=== PATIENT | male | born 1950 | race Caucasian/White ===

== ENCOUNTER → 2016-12-12 | Day surgery (SDC) | payer OTHER ==
[2016-11-02 10:23] VITALS: BMI 31.0
[2016-11-17 15:32] VITALS: Ht 177.8 cm; Wt 100.0 kg
[~2016-12-12] VITALS: Ht 177.8 cm; Wt 100.0 kg
[~2016-12-12] MED LIST: 500ML BSS 0.3ML EPI 1:1000PF IRRIG ONE; ACETAMINOPHEN 325 MG TAB PO PRN; AMIL5TAB15 PO; AMLO-114 PO; AMVISC PLUS 0.8ML SYRINGE INT OCU ONE; ATROPINE SULFATE 0.1 MG/ML 5ML SYR IV PRN; BRIMONIDINE TART 0.2% OP SOLN PER DROP CHARGE ONE; BSS FLUSH ONE; CAMPLOT10 TOP; ENDOCOAT 0.85ML SYRINGE INT OCU ONE; EZET10TA63 PO; EpHEDrine SULFATE INJ 50 MG/ML AMP IV PRN; EpINEphrine INJ 1MG/ML AMP 1 MG/ML AMP ONE; HYDR-4717 PO; LACTATED RINGER'S 1000ML 500 ML IV SCH; LIDOCAINE 4% OP SOLN DROP CHARGE ONE; LIDOCAINE 4% OP SOLN DROP CHARGE OPR SCH; LIDOCAINE HCL 1% MPF 2 ML VIAL ONE; LORA10TA5 PO; LOSA1TAB38 PO; METO50TA16 PO; MIDAZOLAM HCL 1 MG/ML 2ML VIAL ONE; MIX: 3ML BSS AND 1ML EPI(PF) TOP ONE; MOXIFLOXACIN OPH SOLN PER DROP CHARGE ONE; MULT-845 PO; POTA10CA28 PO; POVIDONE-IODINE OP SOLN 30 ML BTL ONE; PROB1TAB16 PO; PROPARACAINE 0.5% OP SOLN PER DROP CHARGE OPR SCH; TOBRAMYCIN/DEXAMETHASONE OPH OINT PER APPLN CHARGE ONE; VNTHFA/IN INH; ZNT/150 PO
[2016-12-12] MEDS: PHENYLEPHRINE HCL 2.5% OP SOLN PER DROP CHARGE OPR SCH ×2 (09:28→09:33)
[2016-12-12] MEDS: TROPICAMIDE 1% OP SOLN PER DROP CHARGE OPR SCH ×2 (09:29→09:34)
[2016-12-12] MEDS: CYCLOPENTOLATE HCL 1% OP SOLN PER DROP CHARGE OPR SCH ×2 (09:30→09:35)
[2016-12-12] MEDS: KETOROLAC 0.5% OP SOLN PER DROP CHARGE OPR SCH ×2 (09:31→09:36)
[2016-12-12] MEDS: MOXIFLOXACIN OPH SOLN PER DROP CHARGE OPR SCH ×2 (09:32→09:42)
--- NOTE | 2016-12-12 10:08 | History & Physical Bridge - [place] ---
H&P Re-Evaluation Bridge Note: I have examined the patient, reviewed the History & Physical and in the interval since the performance of the History & Physical I have noted the following changes of clinical significance: No changes noted
--- NOTE | 2016-12-12 11:08 | Discharge Instructions-SurgCtr ---
Discharge Instructions Date of Service Dec 12, 2016. Visit Reason for Visit: Cataract Right Eye Discharge Discharge Diagnosis / Problem: cataract right eye Discharge Goals Goal(s): Improve function Activity Recommendations Activity Limitations: per Instructions/Follow-up section Lifting Limitations: no more than 5 pounds Anesthesia . Post Anesthesia Instructions: If you have had General Anesthesia or IV Sedation: * Do not drive today. * Resume driving when surgeon permits. * Do not make important decisions or sign legal documents today. * Call surgeon for: 1. Temperature elevations greater than 101 degrees F. 2. Uncontrollable pain. 3. Excessive bleeding. 4. Persistent nausea and vomiting. 5. Medication intolerance (nausea, vomiting or rash). * For nausea and vomiting use only clear liquids such as: tea, soda, bouillon until nausea subsides, then gradually increase diet as tolerated. * If you have any concerns or questions, call your surgeon's office. If physician is unavailable and it is an emergency, call 911 or go to the nearest emergency room. . Instructions / Follow-Up Instructions / Follow-Up ACTIVITY RECOMMENDATIONS: * Light activities * You may walk outside, read, watch television. * Mild irritation and blurred vision are common for the first few days, redness around the white part of the eye is common. MEDICATIONS: Resume previous medications unless instructed otherwise by your surgeon. Eye drops (today and tomorrow): Cipro - one drop in operative eye every 2 hours while awake Prednisolone 1% - one drop in operative eye every 2 hours while awake Bromfenac - one drop in operative eye once daily SPECIAL CARE INSTRUCTIONS: * If any problems or concerns, please call Dr. Franklin's office at . * Keep plastic shield taped over eye to sleep at night. * Keep plastic shield taped over eye except to administer eye drops. * Keep plastic shield on until office visit the following day. FOLLOW UP VISIT: Follow-up with Dr. Franklin in the [place] office as scheduled. If not already scheduled, please call the office at . Diet Recommendations Home Diet: resume previous diet Procedures Procedures Performed: Right Cataract Phacoemulsification With Intraocular Lens Implant Pending Studies Studies pending at discharge: no Medical Emergencies . Who to Call and When: Medical Emergencies: If at any time you feel your situation is an emergency, please call 911 immediately. . Non-Emergent Contact Non-Emergency issues call your: Multimedia Author . . "Provider Documentation" section prepared by Nuno Franklin.
--- NOTE | 2016-12-12 11:09 | [facility] Post Operative Brief Note ---
Immediate Operative Summary Operative Date Dec 12, 2016. Pre-Operative Diagnosis Cataract Right Eye Post-Operative Diagnosis Same Procedure(s) Performed Right Cataract Phacoemulsification With Intraocular Lens Implant Surgeon Dr. Franklin Supervisor Phosphoric Acid Surgeon(s) None Estimated Blood Loss 0 Findings cataract right eye Specimens None Complication(s) None Disposition Recovery Room / PACU
[2016-12-12 11:15] VITALS: TEMP 36.8
[2016-12-12 11:32] VITALS: BP 113/64; PULSE 50; O2SAT 95
--- NOTE | 2016-12-12 11:33 | Anesthesia Progress Nt - [facility] ---
Anesthesia Post Op Note Date & Time Dec 12, 2016 at 11:33 Vital Signs Pain Intensity: 0 Vital Signs Past 12 Hours Date Time Temp Pulse Resp B/P Pulse Ox O2 Delivery O2 Flow Rate FiO2 12/12/16 11:15 36.8 52 16 113/66 95 Room Air 12/12/16 09:21 36.9 55 20 141/78 95 Room Air Notes Mental Status: alert / awake / arousable, participated in evaluation Pt Amnestic to Procedure: Yes Nausea / Vomiting: adequately controlled Pain: adequately controlled Airway Patency, RR, SpO2: stable & adequate BP & HR: stable & adequate Hydration State: stable & adequate Anesthetic Complications: no major complications apparent
--- NOTE | 2016-12-12 14:10 | OPERATIVE REPORT ---
DATE OF OPERATION: 12/12/2016 PREOPERATIVE DIAGNOSIS: Cataract, right eye. POSTOPERATIVE DIAGNOSIS: Cataract, right eye. PROCEDURE: Phacoemulsification cataract extraction with intraocular lens placement, right eye. SURGEON: Dr. Franklin. COMPLICATIONS: None. ESTIMATED BLOOD LOSS: None. ANESTHESIA: Topical with sedation. OPERATION AND FINDINGS: DESCRIPTION OF PROCEDURE: After informed consent was obtained in the holding area the patient was wheeled back to the Operating Room where cardiac monitoring leads and oxygen by nasal cannula was administered by Anesthesia. Gentle IV sedation was given, and the patient's right eye was prepped and draped in usual sterile fashion. A wire lid speculum was placed into the right eye and the operating microscope was swung into position. Using 0.12 forceps and a Supersharp blade a paracentesis port was made 3 o'clock hours away from the 9 o'clock position of patient's right eye. 1% non-preserved Lidocaine was then injected into the anterior chamber for anesthesia. A 2.2 mm keratotome blade was then used to make a shelved clear corneal incision at the 9 o'clock position of his right eye. Amvisc was injected into the anterior chamber and a cystotome and Utrata forceps were used to perform a curvilinear capsulorrhexis. BSS on a hydrodissection cannula was used to hydrodissect the lens nucleus away from the capsular bag. The phacoemulsification handpiece was then used in a stop and chop fashion to remove the lens nucleus. The irrigation and aspiration handpiece was then used to remove the residual cortical material. Amvisc was injected into the capsular bag and anterior chamber and a Bausch \T\ Lomb MX60 23.0 Diopter intraocular lens was injected into the capsular bag. Irrigation and aspiration handpiece was used to remove the residual viscoelastic material. The wounds were hydrated and noted to be watertight. The wire lid speculum was removed from the eye. Vigamox, Brimonidine, and TobraDex ointment were placed on the eye and it was shielded. It should be noted that EndoCoat was used throughout the case to protect the cornea endothelium. A mixture of 1 mL of nonpreserved epinephrine and 3 mL of BSS was also injected into the eye at the beginning of the case to aid with pupillary dilation in this Flomax patient. DISPOSITION: The patient tolerated the procedure well and was wheeled to the post anesthesia care unit in stable condition. I attest to the content of the Intraoperative Record and any orders documented therein. Any exceptions are noted below. I attest to the content of the Intraoperative Record and any orders documented therein. Any exceptio ns are noted below.
== END | disposition home or self-care (01) ==
LOC: X.SURG 08:59
PROVIDERS: ATTEND Ophthalmology
DX: H25.11 Age-related nuclear cataract, right eye (principal); I51.9 Heart disease, unspecified; I10 Essential (primary) hypertension; Z82.49 Family history of ischemic heart disease and other diseases of the circulatory system; Z85.46 Personal history of malignant neoplasm of prostate

== ENCOUNTER 2019-03-11 15:01 | Inpatient (IN) ==
[2019-03-11] MEDS ORDERED: SODIUM CHLORIDE 0.9% 500 ML IV SCH (15:15)
--- NOTE | 2019-03-11 15:31 | XRay Report ---
XR chest 1V portable CLINICAL HISTORY: Chest Pain dyspnea COMPARISON STUDY: 01/09/2019 FINDINGS: Increased cardiac size as well as pulmonary vasculature. Diaphragms are smooth. Costophreni c angles are sharp. Prominence of the right hilar region most likely secondary to rotational technica l effects IMPRESSION: . Congestive heart failure. The above report was generated using voice recognition software. It may contain grammatical, syntax or spelling errors. Electronically signed by: Everette Jaquez M.D. 03/11/2019 3:30 PM
[2019-03-11 17:11] LABS: Basophils # (auto) 0.01 K/uL (0-0.2); Basophils % (auto) 0.1 %; Eosinophils # (auto) 0.01 K/uL (0-0.5); Eosinophils % (auto) 0.1 %; Hematocrit (blood only) 31.2 % (42-52); Hemoglobin 10.6 g/dL (14.0-18.0); Immature Granulocytes # (auto) 0.04 K/uL (0.00-0.02); Immature Granulocytes % (auto) 0.3 %; Lymphocytes # (auto) 0.97 K/uL (1.2-3.4); Lymphocytes % (auto) 8.3 %; Mean Corpuscular Volume 92.6 fL (80-100); Mean Platelet Volume 11.9 fL (7.4-10.4); Monocytes # (auto) 0.78 K/uL (0.11-0.59); Monocytes % (auto) 6.7 %; Neutrophils # (auto) 9.84 K/uL (1.4-6.5); Neutrophils % (auto) 84.5 %; Platelet Count 128 K/uL (130-400); RDW Standard Deviation 47.3 fL (36.4-46.3); Red Blood Count 3.37 M/uL (4.7-6.1); White Blood Count 11.65 K/uL (4.8-10.8)
[2019-03-11 17:20] LABS: INR 2.9 (0.9-1.1); Prothrombin Time 27.7 Seconds (9.0-12.0)
[2019-03-11 17:34] LABS: Albumin Level 3.6 gm/dl (3.4-5.0); BUN Creatinine Ratio 10.9 (10-20); Bilirubin Direct 0.4 mg/dl (0-0.2); Calcium 8.8 mg/dl (8.5-10.1); Creatinine Clr Calc Pharmacy 49.1 ml/min; Est GFR (African American) 45.7; Est GFR (Non-African American) 39.4; Magnesium 2.1 mg/dl (1.8-2.4); Potassium 3.4 mmol/L (3.5-5.1)
[2019-03-11 17:39] LABS: Bilirubin,Total 1.3 mg/dl (0.2-1); Globulin 3.6 gm/dl (2.5-4.0); Total Protein 7.2 gm/dl (6.4-8.2); Troponin I 0.022 ng/ml (0-0.045)
--- NOTE | 2019-03-11 18:26 | CT Scan Report ---
CT OF THE CHEST WITHOUT IV CONTRAST CLINICAL HISTORY: Short of breath. Prostate cancer. COMPARISON STUDY: Chest CT January 09, 2019. Chest radiograph March 11, 2019. CT DOSE: 1339.98 mGy.cm TECHNIQUE: Axial images of the chest were obtained without IV contrast. Images were reviewed in the axial, sagittal, and coronal planes. IV contrast was not administered for this examination. Automat ed exposure control was utilized for the study. A dose lowering technique was utilized adhering to t he principles of ALARA. FINDINGS: Mildly enlarged mediastinal lymph nodes are noted, including a precarinal lymph node that measures 1.5 cm in short axis diameter. The heart is mildly enlarged. Extensive coronary artery calci fication. Occluder device within left atrial appendage is noted. Note is made of small right and trac e left pleural effusions. Associated bilateral lower lobe airspace opacity. Bilateral perihilar opaci ties are greater within the right lung. Interlobular septal thickening is noted. Lungs are suboptimal ly assessed given respiratory motion. A few small sclerotic lesions within the bilateral ribs are sim ilar to CT of January 09, 2019. These remain indeterminate. The abdomen and pelvis will be reported separa tely. IMPRESSION: 1. Interlobular septal thickening consistent with pulmonary edema. Small right and trace left pleural effusions. 2. Extensive bilateral airspace opacities which favor alveolar edema although pneumonia could appear similar. 3. No change in several indeterminate sclerotic lesions within the bilateral ribs which be assessed o n subsequent exams to ensure stability. 4. Mild mediastinal lymphadenopathy which may be reactive but can be assessed on subsequent exams. Electronically signed by: Manjeet Saucedo M.D. 03/11/2019 6:24 PM
--- NOTE | 2019-03-11 18:41 | CT Scan Report ---
CT OF THE ABDOMEN AND PELVIS WITHOUT CONTRAST CLINICAL HISTORY: metastatic prostate CA, vomiting/hemotpysis COMPARISON STUDY: CT of the abdomen and pelvis January 09, 2019. MRI of the abdomen January 23, 2019. TECHNIQUE: Axial images of the abdomen and pelvis were obtained without IV contrast. Images were revi ewed in the axial, sagittal, and coronal planes. Automated exposure control was utilized for the michelle dy. A dose lowering technique was utilized adhering to the principles of ALARA. FINDINGS: These note that the chest CT will be reported separately. No pneumatosis, free air or terence l venous gas is present. Evaluation of the abdomen and pelvis is suboptimal on this unenhanced examin ation. 3.3 cm right hepatic lobe lesion is suboptimally assessed on this exam but likely increased in size since MRI of January 23, 2019 10. An additional 2.2 cm right hepatic lobe lesion has likely increas ed in size. A 3.5 x 2.4 cm terence hepatis lymph node has slightly increased in size since prior MRI. L eft periaortic lymphadenopathy is noted. Index left periaortic lymph node shown image 201 measures 2. 5 x 1.8 cm. Severe right and moderate to severe left hydroureteronephrosis is similar to CT of January 09, 2019. Several distal right ureteral calculi measure up to 4 mm. Note is made of a 4 mm mid left uret eral calculus. Bilateral renal calculi measure up to 9 mm. Water attenuation bilateral renal lesions favor cysts. No evidence for a bowel obstruction. A small amount of ascites is noted. A penile implan t is noted. A 1.2 cm hyperdense nodule within the right hemipelvis on axial image 427 has slightly de creased in size since CT of January 09, 2019. The prostate gland is surgically absent. Colonic diverticulo sis is noted without evidence for acute diverticulitis. IMPRESSION: 1. Increase in terence hepatis and periaortic lymphadenopathy which favors progression of metastatic di sease. 2. Slight increase in size of several indeterminate but suspicious right hepatic lobe lesions. 3. Small amount of ascites. No bowel obstruction. Colonic diverticulosis without evidence for acute d iverticulitis. 4. No change in severe right and moderate to severe left hydroureteronephrosis with distal right uret eral calculi that measure up to 4 mm and a 4 mm mid left ureteral calculus. 2. Cholelithiasis. No evidence for acute cholecystitis. Electronically signed by: Manjeet Saucedo M.D. 03/11/2019 6:38 PM
[2019-03-11] MEDS ORDERED: VANCOMYCIN HCL 2,000 MG in SODIUM CHLORIDE 0.9% 500 ML IV ONE (19:19)
[2019-03-11] MEDS ORDERED: VANCOMYCIN CONSULT ACTIVE PRN (19:19)
[2019-03-11] MEDS ORDERED: CEFEPIME 2,000 MG/20 ML VIAL IV STA (19:19)
[2019-03-11] MEDS ORDERED: DOXYCYCLINE HYCLATE 100 MG in DEXTROSE 5% 100 ML IV STA (19:19)
--- NOTE | 2019-03-11 21:24 | History & Physical Report ---
Date of Service March 11, 2019 Assessment & Plan (1) Hemoptysis: 68-year-old male was admitted on 11 March 2018 for hemoptysis, shortness of breath, and pleural effusions. Hemoptysis, shortness of breath, CAP, pleural effusions: Noted bright red streaks sputum, small volume (sounds definitely less than 30 mL). Suspect CAP as underlying cause, though full source of effusions is unclear. 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 - In ED, afebrile on arrival but later 101.8, not tachycardic, tachypneic in the 30s, moderately hypertensive, with lowest SpO2 of 88% on 2 L NC. WBC 11. BNP 3990. Admit CT chest showed likely pulmonary edema, question of pneumonia, along with small bilateral pleural effusions. - In ED, ordered (? given) vancomycin, doxycycline, cefepime, and NS IVF. On BiPAP. - We will treat for CAP with ceftriaxone and azithromycin. Continue BiPAP with goal to wean to nasal cannula. Check echocardiogram. Anemia: Admit Hb 10.6, MCV 92. Slight hemoptysis as noted above. Monitoring. Metastatic prostate cancer, s/p radical prostatectomy: Followed at [facility], not locally. Is on rucaparib. Elevated creatinine: Admit Cr 1.76. No particular noted history of renal issues. - Hydrate with IVF, recheck in a.m. History of atrial flutter with RVR: S/p Watchman procedure in December 2018. Admit EKG was NSR 80 with QTc 470. On Coumadin apparently for small clot on his device. Admit INR 2.9. - We will temporarily hold Coumadin given the mild hemoptysis. Recheck INR in AM. Likely resume in next 1-[address] a/p findings: - Burton hepatis, periaortic lymphadenopathy, suspicious right hepatic lobe lesions, small amount of ascites. - Colonic diverticulosis. - Unchanged severe right and left hydronephrosis along with ureteral calculi. - Cholelithiasis without evidence of cholecystitis. Constipation: As noted by patient x 5 days prior to admit. BM on 01Jul. - Monitor. Miralax prn. Ongoing medical issues: - Hypertension, hyperlipidemia: Continue amiloride, amlodipine, ezetimibe, hydralazine, losartan, metoprolol, potassium. - GERD: On ranitidine. - MARTHA on CPAP. - Adjustment disorder, anxiety: Continue bupropion. - Prior GI bleed: Around 2012. Patient says colonoscopy in February 2019 noted polyps and endoscopy was unremarkable. - Nephrolithiasis. - Osteoarthritis: Bilateral knees. Code status: Full code. Diet: Regular. DVT prophy: Coumadin, SCDs. PT/OT: Deferred. Disbo: Admit to [facility] with telemetry. (2) Shortness of breath: (3) Community acquired pneumonia: (4) Pleural effusion: (5) Anemia: (6) 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: (7) Elevated serum creatinine: (8) Atrial fibrillation: (9) Ascites: (10) Diverticulosis: (11) Hydronephrosis: (12) Cholelithiasis: (13) Constipation: (14) HTN (hypertension): (15) Hyperlipidemia: (16) GERD (gastroesophageal reflux disease): (17) MARTHA on CPAP: (18) Adjustment disorder: (19) Anxiety: (20) History of GI bleed: (21) Nephrolithiasis: (22) Osteoarthritis: History of Present Illness Primary Care Provider: Bruce Ness MD 68-year-old male says that just prior to arrival in the admission he noted a couple of coughs that were productive of a bright red bloody-appearing streaks of sputum. Says his cough started earlier today. Has felt warm throughout today. He did note a single episode of non-bloody emesis earlier this morning with some slight stomach upset, though this was about 30 minutes after taking his chemotherapy for his metastatic prostate cancer. He notes some shortness of breath today but states is actually been more like for the past few months. Apparently this is not been previously evaluated. He denies associated chest pain. Says that some swelling in his legs comes and goes. Also states that he has been constipated for about 5 days. He contacted his oncologist about this, was recommended to start MiraLAX, and had a subsequent normal sized bowel movement today. No other acute patient concerns. - He says all of his oncology care is via [facility]. No local [place] providers. - His primary care provider is Dr. Ness. His cardiologists are Dr. Martinez and Amarjit. - Past medical history includes metastatic prostate cancer, atrial flutter with RVR, diverticulosis, nephrolithiasis, hypertension, hyperlipidemia, GERD, MARTHA, adjustment disorder, anxiety, GI bleed, osteoarthritis. - Past surgical history includes radical prostatectomy, tonsillectomy, implantation of artificial urinary sphincter, cataract surgery - Social history includes never smoking. Rare alcohol use. Lives at home with . Allergies Allergy/AdvReac Type Severity Reaction Status Date / Time atorvastatin Allergy Unknown "FUZZY Verified 03/11/19 16:35 THOUGHT PROCESS AND DEPRESSION LIKE SYMPTOMS" lisinopril Allergy Unknown SWELLING Verified 03/11/19 16:35 IN ANKLES Eivasvl-Waf-Maq Reductase Allergy Unknown Verified 03/11/19 16:35 Inhibitor Home Medications Home Medications Medication Instructions Recorded Confirmed Type Centrum Silver 1 tab PO DAILY 07/04/18 03/11/19 History amiloride 5 mg PO QAM 07/04/18 03/11/19 History amlodipine 10 mg PO QAM 07/04/18 03/11/19 History hydralazine 75 mg PO TID 07/04/18 03/11/19 History losartan 100 mg PO QAM 07/04/18 03/11/19 History metoprolol tartrate 50 mg PO AMPM 07/04/18 03/11/19 History potassium chloride 20 meq PO QAM 07/04/18 03/11/19 History ranitidine HCl 150 mg PO QPM 07/04/18 03/11/19 History amoxicillin 4 cap PO UD PRN 01/09/19 03/11/19 History cholecalciferol (vitamin D3) 400 unit PO DAILY 01/09/19 03/11/19 History [Vitamin D3] cyclobenzaprine 5 - 10 mg PO HS PRN 01/09/19 03/11/19 History loratadine 10 mg PO DAILY PRN 01/09/19 03/11/19 History melatonin 2.5 mg PO HS 01/09/19 03/11/19 History metoprolol tartrate 25 mg PO . DAILY @ MIDDAY 01/09/19 03/11/19 History terazosin 4 mg PO HS 01/09/19 03/11/19 History bupropion HCl XL 150 mg 24 hr 150 mg PO QAM #30 tab 03/05/19 03/11/19 Rx tablet, extended release rucaparib 300 mg tablet 600 mg PO BID #180 tab 03/05/19 03/11/19 Rx warfarin 5 mg tablet 5 mg PO .DAILY UD 03/05/19 03/11/19 History ezetimibe 10 mg PO QPM 03/11/19 03/11/19 History Past Med/Surg History Medical History Acid reflux (Acute) Adjustment disorder (Acute) Arthritis (Acute) Atrial fibrillation (Acute) Hyperlipidemia (Acute) Community acquired pneumonia (Acute) HTN (hypertension) (Chronic) GERD (gastroesophageal reflux disease) (Chronic) Dyslipidemia (Chronic) MARTHA on CPAP (Chronic) History of prostate cancer (Chronic) Atrial flutter with rapid ventricular response (Acute) Anemia Anxiety Atrial flutter Cancer PROSTATE CANCER Diverticulosis GERD (gastroesophageal reflux disease) Hyperlipidemia Hypertension Kidney stones Osteoarthritis Sleep apnea CPAP Surgical History S/P prostatectomy (Chronic) S/P tonsillectomy (Chronic) Status post implantation of artificial urinary sphincter (Chronic) H/O lithotripsy (Chronic) Colon polyp REMOVED (LEELA) VIA EGD H/O eye surgery RT EYE-LASER PROCEDURE History of colonoscopy History of esophagogastroduodenoscopy (EGD) History of implantation of artificial sphincter History of lithotripsy History of prostatectomy WITH RADIATION History of tonsillectomy History of tooth extraction Family History Brother Family history of diabetes mellitus Family hx of colon cancer Alcohol abuse Cancer Hypertension Lung disease Cardiac disorder Father Alcohol abuse Hypertension Cardiac disorder Cancer Unknown Myocardial infarction Prostate cancer Colorectal cancer Social History Preferred Language: Maldivian Communication Ability: Effective Beliefs That Will Affect Care: None Current Living Situation: Spouse Feels Safe at Home: Yes Smoking Status: Never smoker Second Hand Exposure: No Hx Alcohol Use: No Hx Substance Use: No Review of Systems Review of Systems: Constitutional: Positive feeling warm and chills. Eyes: Denies any visual loss or diplopia ENT: Denies any ear/nose/throat pain or difficulty speaking or swallowing Respiratory: Positive cough, mild hemoptysis, and dyspnea. Cardiovascular: Denies any chest pain. Ongoing on and off feeling of extremity edema. Gastrointestinal: Transient nausea and vomiting. Denies diarrhea. Positive recent constipation. Denies ongoing abdominal pain. Musculoskeletal: Denies any acute extremity pains, myalgias, or focal weakness Skin: Denies any known acute rashes or lesions Neuro: Denies any headache, acute focal weakness or numbness, or difficulties with speech or swallow. Hematologic: Ongoing prostate cancer chemotherapy. Physical Exam Physical Exam: GENERAL: Awake, alert, well-appearing, in no acute distress. HENT: Normocephalic, atraumatic. Very dry oropharynx but no blood seen in posterior pharynx or anterior nasal mucosa. EYES: Normal conjunctiva. Sclera non-icteric. NECK: Inspection normal. Non-tender. Supple and full ROM. CARDIAC: +S1S2 RRR, no murmurs. RESPIRATORY: Decreased breath sounds throughout. Some rales at the bilateral bases. Normal respiratory effort. Conversational in full sentences on nasal cannula oxygen, though some mild work of breathing. This improves on BiPAP. GI: +BS, soft, but appears mildly distended. No tenderness to palpation. No rebound or guarding. EXTREMITIES: Moving all extremities naturally and easily. Trace edema in bilateral extremities. No calf tenderness. NEURO: No gross neuro deficits. Results & Data Vital Signs (Past 12 Hours) Vital Signs Temp Pulse Resp BP Pulse Ox 03/11/19 21:04 83 30 H 99 03/11/19 19:00 83 28 H 153/74 H 96 03/11/19 18:50 87 23 98 03/11/19 18:40 85 30 H 95 03/11/19 18:31 87 31 H 95 03/11/19 18:30 84 30 H 150/71 H 96 03/11/19 18:20 86 29 H 95 03/11/19 18:19 156/73 H 03/11/19 17:40 85 22 95 03/11/19 17:31 86 26 H 92 03/11/19 17:30 87 24 92 03/11/19 17:20 86 28 H 89 L 03/11/19 17:10 86 34 H 89 L 03/11/19 17:00 87 27 H 90 03/11/19 16:50 86 20 90 03/11/19 16:40 86 23 90 03/11/19 16:30 88 32 H 89 L 03/11/19 16:20 88 33 H 90 03/11/19 16:10 89 30 H 85 L 03/11/19 16:00 93 H 36 H 88 L 03/11/19 15:50 90 32 H 88 L 03/11/19 15:40 93 H 40 H 90 03/11/19 15:35 84 24 90 03/11/19 15:30 84 34 H 136/67 91 03/11/19 15:24 89 L 03/11/19 15:05 36.8 C 77 20 133/67 90 Laboratory Results 03/11/19 03/11/19 03/11/19 Range/Units 20:21 16:54 16:54 WBC (4.8-10.8) K/uL RBC (4.7-6.1) M/uL Hgb (14.0-18.0) g/dL Hct (42-52) % MCV (80-100) fL MCH (25-34) pg MCHC (32-36) g/dL RDW Std Deviation (36.4-46.3) fL RDW Coeff of Lauren (11.5-14.5) % Plt Count (130-400) K/uL MPV (7.4-10.4) fL Immature Gran % (Auto) % Neut % (Auto) % Lymph % (Auto) % [place] % (Auto) % Eos % (Auto) % Baso % (Auto) % Immature Gran # (Auto) (0.00-0.02) K/uL Neut # (Auto) (1.4-6.5) K/uL Lymph # (Auto) (1.2-3.4) K/uL [place] # (Auto) (0.11-0.59) K/uL Eos # (Auto) (0-0.5) K/uL Baso # (Auto) (0-0.2) K/uL PT (9.0-12.0) Seconds INR (0.9-1.1) Sodium (136-145) mmol/L Potassium (3.5-5.1) mmol/L Chloride (98-107) mmol/L Carbon Dioxide (21-32) mmol/L Anion Gap (3-11) BUN (7-18) mg/dl Creatinine (0.6-1.4) mg/dl Est Cr Clr Drug Dosing ml/min Est GFR ( Amer) Est GFR (Non-Af Amer) BUN/Creatinine Ratio (10-20) Glucose (70-99) mg/dl Lactate 2.0 (0.4-2.0) mmol/L Calcium (8.5-10.1) mg/dl Magnesium (1.8-2.4) mg/dl Total Bilirubin (0.2-1) mg/dl Direct Bilirubin (0-0.2) mg/dl AST (15-37) U/L ALT (12-78) U/L Alkaline Phosphatase (45-117) U/L Troponin I (0-0.045) ng/ml NT-Pro-B Natriuret Pep 3990 H (0-900) pg/ml Total Protein (6.4-8.2) gm/dl Albumin (3.4-5.0) gm/dl Globulin (2.5-4.0) gm/dl Albumin/Globulin Ratio (0.9-2) Lipase (73-393) U/L Blood Type A Positive Antibody Screen NEGATIVE 03/11/19 03/11/19 03/11/19 Range/Units 16:54 16:54 16:54 WBC 11.65 H (4.8-10.8) K/uL RBC 3.37 L (4.7-6.1) M/uL Hgb 10.6 L (14.0-18.0) g/dL Hct 31.2 L (42-52) % MCV 92.6 (80-100) fL MCH 31.5 (25-34) pg MCHC 34.0 (32-36) g/dL RDW Std Deviation 47.3 H (36.4-46.3) fL RDW Coeff of Lauren 14.0 (11.5-14.5) % Plt Count 128 L (130-400) K/uL MPV 11.9 H (7.4-10.4) fL Immature Gran % (Auto) 0.3 % Neut % (Auto) 84.5 % Lymph % (Auto) 8.3 % [place] % (Auto) 6.7 % Eos % (Auto) 0.1 % Baso % (Auto) 0.1 % Immature Gran # (Auto) 0.04 H (0.00-0.02) K/uL Neut # (Auto) 9.84 H (1.4-6.5) K/uL Lymph # (Auto) 0.97 L (1.2-3.4) K/uL [place] # (Auto) 0.78 H (0.11-0.59) K/uL Eos # (Auto) 0.01 (0-0.5) K/uL Baso # (Auto) 0.01 (0-0.2) K/uL PT 27.7 H (9.0-12.0) Seconds INR 2.9 H (0.9-1.1) Sodium 142 (136-145) mmol/L Potassium 3.4 L (3.5-5.1) mmol/L Chloride 108 H (98-107) mmol/L Carbon Dioxide 23 (21-32) mmol/L Anion Gap 11.0 (3-11) BUN 19 H (7-18) mg/dl Creatinine 1.76 H (0.6-1.4) mg/dl Est Cr Clr Drug Dosing 49.1 ml/min Est GFR ( Amer) 45.7 Est GFR (Non-Af Amer) 39.4 BUN/Creatinine Ratio 10.9 (10-20) Glucose 97 (70-99) mg/dl Lactate (0.4-2.0) mmol/L Calcium 8.8 (8.5-10.1) mg/dl Magnesium 2.1 (1.8-2.4) mg/dl Total Bilirubin 1.3 H (0.2-1) mg/dl Direct Bilirubin 0.4 H (0-0.2) mg/dl AST 20 (15-37) U/L ALT 24 (12-78) U/L Alkaline Phosphatase 71 (45-117) U/L Troponin I 0.022 (0-0.045) ng/ml NT-Pro-B Natriuret Pep (0-900) pg/ml Total Protein 7.2 (6.4-8.2) gm/dl Albumin 3.6 (3.4-5.0) gm/dl Globulin 3.6 (2.5-4.0) gm/dl Albumin/Globulin Ratio 1.0 (0.9-2) Lipase 70 L (73-393) U/L Blood Type Antibody Screen Medications Administered Discontinued Medications Sodium Chloride (Nss) 500 mls @ 999 mls/hr IV .Q31M HIMA Stop: 07/01/19 15:45 Last Admin: 03/11/19 17:02 Dose: Not Given Documented by: [id number] Code Status & VTE Plan Code Status Full code VTE Prophylaxis Plan VTE Prophylaxis will be ordered: Yes Supervising Physician Co-Signing Physician Notes Patient seen and examined, chart reviewed, case discussed with Dr. Prado and I agree with his assessment and plan as documented above. Briefly, patient is a 68yo C male with history of metastatic prostate CA s/p radical prostatectomy/XRT/chemo/androgen deprivation presently enrolled in clinical trial. Patient presents with one day of cough/SOB and blood tinged sputum. Nausea and vomiting earlier today. Febrile in ER On exam he is febrile, mildly hypertensive, saturating 88-92% on NC 2L during exam, improved to 96% with returning to BiPAP 12/6 50% after exam HEENT - dry oral mucosa Heart - +S1/S2, regular with ectopy, no m/r/g Lungs - diminished in bases, soft crackles in right mid lung Abd - +BS, soft, NT/ND Ext - trace edema Labs and images reviewed, significant for WBC=11.65, Sjo=153, Hg=10.6, Hct=31.2, INR=2.9. UDB=[id number] Assessment/Plan: 68yo C male with metastatic prostate CA presenting with possible PNA, fever/leukocytosis -Admit to medical floor -Ceftriaxone/Azithromycin -BiPAP -Remainder of plan as above PG Care Time/CCT Total # of Minutes Spent Total Time Spent with Patient: Total time spent is greater than 50% in coordination of care (as documented) at patient's floor/unit and/or counseling patient: Resident Activity Tracking Resident Involvement: Resident Care Provided Care Provided: Adult Hospital Medicine
--- NOTE | 2019-03-11 21:38 | Emergency Department Note ---
Entered by Garo Stoner acting as a scribe for Nicolás Smith MD History of Present Illness General Chief complaint: Cough Stated complaint: COUGHING UP BLOOD Time Seen by Provider: 03/11/19 15:14 Source: patient History of Present Illness Onset (ago): hour(s) 1 Location: chest (lungs) Pain Consistency: + now resolved Quality: + other (hemoptysis) Associated symptoms: no other (nosebleeds) The patient is a 68 year old male who presents to the Emergency Room with compl aints of an episode of hemoptysis occurring about one hour prior to arrival. The patient reports that after coughing for a period of time, he coughed sputum with some blood into a tissue. He states that he vomited this morning without blood, but he attributes this to a side effect of a chemotherapy medication he is taking for prostate cancer. He states that he has recently been constipated, but he had a bowel movement prior to arrival that was not black or bloody. He notes that he felt congested yesterday. He denies nosebleeds or history of these symptoms. He states that his oncologist is at [facility], and he does not see a local oncologist. He reports that he takes Coumadin for atrial fibrillation, and his last INR was 2.7. Home Medications Home Medications Medication Instructions Recorded Confirmed Type Centrum Silver 1 tab PO DAILY 07/04/18 03/11/19 History amiloride 5 mg PO QAM 07/04/18 03/11/19 History amlodipine 10 mg PO QAM 07/04/18 03/11/19 History hydralazine 75 mg PO TID 07/04/18 03/11/19 History losartan 100 mg PO QAM 07/04/18 03/11/19 History metoprolol tartrate 50 mg PO AMPM 07/04/18 03/11/19 History potassium chloride 20 meq PO QAM 07/04/18 03/11/19 History ranitidine HCl 150 mg PO QPM 07/04/18 03/11/19 History amoxicillin 4 cap PO UD PRN 01/09/19 03/11/19 History cholecalciferol (vitamin D3) 400 unit PO DAILY 01/09/19 03/11/19 History [Vitamin D3] cyclobenzaprine 5 - 10 mg PO HS PRN 01/09/19 03/11/19 History loratadine 10 mg PO DAILY PRN 01/09/19 03/11/19 History melatonin 2.5 mg PO HS 01/09/19 03/11/19 History metoprolol tartrate 25 mg PO . DAILY @ MIDDAY 01/09/19 03/11/19 History terazosin 4 mg PO HS 01/09/19 03/11/19 History bupropion HCl XL 150 mg 24 hr 150 mg PO QAM #30 tab 03/05/19 03/11/19 Rx tablet, extended release rucaparib 300 mg tablet 600 mg PO BID #180 tab 03/05/19 03/11/19 Rx warfarin 5 mg tablet 5 mg PO .DAILY UD 03/05/19 03/11/19 History ezetimibe 10 mg PO QPM 03/11/19 03/11/19 History Allergies Allergy/AdvReac Type Severity Reaction Status Date / Time atorvastatin Allergy Unknown "FUZZY Verified 03/11/19 16:35 THOUGHT PROCESS AND DEPRESSION LIKE SYMPTOMS" lisinopril Allergy Unknown SWELLING Verified 03/11/19 16:35 IN ANKLES Hfuelxp-Zcr-Bpm Reductase Allergy Unknown Verified 03/11/19 16:35 Inhibitor Past Med/Surg History Medical History Acid reflux (Acute) Adjustment disorder (Acute) Arthritis (Acute) Atrial fibrillation (Acute) Hyperlipidemia (Acute) Community acquired pneumonia (Acute) HTN (hypertension) (Chronic) GERD (gastroesophageal reflux disease) (Chronic) Dyslipidemia (Chronic) MARTHA on CPAP (Chronic) History of prostate cancer (Chronic) Atrial flutter with rapid ventricular response (Acute) Anemia Anxiety Atrial flutter Cancer PROSTATE CANCER Diverticulosis GERD (gastroesophageal reflux disease) Hyperlipidemia Hypertension Kidney stones Osteoarthritis Sleep apnea CPAP Surgical History S/P prostatectomy (Chronic) S/P tonsillectomy (Chronic) Status post implantation of artificial urinary sphincter (Chronic) H/O lithotripsy (Chronic) Colon polyp REMOVED (BENING) VIA EGD H/O eye surgery RT EYE-LASER PROCEDURE History of colonoscopy History of esophagogastroduodenoscopy (EGD) History of implantation of artificial sphincter History of lithotripsy History of prostatectomy WITH RADIATION History of tonsillectomy History of tooth extraction Family History Brother Family history of diabetes mellitus Family hx of colon cancer Alcohol abuse Cancer Hypertension Lung disease Cardiac disorder Father Alcohol abuse Hypertension Cardiac disorder Cancer Unknown Myocardial infarction Prostate cancer Colorectal cancer Social History Preferred Language: Serbian Communication Ability: Effective Water Technician Required: No Beliefs That Will Affect Care: None Current Living Situation: Spouse Other Information That Helps Us Care for You: No Feels Safe at Home: Yes Safety Concerns: Feels Safe At This Time Smoking Status: Never smoker Do You Dip or Chew Tobacco: No Second Hand Exposure: No Hx Alcohol Use: No Hx Substance Use: No Review of Systems See HPI for pertinent positives & negatives. and A total of 10 systems reviewed and were otherwise negative Physical Exam Vital Signs Vital Signs - 24 hr 03/11/19 15:05 03/11/19 15:24 03/11/19 15:30 Temperature 36.8 C Temperature Source Oral Sepsis Recent Fever Within 48 Hours No Sepsis New/Unexplained Change in Mental Status No Sepsis Action Taken by Nursing No Action Required Pulse Rate 77 84 Pulse Rate from SpO2 Sensor 84 Pulse Rhythm Regular Pulse Strength Normal Respiratory Rate 20 34 H Respiratory Effort / Characteristics Non-Labored Spontaneous Respiratory Depth Normal Respiratory Pattern Regular Blood Pressure 133/67 136/67 Blood Pressure Mean 89 90 Blood Pressure Position Sitting Pulse Oximetry 90 89 L 91 Oxygen Delivery Method Room Air Nasal Cannula Oxygen Flow Rate 2 Fraction of Inspired Oxygen 03/11/19 15:35 03/11/19 15:40 03/11/19 15:50 Temperature Temperature Source Sepsis Recent Fever Within 48 Hours Sepsis New/Unexplained Change in Mental Status Sepsis Action Taken by Nursing Pulse Rate 84 93 H 90 Pulse Rate from SpO2 Sensor 84 89 90 Pulse Rhythm Pulse Strength Respiratory Rate 24 40 H 32 H Respiratory Effort / Characteristics Respiratory Depth Respiratory Pattern Blood Pressure Blood Pressure Mean Blood Pressure Position Pulse Oximetry 90 90 88 L Oxygen Delivery Method Oxygen Flow Rate Fraction of Inspired Oxygen 03/11/19 16:00 03/11/19 16:10 03/11/19 16:20 Temperature Temperature Source Sepsis Recent Fever Within 48 Hours Sepsis New/Unexplained Change in Mental Status Sepsis Action Taken by Nursing Pulse Rate 93 H 89 88 Pulse Rate from SpO2 Sensor 91 H 89 88 Pulse Rhythm Pulse Strength Respiratory Rate 36 H 30 H 33 H Respiratory Effort / Characteristics Respiratory Depth Respiratory Pattern Blood Pressure Blood Pressure Mean Blood Pressure Position Pulse Oximetry 88 L 85 L 90 Oxygen Delivery Method Oxygen Flow Rate Fraction of Inspired Oxygen 03/11/19 16:30 03/11/19 16:40 03/11/19 16:50 Temperature Temperature Source Sepsis Recent Fever Within 48 Hours Sepsis New/Unexplained Change in Mental Status Sepsis Action Taken by Nursing Pulse Rate 88 86 86 Pulse Rate from SpO2 Sensor 86 86 86 Pulse Rhythm Pulse Strength Respiratory Rate 32 H 23 20 Respiratory Effort / Characteristics Respiratory Depth Respiratory Pattern Blood Pressure Blood Pressure Mean Blood Pressure Position Pulse Oximetry 89 L 90 90 Oxygen Delivery Method Oxygen Flow Rate Fraction of Inspired Oxygen 03/11/19 17:00 03/11/19 17:10 03/11/19 17:20 Temperature Temperature Source Sepsis Recent Fever Within 48 Hours Sepsis New/Unexplained Change in Mental Status Sepsis Action Taken by Nursing Pulse Rate 87 86 86 Pulse Rate from SpO2 Sensor 87 86 88 Pulse Rhythm Pulse Strength Respiratory Rate 27 H 34 H 28 H Respiratory Effort / Characteristics Respiratory Depth Respiratory Pattern Blood Pressure Blood Pressure Mean Blood Pressure Position Pulse Oximetry 90 89 L 89 L Oxygen Delivery Method Oxygen Flow Rate Fraction of Inspired Oxygen 03/11/19 17:30 03/11/19 17:31 03/11/19 17:40 Temperature Temperature Source Sepsis Recent Fever Within 48 Hours Sepsis New/Unexplained Change in Mental Status Sepsis Action Taken by Nursing Pulse Rate 87 86 85 Pulse Rate from SpO2 Sensor 86 85 Pulse Rhythm Pulse Strength Respiratory Rate 24 26 H 22 Respiratory Effort / Characteristics Spontaneous Respiratory Depth Respiratory Pattern Blood Pressure Blood Pressure Mean Blood Pressure Position Pulse Oximetry 92 92 95 Oxygen Delivery Method Oxygen Flow Rate Fraction of Inspired Oxygen 50 03/11/19 18:19 03/11/19 18:20 03/11/19 18:30 Temperature Temperature Source Sepsis Recent Fever Within 48 Hours Sepsis New/Unexplained Change in Mental Status Sepsis Action Taken by Nursing Pulse Rate 86 84 Pulse Rate from SpO2 Sensor 87 85 Pulse Rhythm Pulse Strength Respiratory Rate 29 H 30 H Respiratory Effort / Characteristics Respiratory Depth Respiratory Pattern Blood Pressure 156/73 H 150/71 H Blood Pressure Mean 100 97 Blood Pressure Position Pulse Oximetry 95 96 Oxygen Delivery Method Oxygen Flow Rate Fraction of Inspired Oxygen 03/11/19 18:31 03/11/19 18:40 03/11/19 18:50 Temperature Temperature Source Sepsis Recent Fever Within 48 Hours Sepsis New/Unexplained Change in Mental Status Sepsis Action Taken by Nursing Pulse Rate 87 85 87 Pulse Rate from SpO2 Sensor 85 88 90 Pulse Rhythm Pulse Strength Respiratory Rate 31 H 30 H 23 Respiratory Effort / Characteristics Respiratory Depth Respiratory Pattern Blood Pressure Blood Pressure Mean Blood Pressure Position Pulse Oximetry 95 95 98 Oxygen Delivery Method Oxygen Flow Rate Fraction of Inspired Oxygen 03/11/19 19:00 03/11/19 21:04 Temperature Temperature Source Sepsis Recent Fever Within 48 Hours Sepsis New/Unexplained Change in Mental Status Sepsis Action Taken by Nursing Pulse Rate 83 83 Pulse Rate from SpO2 Sensor 83 Pulse Rhythm Pulse Strength Respiratory Rate 28 H 30 H Respiratory Effort / Characteristics Non-Labored Spontaneous Respiratory Depth Normal Respiratory Pattern Regular Blood Pressure 153/74 H Blood Pressure Mean 100 Blood Pressure Position Pulse Oximetry 96 99 Oxygen Delivery Method Oxygen Flow Rate Fraction of Inspired Oxygen 50 GENERAL: Awake, alert, fatigued-appearing, in no distress HENT: Normocephalic, atraumatic. Mucous membranes dry. EYES: Normal conjunctiva. Sclera non-icteric. NECK: Supple. No nuchal rigidity. FROM. No JVD. RESPIRATORY: Diminished breath sounds at the bases, otherwise clear to auscultation bilaterally. CARDIAC: Regular rate, normal rhythm. Extremities warm and well perfused. Pulses equal. ABDOMEN: Soft, non-distended. No tenderness to palpation. No rebound or guarding. No masses. RECTAL: Deferred. MUSCULOSKELETAL: Chest examination reveals no tenderness. The back is symmetrical on inspection without obvious abnormality. There is no CVA te nderness to palpation. No joint edema. LOWER EXTREMITIES: Calves are equal size bilaterally and non-tender. No edema. No discoloration. NEURO: Normal sensorium. No sensory or motor deficits noted. SKIN: No rash or jaundice noted. Course 1518: The patient was evaluated in room B3B. A complete history and physical examination were performed. 1925: I updated the patient on results. 1955: I consulted Dr. Sanchez [facility] Hospitalist. The patient will be reevaluated for hospitalization. Administered Medications Sodium Chloride (Nss 1000ml) 1,000 mls @ 80 mls/hr IV .[id number] [facility] Stop: 04/10/19 22:27 Last Admin: 03/12/19 00:07 Dose: 80 mls/hr Documented by: [id number] Ceftriaxone Sodium 2,000 mg/ (Dextrose) 50 mls @ 100 mls/hr IV Q24H [facility]; Protocol Stop: 03/18/19 22:59 Last Infusion: 03/12/19 00:40 Dose: 0 mls/hr Documented by: [id number] Admin: 03/12/19 00:07 Dose: 100 mls/hr Documented by: [id number] Metoprolol Tartrate (Lopressor) 50 mg PO BID [facility] Stop: 04/10/19 22:27 Last Admin: 03/12/19 00:06 Dose: 50 mg Documented by: [id number] Miscellaneous (Order Awaiting Action) 1 ea N/A QS [facility] Stop: 04/11/19 00:00 Last Admin: 03/12/19 00:51 Dose: Not Given Documented by: [id number] Miscellaneous (Order Awaiting Action) 1 ea N/A QS [facility] Stop: 04/11/19 00:00 Last Admin: 03/12/19 00:50 Dose: Not Given Documented by: [id number] Discontinued Medications Sodium Chloride (Nss) 500 mls @ 999 mls/hr IV .Q31M [facility] Stop: 03/11/19 15:45 Last Admin: 03/11/19 17:02 Dose: Not Given Documented by: [id number] Cefepime HCl (Maxipime) 2,000 mg in 20 mls @ 5 mls/min IV NOW STA; Protocol Stop: 03/11/19 19:22 Last Admin: 03/11/19 21:14 Dose: 5 mls/min Documented by: [id number] Vancomycin HCl 2,000 mg/ (Sodium Chloride) 540 mls @ 200 mls/hr IV NOW ONE; Protocol Stop: 03/11/19 22:00 Last Infusion: 03/12/19 00:05 Dose: 0 mls/hr Documented by: [id number] Admin: 03/11/19 21:15 Dose: 200 mls/hr Documented by: [id number] Doxycycline Hyclate 100 mg/ (Dextrose) 110 mls @ 50 mls/hr IV NOW STA Stop: 03/11/19 21:30 Last Infusion: 03/11/19 23:30 Dose: 0 mls/hr Documented by: [id number] Admin: 03/11/19 21:15 Dose: 50 mls/hr Documented by: [id number] Medical Decision Making Differential Diagnosis Differential diagnosis includes: infections, reactive airway disease, pneumonia, pneumothorax, COPD, CHF, cardiac ischemia, pulmonary embolism, musculoskeletal, gastrointestinal, as well as others were entertained. Medical Records Attestation: I reviewed the patient's medical records. Home Medications Current Medication List: was personally reviewed by me Laboratory Data Attestation: I reviewed the patient's lab results. Result diagrams: 03/11/19 16:54 03/11/19 16:54 Lab Results 03/11/19 03/11/19 03/11/19 Range/Units 16:54 16:54 16:54 WBC 11.65 H (4.8-10.8) K/uL RBC 3.37 L (4.7-6.1) M/uL Hgb 10.6 L (14.0-18.0) g/dL Hct 31.2 L (42-52) % MCV 92.6 (80-100) fL MCH 31.5 (25-34) pg MCHC 34.0 (32-36) g/dL RDW Std Deviation 47.3 H (36.4-46.3) fL RDW Coeff of Lauren 14.0 (11.5-14.5) % Plt Count 128 L (130-400) K/uL MPV 11.9 H (7.4-10.4) fL Immature Gran % (Auto) 0.3 % Neut % (Auto) 84.5 % Lymph % (Auto) 8.3 % Guthrie % (Auto) 6.7 % Eos % (Auto) 0.1 % Baso % (Auto) 0.1 % Immature Gran # (Auto) 0.04 H (0.00-0.02) K/uL Neut # (Auto) 9.84 H (1.4-6.5) K/uL Lymph # (Auto) 0.97 L (1.2-3.4) K/uL Guthrie # (Auto) 0.78 H (0.11-0.59) K/uL Eos # (Auto) 0.01 (0-0.5) K/uL Baso # (Auto) 0.01 (0-0.2) K/uL PT 27.7 H (9.0-12.0) Seconds INR 2.9 H (0.9-1.1) Sodium 142 (136-145) mmol/L Potassium 3.4 L (3.5-5.1) mmol/L Chloride 108 H (98-107) mmol/L Carbon Dioxide 23 (21-32) mmol/L Anion Gap 11.0 (3-11) BUN 19 H (7-18) mg/dl Creatinine 1.76 H (0.6-1.4) mg/dl Est Cr Clr Drug Dosing 49.1 ml/min Est GFR ( Amer) 45.7 Est GFR (Non-Af Amer) 39.4 BUN/Creatinine Ratio 10.9 (10-20) Glucose 97 (70-99) mg/dl Lactate (0.4-2.0) mmol/L Calcium 8.8 (8.5-10.1) mg/dl Magnesium 2.1 (1.8-2.4) mg/dl Total Bilirubin 1.3 H (0.2-1) mg/dl Direct Bilirubin 0.4 H (0-0.2) mg/dl AST 20 (15-37) U/L ALT 24 (12-78) U/L Alkaline Phosphatase 71 (45-117) U/L Troponin I 0.022 (0-0.045) ng/ml NT-Pro-B Natriuret Pep (0-900) pg/ml Total Protein 7.2 (6.4-8.2) gm/dl Albumin 3.6 (3.4-5.0) gm/dl Globulin 3.6 (2.5-4.0) gm/dl Albumin/Globulin Ratio 1.0 (0.9-2) Lipase 70 L (73-393) U/L Blood Type Antibody Screen 03/11/19 03/11/19 03/11/19 Range/Units 16:54 16:54 20:21 WBC (4.8-10.8) K/uL RBC (4.7-6.1) M/uL Hgb (14.0-18.0) g/dL Hct (42-52) % MCV (80-100) fL MCH (25-34) pg MCHC (32-36) g/dL RDW Std Deviation (36.4-46.3) fL RDW Coeff of Lauren (11.5-14.5) % Plt Count (130-400) K/uL MPV (7.4-10.4) fL Immature Gran % (Auto) % Neut % (Auto) % Lymph % (Auto) % Guthrie % (Auto) % Eos % (Auto) % Baso % (Auto) % Immature Gran # (Auto) (0.00-0.02) K/uL Neut # (Auto) (1.4-6.5) K/uL Lymph # (Auto) (1.2-3.4) K/uL Guthrie # (Auto) (0.11-0.59) K/uL Eos # (Auto) (0-0.5) K/uL Baso # (Auto) (0-0.2) K/uL PT (9.0-12.0) Seconds INR (0.9-1.1) Sodium (136-145) mmol/L Potassium (3.5-5.1) mmol/L Chloride (98-107) mmol/L Carbon Dioxide (21-32) mmol/L Anion Gap (3-11) BUN (7-18) mg/dl Creatinine (0.6-1.4) mg/dl Est Cr Clr Drug Dosing ml/min Est GFR ( Amer) Est GFR (Non-Af Amer) BUN/Creatinine Ratio (10-20) Glucose (70-99) mg/dl Lactate 2.0 (0.4-2.0) mmol/L Calcium (8.5-10.1) mg/dl Magnesium (1.8-2.4) mg/dl Total Bilirubin (0.2-1) mg/dl Direct Bilirubin (0-0.2) mg/dl AST (15-37) U/L ALT (12-78) U/L Alkaline Phosphatase (45-117) U/L Troponin I (0-0.045) ng/ml NT-Pro-B Natriuret Pep 3990 H (0-900) pg/ml Total Protein (6.4-8.2) gm/dl Albumin (3.4-5.0) gm/dl Globulin (2.5-4.0) gm/dl Albumin/Globulin Ratio (0.9-2) Lipase (73-393) U/L Blood Type A Positive Antibody Screen NEGATIVE Imaging Data Radiologist's Impression: Radiology results as stated below per my review and the radiologist's interpretation: CT OF THE ABDOMEN AND PELVIS WITHOUT CONTRAST CLINICAL HISTORY: metastatic prostate CA, vomiting/hemotpysis COMPARISON STUDY: CT of the abdomen and pelvis January 09, 2019. MRI of the abdomen January 23, 2019. TECHNIQUE: Axial images of the abdomen and pelvis were obtained without IV contrast. Images were reviewed in the axial, sagittal, and coronal planes. Automated exposure control was utilized for the study. A dose lowering technique was utilized adhering to the principles of ALARA. FINDINGS: These note that the chest CT will be reported separately. No pneumatosis, free air or portal venous gas is present. Evaluation of the abdomen and pelvis is suboptimal on this unenhanced examination. 3.3 cm right hepatic lobe lesion is suboptimally assessed on this exam but likely increased in size since MRI of January 23, 2019 10. An additional 2.2 cm right hepatic lobe lesion has likely increased in size. A 3.5 x 2.4 cm terence hepatis lymph node has slightly increased in size since prior MRI. Left periaortic lymphadenopathy is noted. Index left periaortic lymph node shown image 201 measures 2.5 x 1.8 cm. Severe right and moderate to severe left hydroureteronephrosis is similar to CT of January 09, 2019. Several distal right ureteral calculi measure up to 4 mm. Note is made of a 4 mm mid left ureteral calculus. Bilateral renal calculi measure up to 9 mm. Water attenuation bilateral renal lesions favor cysts. No evidence for a bowel obstruction. A small amount of ascites is noted. A penile implant is noted. A 1.2 cm hyperdense nodule within the right hemipelvis on axial image 427 has slightly decreased in size since CT of January 09, 2019. The prostate gland is surgically absent. Colonic diverticulosis is noted without evidence for acute diverticulitis. IMPRESSION: 1. Increase in terence hepatis and periaortic lymphadenopathy which favors progression of metastatic disease. 2. Slight increase in size of several indeterminate but suspicious right hepatic lobe lesions. 3. Small amount of ascites. No bowel obstruction. Colonic diverticulosis without evidence for acute diverticulitis. 4. No change in severe right and moderate to severe left hydroureteronephrosis with distal right ureteral calculi that measure up to 4 mm and a 4 mm mid left ureteral calculus. 2. Cholelithiasis. No evidence for acute cholecystitis. Electronically signed by: Manjeet Saucedo M.D. 03/11/2019 6:[address] OF THE CHEST WITHOUT IV CONTRAST CLINICAL HISTORY: Short of breath. Prostate cancer. COMPARISON STUDY: Chest CT January 09, 2019. Chest radiograph March 11, 2019. CT DOSE: 1339.98 mGy.cm TECHNIQUE: Axial images of the chest were obtained without IV contrast. Images were reviewed in the axial, sagittal, and coronal planes. IV contrast was not administered for this examination. Automated exposure control was utilized for the study. A dose lowering technique was utilized adhering to the principles of ALARA. FINDINGS: Mildly enlarged mediastinal lymph nodes are noted, including a precarinal lymph node that measures 1.5 cm in short axis diameter. The heart is mildly enlarged. Extensive coronary artery calcification. Occluder device within left atrial appendage is noted. Note is made of small right and trace left pleural effusions. Associated bilateral lower lobe airspace opacity. Bilateral perihilar opacities are greater within the right lung. Interlobular septal thickening is noted. Lungs are suboptimally assessed given respiratory motion. A few small sclerotic lesions within the bilateral ribs are similar to CT of January 09, 2019. These remain indeterminate. The abdomen and pelvis will be reported separately. IMPRESSION: 1. Interlobular septal thickening consistent with pulmonary edema. Small right and trace left pleural effusions. 2. Extensive bilateral airspace opacities which favor alveolar edema although pneumonia could appear similar. 3. No change in several indeterminate sclerotic lesions within the bilateral ribs which be assessed on subsequent exams to ensure stability. 4. Mild mediastinal lymphadenopathy which may be reactive but can be assessed on subsequent exams. Electronically signed by: Manjeet Saucedo M.D. 03/11/2019 6:24 PM XR chest 1V portable CLINICAL HISTORY: Chest Pain dyspnea COMPARISON STUDY: 01/09/2019 FINDINGS: Increased cardiac size as well as pulmonary vasculature. Diaphragms are smooth. Costophrenic angles are sharp. Prominence of the right hilar region most likely secondary to rotational technical effects IMPRESSION: . Congestive heart failure. The above report was generated using voice recognition software. It may contain grammatical, syntax or spelling errors. Electronically signed by: Everette Jaquez M.D. 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 On arrival the patient is chronically ill appearing but NAD, AFVSS. On exam patient exhibits diminished breath sounds at the bases. EKG without evidence of acute ischemia. CXR with venous congestion. WBC 11.6. H/H10.6/31.2 slightly decreased from January. Platelets 128 also decreased from January. INR 2.9. Chemistry without acidosis. Cr. 1.76 within prior range of values. Troponin 0.022, wnl. BNP 3990 without prior values for comparison. CT of chest and abdomen/pelvis demonstrates bilateral opacities c/w PNA. Additional evidence of metastatic disease. Given likely immunocompromised from his Rucarparib will treat with broad spectrum abx at this time with Vancomycin, Cefepime, and Doxycycline. Patient with increased wob and so was placed on Bipap with good effect and improvement in sx. Case d/w Dr. Sanchez, [facility] [place] hospitalist, who will evaluate the patient for admission. Impression & Plan Respiratory failure, Pneumonia Critical Care Time Critical Care Time: Yes Total Critical Care Time: 35 I have personally spent greater than 35 minutes of critical care time in the direct management of this patient. This includes bedside care, interpretation of diagnostic studies, and testing, discussion with consultants, patient, and family members, and other required patient management activities. This 35 minutes is in excess of all separately billable procedures. Discharge Plan Visit Data *Final* Discharge Date/Time: 03/11/19 21:51 Chief Complaint: Cough Stated Complaint: COUGHING UP BLOOD ED Provider: Nicolás Smith Discharge Problem: Respiratory failure, Pneumonia Patient Disposition: Admitted As Inpatient Discharge Instructions Interventions: ED Discharge Assessment Last Done: 03/11/19 21:51 Discharge Problem: Respiratory failure Qualifiers: Chronicity: acute Respiratory failure complication: hypoxia Qualified Code(s): J96.01 - Acute respiratory failure with hypoxia Pneumonia Qualifiers: Pneumonia type: due to unspecified organism Laterality: bilateral Lung location: unspecified part of lung Qualified Code(s): J18.9 - Pneumonia, unspecified organism The scribe's documentation has been prepared under my direction and personally reviewed by me in its entirety. I confirm that the note above accurately reflects all work, treatment, procedures, and medical decision making performed by me.
[2019-03-11] MEDS ORDERED: LORATADINE 10 MG TAB PO PRN (22:28)
[2019-03-11] MEDS ORDERED: POLYETHYLENE (MIRALAX) 17 GM PACK PO PRN (22:28)
[2019-03-11] MEDS ORDERED: CYCLOBENZAPRINE HCL 5 MG TAB PO PRN (22:28)
[2019-03-11] MEDS ORDERED: ACETAMINOPHEN 325 MG TAB PO PRN (22:28)
[2019-03-11] MEDS ORDERED: ONDANSETRON INJ 2 MG/ML 2 ML VIAL IV PRN (22:28)
[2019-03-11] MEDS ORDERED: SODIUM CHLORIDE 0.9% 1000ML 1,000 ML IV SCH (22:28)
[2019-03-12] MEDS: METOPROLOL TARTRATE 50 MG TAB PO SCH ×3 (00:06→21:08)
[2019-03-12] MEDS: cefTRIAXone SODIUM 2,000 MG in DEXTROSE 5% 50 ML IV SCH (00:07)
[2019-03-12] MEDS ORDERED: METOPROLOL TARTRATE 1 MG/ML VIAL IV STA (05:47)
[2019-03-12 05:53] LABS: INR 3.2 (0.9-1.1); Prothrombin Time 29.8 Seconds (9.0-12.0)
[2019-03-12 06:06] LABS: BUN Creatinine Ratio 11.5 (10-20); Calcium 8.6 mg/dl (8.5-10.1); Creatinine Clr Calc Pharmacy 58.6 ml/min; Est GFR (African American) 56.3; Est GFR (Non-African American) 48.6; Magnesium 1.7 mg/dl (1.8-2.4); Potassium 3.1 mmol/L (3.5-5.1)
[2019-03-12 06:17] LABS: Basophils # (auto) 0.01 K/uL (0-0.2); Basophils % (auto) 0.1 %; Hemoglobin 10.7 g/dL (14.0-18.0); Immature Granulocytes # (auto) 0.04 K/uL (0.00-0.02); Immature Granulocytes % (auto) 0.4 %; Lymphocytes # (auto) 0.44 K/uL (1.2-3.4); Lymphocytes % (auto) 3.9 %; Mean Corpuscular Hgb Conc 34.5 g/dL (32-36); Mean Corpuscular Volume 92.3 fL (80-100); Monocytes # (auto) 1.05 K/uL (0.11-0.59); Monocytes % (auto) 9.2 %; Neutrophils # (auto) 9.83 K/uL (1.4-6.5); Neutrophils % (auto) 86.4 %; Platelet Count 123 K/uL (130-400); Platelet Estimate Decreased (Normal); RBC Morphology Unremarkable; RDW Coefficient of Variation 13.8 % (11.5-14.5); RDW Standard Deviation 46.8 fL (36.4-46.3); Red Blood Count 3.36 M/uL (4.7-6.1); White Blood Count 11.37 K/uL (4.8-10.8)
[2019-03-12] MEDS ORDERED: METOPROLOL TARTRATE 1 MG/ML VIAL IV PRN (07:27)
[2019-03-12] MEDS ORDERED: POTASSIUM CHLORIDE 20 MEQ TABCR PO STA (07:35)
[2019-03-12] MEDS: AMLODIPINE BESYLATE 5 MG TAB PO SCH (08:02)
[2019-03-12] MEDS: AZITHROMYCIN 250 MG TAB PO SCH (08:02)
[2019-03-12] MEDS: BuPROPion XL 150 MG TABCR PO SCH (08:03)
[2019-03-12] MEDS: CEROVITE ADV FORMULA TAB PO SCH (08:03)
[2019-03-12] MEDS: LOSARTAN POTASSIUM 50 MG TAB PO SCH (08:04)
[2019-03-12] MEDS: CHOLECALCIFEROL (VITAMIN D) 400 UNITS TABLET PO SCH (08:10)
[2019-03-12] MEDS ORDERED: POTASSIUM CHLORIDE 20 MEQ TABCR PO ONE (08:15)
[2019-03-12] MEDS: MAGNESIUM OXIDE 400 MG TAB PO SCH ×2 (08:53→14:30)
[2019-03-12] MEDS ORDERED: POTASSIUM CHLORIDE 10 MEQ TABCR PO SCH (09:00)
[2019-03-12] MEDS ORDERED: FUROSEMIDE 40 MG in SYRINGE 0 ML IV ONE (10:05)
--- NOTE | 2019-03-12 12:50 | Family Medicine Progress Note ---
Date of Service March 12, 2019 Assessment & Plan (1) Hemoptysis: 68-year-old male was admitted on 11 March 2018 for hemoptysis, shortness of breath, and pleural effusions. Hemoptysis Was not having hemoptysis today Likely secondary to pneumonia vs CHF exacerbated by warfarin with INR of 3.1 ct showing pulmonary edema, trace to small pleural effusions and no new lesions Also possible spontaneous hemorrhage from warfarin or new metastases in lung Less likely as no masses seen on chest CT. Holding warfarin Acute respiratory failure Likely sec to pneumonia/chf Was placed on bipap on admission. Now on NC O2. Pneumonia CT showing evidence of possilbe pneumonia Patient had fever, slightly elevated white count and hemoptysis Treating with Ceftriaxone and azithromycin Afebrile today CHF Patient with pulmonary edema and BNP of 3990 No known history of CHF Echo ordered Diuresing with 40 mg lasix IV Metastatic Prostate cancer s/p radical prostatectomy Progressing Patient aware and getting all oncology care at [place] Recently underwent biopsy of liver masses Patient on clinical trial with rucaparib Atrial flutter/Fibrillation Known condition, paroxysmal Watchman placed - December 2018, but thrombus found on device and started on warfarin last month Went into A fib with RVR this morning, giving three rounds of 5 mg IV metoprolol If that fails we will start diltiazem drip for rate control Holding warfarin for now. Likely resume once hemoptysis stable. RAQUEL Hydration and follow renal function. Anemia Patient with hemoglobin of 10.6 hemoptysis and history of GI bleed, Will continue to monitor Hypertension Patient with hypertension resistant to treatment Continue amiloride, amlodipine, hydralazine, losartan, metoprolol Constipation: As noted by patient x 5 days prior to admit. BM on l. Monitor. Miralax prn Code status: Full code. F/E/N: Regular Diet DVT prophy: Coumadin, SCDs. Disp: MedSurg with telemetry. (2) Shortness of breath: (3) Community acquired pneumonia: (4) Pleural effusion: (5) Anemia: (6) 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: (7) Elevated serum creatinine: (8) Atrial fibrillation: (9) Ascites: (10) Diverticulosis: (11) Hydronephrosis: (12) Cholelithiasis: (13) Constipation: (14) HTN (hypertension): (15) Hyperlipidemia: (16) GERD (gastroesophageal reflux disease): (17) MARTHA on CPAP: (18) Adjustment disorder: (19) Anxiety: (20) History of GI bleed: (21) Nephrolithiasis: (22) Osteoarthritis: Supervising Physician Co-Signing Physician Notes Resident Physician Supervision Note: I independently interviewed and examined the patient and verified the shetty history and physical, reviewed labs and image studies, discussed the case with the resident Dr. Box and agree with the findings and care plan. Subjective Mr. Suresh is resting comfortably this morning, he is breathing easier and now on nasal cannula at 2 L. He reports that he has been feeling weak and tired for about two months and has been having chills about the same time. Started to have a fever yesterday and noticed a bad cough for two days with hematemesis starting yesterday. On episode of vomiting without hematemesis. Patient aware of current status of his prostate cancer with metastasis to his liver and abdominal lymph nodes. He is fatigued, feels short of breath, does not endorse any chest pain at this time No abdominal pain, but does endorse nausea, 1 episode of vomiting without hematemesis, no focal weakness but generally fatigued and feels weak. Review of Systems Review of Systems: All systems reviewed & are unremarkable except as noted in HPI & below Physical Exam Constitutional: well developed and well nourished; no acute distress Eyes: PERRL, conjunctivae normal, anicteric sclerae Respiratory: + respiratory distress (mild respiratory distress with accessory muscle use ) and + cough Lung exam made difficult by patient's coughing invariably on deep inspiration. Crackles appreciated and decreased air entry bilaterally on suboptimal exam Cardiovascular: Rate/Rhythm: + tachycardic and + irregularly irregular; + abnormal rate Heart Sounds: normal S1 and normal S2; no click, no gallop, no murmur and no cardiac rub Extremities: + edema Gastrointestinal (Abdomen): Inspection/Auscultation: abdomen normal to inspection; abdomen not distended Percussion/Palpation: abdomen soft; abdomen nontender Skin: no rashes, warm and dry Neurologic: PERRL, EOMI, accommodation nl, no face palsy, no dysarthria Results & Data Vital Signs (Past 12 Hours) Vital Signs Temp Pulse Pulse Resp BP BP Pulse Ox 03/12/19 11:48 36.5 C 119 H 16 107/68 96 03/12/19 11:25 101 H 18 97 03/12/19 08:07 37.7 C H 84 20 165/80 H 97 03/12/19 06:03 135 H 164/70 H 03/12/19 05:20 80 154/72 H 03/12/19 04:00 37.1 C 83 20 179/96 H 96 PG Care Time/CCT Total # of Minutes Spent Total Time Spent with Patient: Total time spent is greater than 50% in coordination of care (as documented) at patient's floor/unit and/or counseling patient: Resident Activity Tracking Resident Involvement: Resident Care Provided Care Provided: Adult Hospital Medicine
[2019-03-12] MEDS: METOPROLOL TARTRATE 25 MG TAB PO SCH (15:56)
[2019-03-12] MEDS ORDERED: MELATONIN 2.5 MG PO SCH (21:00)
[2019-03-12] MEDS: EZETIMIBE 10 MG TABLET PO SCH (21:09)
[2019-03-12] MEDS: TERAZOSIN HCL 1 MG CAP PO SCH (21:09)
[2019-03-13] MEDS: cefTRIAXone SODIUM 2,000 MG in DEXTROSE 5% 50 ML IV SCH ×2 (00:28→23:50)
[2019-03-13] MEDS: METOPROLOL TARTRATE 1 MG/ML VIAL IV PRN ×2 (07:49→09:43)
[2019-03-13] MEDS: CEROVITE ADV FORMULA TAB PO SCH (08:15)
[2019-03-13] MEDS: AMLODIPINE BESYLATE 5 MG TAB PO SCH (08:15)
[2019-03-13] MEDS: LOSARTAN POTASSIUM 50 MG TAB PO SCH (08:15)
[2019-03-13] MEDS: METOPROLOL TARTRATE 50 MG TAB PO SCH ×2 (08:16→21:38)
[2019-03-13] MEDS: BuPROPion XL 150 MG TABCR PO SCH (08:16)
[2019-03-13] MEDS: CHOLECALCIFEROL (VITAMIN D) 400 UNITS TABLET PO SCH (08:16)
[2019-03-13] MEDS: AZITHROMYCIN 250 MG TAB PO SCH (08:17)
[2019-03-13 08:25] LABS: Basophils # (auto) 0.04 K/uL (0-0.2); Basophils % (auto) 0.6 %; Eosinophils % (auto) 2.8 %; Hematocrit (blood only) 33.7 % (42-52); Hemoglobin 11.6 g/dL (14.0-18.0); Immature Granulocytes # (auto) 0.01 K/uL (0.00-0.02); Immature Granulocytes % (auto) 0.1 %; Lymphocytes # (auto) 0.93 K/uL (1.2-3.4); Lymphocytes % (auto) 12.8 %; Mean Corpuscular Hgb Conc 34.4 g/dL (32-36); Mean Corpuscular Volume 91.3 fL (80-100); Mean Platelet Volume 11.9 fL (7.4-10.4); Monocytes # (auto) 0.58 K/uL (0.11-0.59); Neutrophils # (auto) 5.49 K/uL (1.4-6.5); Neutrophils % (auto) 75.7 %; Platelet Count 169 K/uL (130-400); RDW Standard Deviation 46.5 fL (36.4-46.3); Red Blood Count 3.69 M/uL (4.7-6.1); White Blood Count 7.25 K/uL (4.8-10.8)
[2019-03-13] MEDS ORDERED: FUROSEMIDE 40 MG in SYRINGE 0 ML IV ONE (08:30)
[2019-03-13 08:44] LABS: Albumin Level 3.3 gm/dl (3.4-5.0); BUN Creatinine Ratio 17.6 (10-20); Calcium 9.3 mg/dl (8.5-10.1); Creatinine Clr Calc Pharmacy 63.3 ml/min; Est GFR (African American) 64.7; Est GFR (Non-African American) 55.8; Potassium 3.3 mmol/L (3.5-5.1)
[2019-03-13 08:47] LABS: Albumin Globulin Ratio 0.8 (0.9-2); Bilirubin,Total 0.9 mg/dl (0.2-1); Globulin 3.9 gm/dl (2.5-4.0); Total Protein 7.2 gm/dl (6.4-8.2)
[2019-03-13] MEDS: POTASSIUM CHLORIDE PWD 20 MEQ PACK PO SCH ×2 (08:51→21:37)
[2019-03-13 09:11] LABS: INR 2.1 (0.9-1.1); Prothrombin Time 20.8 Seconds (9.0-12.0)
[2019-03-13] MEDS ORDERED: METOPROLOL TARTRATE 1 MG/ML VIAL IV STA (09:29)
[2019-03-13] MEDS: RUCAPARIB CAMSYLATE 300 MG PO SCH ×2 (09:45→20:03)
[2019-03-13] MEDS ORDERED: dilTIAZem HCl 5 MG/ML 5 ML VIAL IV STA (11:26)
[2019-03-13] MEDS: dilTIAZem HCl 125 MG in DEXTROSE 5% 100 ML IV SCH ×2 (12:46→23:50)
[2019-03-13] MEDS ORDERED: POTASSIUM CHLORIDE 20 MEQ TABCR PO STA ×2 (14:15→17:43)
--- NOTE | 2019-03-13 14:45 | Family Medicine Progress Note ---
Date of Service March 13, 2019 Assessment & Plan (1) Respiratory failure: 68-year-old male was admitted on 11 March 2018 for hemoptysis, shortness of breath, and pleural effusions. Hemoptysis One episode of hemoptysis today on awakening Likely secondary to pneumonia vs CHF exacerbated by warfarin with INR of 3.1 ct showing pulmonary edema, trace to small pleural effusions and no new lesions Also possible spontaneous hemorrhage from warfarin or new metastases in lung Less likely as no masses seen on chest CT. Will restart warfarin today Acute respiratory failure with hypoxia Likely sec to pneumonia/chf Was placed on bipap on admission. Now on NC 4L O2. Pneumonia CT showing evidence of possible pneumonia Patient had fever, slightly elevated white count and hemoptysis Treating with Ceftriaxone and azithromycin Afebrile today Acute diastolic CHF Patient with pulmonary edema and BNP of 3990 No known history of CHF Echo ordered Gave patient 40 mg Lasix yesterday only about 100 ml down since admission Will give additional 40 mg lasix Metastatic Prostate cancer s/p radical prostatectomy Progressing Patient aware and getting all oncology care at [place] Recently underwent biopsy of liver masses Patient on clinical trial with rucaparib started 3 weeks ago Atrial flutter/Fibrillation Known condition, paroxysmal Watchman placed - December 2018, but thrombus found on device and started on warfarin last month Went into A fib with RVR this morning, giving three rounds of 5 mg IV metoprolol Patient did not respond to IV metoprolol pushes, started cardizem drip for rate control Will monitor blood pressure closely, can hold some of home meds as he is currently on 4 antihypertensives Moving patient to PCU Consulted [facility] RAQUEL IMproving Anemia Patient with hemoglobin of 11.6 hemoptysis and history of GI bleed, Will continue to monitor Hypertension Patient with hypertension resistant to treatment Continuing with metoprolol holding others based on symptomatic hypotension that developed this afternoon Will continue to monitor Code status: Full code. F/E/N: Regular Diet DVT prophy: Coumadin, SCDs. Disp: MedSurg with telemetry. (2) History of GI bleed: (3) Anxiety: (4) Diverticulosis: (5) Hemoptysis: (6) Pneumonia: (7) Acid reflux: (8) Atrial fibrillation: (9) Hyperlipidemia: Supervising Physician Co-Signing Physician Notes Resident Physician Supervision Note: I independently interviewed and examined the patient and verified the shetty history and physical, reviewed labs and image studies, discussed the case with the resident Dr. Box and agree with the findings and care plan. Time spent in discharge 35 min Subjective Matthew Suresh is resting in bed on BiPAP. Patient tells me he does not feel acutely short of breath anymore and that he feels fatigued like he has chronically. He clarified that he has been feeling fatigued for over a year and that he has been experiencing chills for several months, but his fever began in the last few days. He tells me he has had renal artery ultrasound in the past to evaluate his HTN. Patient reports some increased mucus drainage from his eyes which has been drying and crusting. Patient endorses one event of hemoptysis when he first woke up, small amount of dark red sputum. Review of Systems Review of Systems: All systems reviewed & are unremarkable except as noted in HPI & below Physical Exam Constitutional: well developed, well nourished, cooperative and comfortable; no acute distress Eyes: PERRL, conjunctivae normal, anicteric sclerae Respiratory: Breath sounds coarse, decreased globally worst at lung bases. fine crackles audible throughout. Symmetric chest expansion. Cardiovascular: Rate/Rhythm: + tachycardic and + irregularly irregular; + abnormal rate and + abnormal rhythm Heart Sounds: normal S1 and normal S2; no click, no gallop, no murmur and no cardiac rub Extremities: + pedal edema Gastrointestinal (Abdomen): normal bowel sounds, soft, nontender, no hepatosplenomegaly Results & Data Vital Signs (Past 12 Hours) Vital Signs Temp Pulse Pulse Resp BP BP BP 03/13/19 13:28 94 H 118/69 03/13/19 13:21 109 H 03/13/19 13:13 110 H 104/64 03/13/19 13:00 145 H 103/67 03/13/19 12:51 144 H 95/63 L 03/13/19 12:50 36.9 C 145 H 20 93/67 L 03/13/19 12:42 36.3 C L 142 H 18 101/68 03/13/19 10:51 16 03/13/19 09:43 142 H 109/74 03/13/19 07:49 146 H 116/78 03/13/19 07:01 36.9 C 101 H 19 127/81 03/13/19 03:49 37.0 C 107 H 20 125/81 Pulse Ox 03/13/19 13:28 03/13/19 13:21 03/13/19 13:13 03/13/19 13:00 03/13/19 12:51 03/13/19 12:50 99 03/13/19 12:42 97 03/13/19 10:51 97 03/13/19 09:43 03/13/19 07:49 03/13/19 07:01 97 03/13/19 03:49 98 PG Care Time/CCT Total # of Minutes Spent Total Time Spent with Patient: Total time spent is greater than 50% in coordination of care (as documented) at patient's floor/unit and/or counseling patient: (1) Respiratory failure Chronicity: acute Respiratory failure complication: hypoxia Qualified Code(s): J96.01 - Acute respiratory failure with hypoxia (2) Pneumonia Laterality: bilateral Lung location: unspecified part of lung Pneumonia type: due to unspecified organism Qualified Code(s): J18.9 - Pneumonia, unspecified organism
[2019-03-13] MEDS ORDERED: WARFARIN SOD 5 MG TAB PO SCH (16:15)
[2019-03-13] MEDS: METOPROLOL TARTRATE 25 MG TAB PO SCH (16:26)
[2019-03-13] MEDS ORDERED: WARFARIN SOD 2.5 MG TAB PO ONE (17:30)
[2019-03-13] MEDS: EZETIMIBE 10 MG TABLET PO SCH (21:37)
[2019-03-13] MEDS: MAGNESIUM OXIDE 400 MG TAB PO SCH (21:38)
[2019-03-13] MEDS: TERAZOSIN HCL 1 MG CAP PO SCH (21:39)
[2019-03-14] MEDS: CEROVITE ADV FORMULA TAB PO SCH (08:03)
[2019-03-14] MEDS: METOPROLOL TARTRATE 50 MG TAB PO SCH (08:03)
[2019-03-14] MEDS: AZITHROMYCIN 250 MG TAB PO SCH (08:03)
[2019-03-14] MEDS: BuPROPion XL 150 MG TABCR PO SCH (08:03)
[2019-03-14] MEDS: MAGNESIUM OXIDE 400 MG TAB PO SCH (08:03)
[2019-03-14] MEDS: POTASSIUM CHLORIDE PWD 20 MEQ PACK PO SCH (08:04)
[2019-03-14] MEDS: CHOLECALCIFEROL (VITAMIN D) 400 UNITS TABLET PO SCH (08:04)
[2019-03-14] MEDS: RUCAPARIB CAMSYLATE 300 MG PO SCH (08:05)
[2019-03-14 08:15] LABS: Prothrombin Time 19.3 Seconds (9.0-12.0)
[2019-03-14 08:51] LABS: BUN Creatinine Ratio 16.2 (10-20); Calcium 9.1 mg/dl (8.5-10.1); Creatinine Clr Calc Pharmacy 59.7 ml/min; Est GFR (African American) 59.7; Est GFR (Non-African American) 51.5
[2019-03-14] MEDS ORDERED: POTASSIUM CHLORIDE PWD 20 MEQ PACK PO SCH (09:00)
[2019-03-14] MEDS ORDERED: cefUROXime axetil 500 MG TAB PO SCH (09:45)
--- NOTE | 2019-03-14 14:47 | Cardiology Progress Note ---
Date of Service March 14, 2019 Subjective Pt discharged before he was seen by me. Telemetry reviewed, pt spontaneously converted from aflutter to sinus rhythm. Results & Data Vital Signs (Past 12 Hours) Vital Signs Temp Pulse Resp BP BP Pulse Ox 03/14/19 10:12 36.6 C 62 18 130/70 125/75 95 03/14/19 07:39 36.6 C 62 18 130/70 95 03/14/19 03:32 36.5 C 81 18 125/75 97
--- NOTE | 2019-03-14 15:06 | Discharge Summary ---
Date of Service March 14, 2019 Admission HPI Per Admitting Provider 68-year-old male says that just prior to arrival in the admission he noted a couple of coughs that were productive of a bright red bloody-appearing streaks of sputum. Says his cough started earlier today. Has felt warm throughout today. He did note a single episode of non-bloody emesis earlier this morning with some slight stomach upset, though this was about 30 minutes after taking his chemotherapy for his metastatic prostate cancer. He notes some shortness of breath today but states is actually been more like for the past few months. Apparently this is not been previously evaluated. He denies associated chest pain. Says that some swelling in his legs comes and goes. Also states that he has been constipated for about 5 days. He contacted his oncologist about this, was recommended to start MiraLAX, and had a subsequent normal sized bowel movement today. No other acute patient concerns. - He says all of his oncology care is via [facility]. No local [place] providers. - His primary care provider is Dr. Ness. His cardiologists are Dr. Martinez and Amarjit. - Past medical history includes metastatic prostate cancer, atrial flutter with RVR, diverticulosis, nephrolithiasis, hypertension, hyperlipidemia, GERD, MARTHA, adjustment disorder, anxiety, GI bleed, osteoarthritis. - Past surgical history includes radical prostatectomy, tonsillectomy, implantation of artificial urinary sphincter, cataract surgery - Social history includes never smoking. Rare alcohol use. Lives at home with . Admission Exam Per Admitting Provider GENERAL: Awake, alert, well-appearing, in no acute distress. HENT: Normocephalic, atraumatic. Very dry oropharynx but no blood seen in posterior pharynx or anterior nasal mucosa. EYES: Normal conjunctiva. Sclera non-icteric. NECK: Inspection normal. Non-tender. Supple and full ROM. CARDIAC: +S1S2 RRR, no murmurs. RESPIRATORY: Decreased breath sounds throughout. Some rales at the bilateral bases. Normal respiratory effort. Conversational in full sentences on nasal cannula oxygen, though some mild work of breathing. This improves on BiPAP. GI: +BS, soft, but appears mildly distended. No tenderness to palpation. No rebound or guarding. EXTREMITIES: Moving all extremities naturally and easily. Trace edema in bilateral extremities. No calf tenderness. NEURO: No gross neuro deficits. Principal Diagnosis Pneumonia, Community Acquired Atrial Flutter Discharge Exam Constitutional: well developed, well nourished, cooperative and comfortable; no acute distress Eyes: PERRL, conjunctivae normal, anicteric sclerae Respiratory: Breath sounds coarse, decreased globally worst at lung bases. fine crackles audible throughout. Symmetric chest expansion. Cardiovascular: Rate/Rhythm: regular rate; Heart Sounds: normal S1 and normal S2; no click, no gallop, no murmur and no cardiac rub Extremities: + pedal edema (Improved) Gastrointestinal (Abdomen): normal bowel sounds, soft, nontender, no hepatosplenomegaly Discharge Data Allergies Allergy/AdvReac Type Severity Reaction Status Date / Time atorvastatin Allergy Unknown "FUZZY Verified 03/11/19 16:35 THOUGHT PROCESS AND DEPRESSION LIKE SYMPTOMS" lisinopril Allergy Unknown SWELLING Verified 03/11/19 16:35 IN ANKLES Nnsywwu-Pec-Kjx Reductase Allergy Unknown Verified 03/11/19 16:35 Inhibitor Consultations 03/11/19 19:56 ED Decision to Admit Stat 03/13/19 13:12 Consult Cardiology Routine Ordered Studies 03/11/19 16:18 CT abd pelvis wo con Stat CT chest wo con Stat Hospital Course (1) Respiratory failure: 68-year-old male was admitted on 11 March 2018 for hemoptysis, shortness of breath, and pleural effusions. Hemoptysis One episode of hemoptysis today on awakening Likely secondary to pneumonia vs CHF exacerbated by warfarin with INR of 3.1 ct showing pulmonary edema, trace to small pleural effusions and no new lesions Concern for new metastases in lung-- Less likely as no masses seen on chest CT. Will need to further work up if patient continues to have hemoptysis after being treated for pneumonia Supratherapeutic INR Supertherapeutic on admission >3 Restarted Warfarin day before discharge at 2.5 mg/day Will need to monitor and adjust dose accordingly as new medication for prostate cancer affects INR Acute respiratory failure Likely secondary to diastolic dysfunction Was placed on bipap on admission. Able to be weaned to room air by day of discharge after diuresis with forty mg of lasix IV once a day for [address] showing evidence of possible pneumonia Patient had fever, slightly elevated white count and hemoptysis Treated with Ceftriaxone and azithromycin Afebrile Transitioned to cefuroxime 500 mg BID for final three doses Acute Diastolic CHF Patient with pulmonary edema and BNP of 3990 No known history of CHF Echo ordered showing only mild LVH Gave patient 40 mg Lasix once a day for 2 days - diuresed well. Metastatic Prostate cancer s/p radical prostatectomy Progressing Patient aware and getting all oncology care at [place] Recently underwent biopsy of liver masses Patient on clinical trial with rucaparib started 3 weeks ago Atrial flutter/Fibrillation Known condition, paroxysmal Watchman placed - December 2018, but thrombus found on device and started on warfarin last month Went into A fib with RVR 7/3, gave three rounds of 5 mg IV metoprolol Patient did not respond to IV metoprolol pushes, started cardizem drip for rate control Corrected patient's hypokalemia and patient returned to sinus rhythm Cardizem drip was stopped and patient's medications were restarted with exception of hydralazine. Reassess at follow up Monitor Patient's Potassium in outpatient setting, may need to supplement Anemia Patient with hemoglobin of 11.6 likely anemia of chronic disease as he seems at or just above his baseline Continue to monitor Hypertension Patient with hypertension resistant to treatment Continuing with metoprolol holding others based on symptomatic hypotension that developed this afternoon Will continue to monitor Total Time Total Time Spent Total Time Spent (In Minutes): 45 Discharge Plan Discharge Items Patient Disposition: Home - Self-Care Reason For Visit: HEMOPTYSIS,SOB,PULMONARY EDEMA Discharge Diagnosis: Pneumonia Condition: Good Discharge Goals: Improve disease control and Therapeutic intervention Activity: Resume your previous activity Non-emergency contact: Primary Care Provider Call non-emergency contact if: you have any medication questions, your symptoms worsen and your temperature is above 100.5 Follow-up/Referrals: Pro,Bruce Mcneil MD [Primary Care Provider] - Diet: Heart Healthy Add Provider Instructions: Mr. Jerry it was our pleasure to evaluate and treat you for your fatigue, shortness of breath and hemoptysis. We believe that you have pneumonia as well as pulmonary edema (fluid on the lungs). With three days of antibiotics and diu resis (drugs that help get water off) you have improved markedly. We will be sending you home with one antibiotic to take as listed below: Cefuroxime 500 mg to be taken twice a day for next two days. You will receive one dose here in the hospital and can take the subsequent three doses at home (One tonight, one tomorrow morning and one tomorrow evening). We will be cutting your warfarin dose to 2.5 mg per day. Make sure to follow up as scheduled with coumadin clinic. It would not be abnormal to have some hemoptysis (bloody sputum) for the next couple of days as you recover from your pneumonia but if it continues to persist please inform your primary care provider. We also recommend that you hold off on taking your hydralazine until following up with your primary care physician as your blood pressure was low enough for us to hold it here in hospital. Prescriptions: New cefuroxime axetil 500 mg Tablet 500 mg PO BID 2 Days Qty: 3 RF: 0 Continued Rubraca 300 mg tablet 600 mg PO BID Qty: 180 RF: 3 bupropion HCl 150 mg tablet extended release 24 hr 150 mg PO QAM Qty: 30 RF: 0 potassium chloride 10 mEq Capsule, Extended Release 20 meq PO QAM RF: 0 amiloride 5 mg Tablet 5 mg PO QAM RF: 0 amlodipine 10 mg Tablet 10 mg PO QAM RF: 0 metoprolol tartrate 50 mg Tablet 50 mg PO AMPM RF: 0 ranitidine HCl 150 mg Capsule 150 mg PO QPM RF: 0 losartan 100 mg Tablet 100 mg PO QAM RF: 0 Centrum Silver 0.4-300-250 mg-mcg-mcg Tablet 1 tab PO DAILY RF: 0 metoprolol tartrate 50 mg tablet 25 mg PO . DAILY @ MIDDAY RF: 0 amoxicillin 500 mg capsule 4 cap PO UD PRN (Reason: 1 hour prior to dental appt) RF: 0 terazosin 2 mg Capsule 4 mg PO HS RF: 0 loratadine 10 mg Tablet 10 mg PO DAILY PRN (Reason: allergies) RF: 0 cyclobenzaprine 5 mg Tablet 5 - 10 mg PO HS PRN (Reason: Muscle Spasm) RF: 0 cholecalciferol (vitamin D3) [Vitamin D3] 400 unit Tablet,Chewable 400 unit PO DAILY RF: 0 melatonin 2.5 mg Tablet,Chewable 2.5 mg PO HS RF: 0 ezetimibe 10 mg tablet 10 mg PO QPM RF: 0 Changed warfarin 5 mg tablet 2.5 mg PO .DAILY UD Qty: 0 RF: 0 Discontinued hydralazine 50 mg Tablet 75 mg PO TID RF: 0 Stand-Alone Forms: [facility] Discharge Orders: Discharge Order (Routine); Ordered 03/14/19 Ordered By: Ranjan Box Admission Data Admit Date/Time: 03/11/19 21:12 Attending Provider: Coty Pina Admit Provider: Aston Prado Primary Care Provider: Bruce Ness Other Providers: Yanira Sanchez ; Wilder Martinez Service: Telemetry Medical Other Interventions: Discharge Summary Assessment (RN) Last Done: 03/14/19 10:12 DC Date/Time DO NOT enter until pt leaves facility: 03/14/19 11:09 Supervising Physician Co-Signing Physician Notes Resident Physician Supervision Note: I independently interviewed and examined the patient and verified the shetty history and physical, reviewed labs and image studies, discussed the case with the resident Dr. Box and agree with the findings and care plan. Time spent in discharge 40 min Resident Activity Tracking Resident Involvement: Resident Care Provided Care Provided: Adult Hospital Medicine
== END 2019-03-14 11:09 | disposition home or self-care (01) | DRG 193 ==
LOC: ED 15:01 → SUATTDRO 21:12 → 2N 21:12 → 2S 03-13 13:03

== ENCOUNTER 2019-03-15 14:57 | Inpatient (IN) ==
[2019-03-15 16:02] LABS: Basophils # (auto) 0.06 K/uL (0-0.2); Basophils % (auto) 0.9 %; Eosinophils # (auto) 0.36 K/uL (0-0.5); Eosinophils % (auto) 5.4 %; Hemoglobin 11.7 g/dL (14.0-18.0); Immature Granulocytes # (auto) 0.03 K/uL (0.00-0.02); Immature Granulocytes % (auto) 0.5 %; Lymphocytes # (auto) 0.91 K/uL (1.2-3.4); Lymphocytes % (auto) 13.7 %; Mean Corpuscular Hgb Conc 33.4 g/dL (32-36); Mean Corpuscular Volume 92.6 fL (80-100); Mean Platelet Volume 11.3 fL (7.4-10.4); Monocytes # (auto) 0.42 K/uL (0.11-0.59); Monocytes % (auto) 6.3 %; Neutrophils # (auto) 4.85 K/uL (1.4-6.5); Neutrophils % (auto) 73.2 %; Platelet Count 231 K/uL (130-400); RDW Standard Deviation 47.1 fL (36.4-46.3); Red Blood Count 3.78 M/uL (4.7-6.1); White Blood Count 6.63 K/uL (4.8-10.8)
[2019-03-15 16:12] LABS: INR 2.2 (0.9-1.1); Partial Thromboplastin Ratio 1.2; Partial Thromboplastin Time 32.9 Seconds (21.0-31.0); Prothrombin Time 20.9 Seconds (9.0-12.0)
--- NOTE | 2019-03-15 16:18 | XRay Report ---
XR chest 1V portable HISTORY: Shortness of breath. COMPARISON: Chest 03/11/2019. FINDINGS: Improvement in the interstitial thickening suggestive of resolving pulmonary edema. No pneu mothorax. Trace right pleural effusion persists. The heart remains mildly enlarged. No new focal lung consolidation. IMPRESSION: Near complete resolution of the pulmonary edema. Trace right pleural effusion persists. Electronically signed by: Daniel Guevara M.D. 03/15/2019 4:16 PM
[2019-03-15 16:29] LABS: Alanine Aminotransferase 131 U/L (12-78); Albumin Globulin Ratio 0.9 (0.9-2); Albumin Level 3.6 gm/dl (3.4-5.0); Alkaline Phosphatase 111 U/L (45-117); BUN Creatinine Ratio 13.8 (10-20); Bilirubin,Total 0.5 mg/dl (0.2-1); Blood Urea Nitrogen 21 mg/dl (7-18); Calcium 9.7 mg/dl (8.5-10.1); Carbon Dioxide 27 mmol/L (21-32); Chloride 108 mmol/L (98-107); Creatinine Clr Calc Pharmacy 55.3 ml/min; Est GFR (African American) 54.6; Est GFR (Non-African American) 47.1; Globulin 4.2 gm/dl (2.5-4.0); Glucose 127 mg/dl (70-99); Total Protein 7.8 gm/dl (6.4-8.2); Troponin I < 0.015 ng/ml (0-0.045)
[2019-03-15 16:40] LABS: Sodium 144 mmol/L (136-145)
[2019-03-15 16:56] LABS: Aspartate Aminotransferase 83 U/L (15-37)
[2019-03-15 16:58] LABS: Potassium 4.2 mmol/L (3.5-5.1)
[2019-03-15] MEDS ORDERED: dilTIAZem HCl 5 MG/ML 5 ML VIAL IV STA (17:26)
[2019-03-15] MEDS: dilTIAZem HCl 125 MG in DEXTROSE 5% 100 ML IV SCH ×2 (17:49→22:22)
[2019-03-15] MEDS ORDERED: METOPROLOL TARTRATE 50 MG TAB ONE (17:50)
--- NOTE | 2019-03-15 20:01 | Consultation Report ---
DATE OF ADMISSION: 03/15/2019 CARDIOLOGY CONSULTATION CONSULTATION REQUESTED BY: Migdalia Byrd DO REASON FOR CONSULTATION: Atrial flutter with rapid ventricular response. HISTORY OF PRESENT ILLNESS: This patient is a very pleasant 68-year-old gentleman who normally follows with Dr. Martinez and Dr. Ocasio of our cardiology practice. He initially presented to [facility] on 03/11/2019 with complaints of shortness of breath and hemoptysis. He was treated for community-acquired pneumonia and admitted to telemetry. He was also thought to be volume overloaded and given I.V. Lasix and had significant hypokalemia. Cardiology was consulted after he went into atrial flutter with rapid ventricular response; however, the patient spontaneously converted to normal sinus rhythm on his own and he was discharged to home before Cardiology could see the patient. He states he went home feeling relatively well, woke up this morning and felt short of breath and his Fitbit was reading heart rate over 140s. He contacted our office and was directed to the Emergency Room. Upon arrival, he was found to be in atrial flutter with 2:1 conduction and Cardiology was consulted. Currently, the patient states he is feeling well at rest, but knows if he gets up and takes only few steps, he will feel short of breath. He has also been having some lightheadedness and dizziness today, but denies any chest pain or syncope. PAST SURGICAL HISTORY: 1. Watchman left atrial appendage closure device with followup signs of thrombus on the device. 2. Multiple colonoscopies. 3. Cystoscopies. 4. Lithotripsy. 5. Radical prostatectomy. 6. Tonsillectomy. MEDICAL ILLNESSES: 1. Paroxysmal atrial flutter. 2. Paroxysmal atrial fibrillation with amaurosis fugax/stroke, initially on Eliquis anticoagulation. 3. Thrombus of the Watchman device, on chronic Coumadin. 4. Paroxysmal atrial flutter episode occurring in 2014. 5. Metastatic prostate cancer, status post prostatectomy with recurrence and radiation therapy. 6. Gastroesophageal reflux disease. 7. History of gastrointestinal bleed, resolved without a source found. 8. Longstanding labile and difficult to treat hypertension. 9. Hypertensive heart disease. 10. Chronic obstructive sleep apnea, on continuous positive airway pressure therapy. 11. Anemia. FAMILY HISTORY: Noncontributory. SOCIAL HISTORY: Denies any alcohol, tobacco or recreational drug use. He is and lives at home with his . REVIEW OF SYSTEMS: As per HPI, all other review of systems reviewed and negative at this time. ALLERGIES: 1. ATORVASTATIN. 2. LISINOPRIL. MEDICATIONS: As an outpatient, 1. Amlodipine 10 mg daily. 2. Hydralazine discontinued on discharge on 03/14/2019. 3. Metoprolol 50 mg b.i.d. 4. Losartan 100 mg daily. 5. Terazosin 4 mg at bedtime. 6. Ranitidine. 7. Zetia. 8. Multivitamins. 9. Wellbutrin. 10. Amiloride. PHYSICAL EXAMINATION: VITAL SIGNS: Temperature 36.4, pulse 140, respiratory rate 12 and blood pressure 136/92. GENERAL: Awake, alert and oriented x3, in no acute distress. HEENT: Normocephalic and atraumatic. Pupils are equal, round and reactive to light and accommodation. Extraocular muscles intact. Anicteric sclerae. Moist mucous membranes. NECK: No JVD. No bruit. CARDIOVASCULAR: Regular, but fast. Unable to appreciate murmurs, rubs or gallops. PULMONARY: Clear to auscultation bilaterally. No rales, rhonchi or wheezing. ABDOMEN: Bowel sounds x4. Soft. No rebound, guarding or tenderness. No organomegaly. EXTREMITIES: No clubbing, cyanosis or edema. A +2 pedal pulses bilaterally. SKIN: Warm and dry. TEST RESULTS: A 12-lead electrocardiogram performed in the Emergency Department independently reviewed at this time shows atrial flutter with 2:1 conduction and left anterior fascicular block. LABORATORY STUDIES OF SIGNIFICANCE: Sodium 144, potassium 4.2, BUN 21 and creatinine 1.5. INR 2.2. A 2-D echocardiogram performed on 03/12/2019 was read as normal left ventricular chamber size with mild concentric left ventricular hypertrophy, hyperdynamic left ventricular systolic function, ejection fraction greater than 70%, no segmental left ventricular wall motion abnormalities are noted, grade 1 diastolic dysfunction and no significant valvular pathology. IMPRESSION: 1. Recurrent atrial flutter, symptomatic with rapid ventricular response. 2. Hypokalemia, resolved. 3. Prolonged QT interval with QTC of 488 milliseconds. 4. History of paroxysmal atrial fibrillation/flutter. 5. History of Watchman insertion with superimposed thrombus attached to the device. RECOMMENDATIONS: It was my pleasure to see the patient in consultation today. From a cardiac standpoint, I believe the most prudent course of action at this point will be to start the patient on Cardizem bolus and drip for rate control and hopeful spontaneous cardioversion that was successful yesterday. Unfortunately, given his QTC, I am unable to start any antiarrhythmics at this time for concern of proarrhythmic effects. I am hopeful that with further rate control in the setting of corrected potassium levels, he will return to sinus rhythm and once he returns to normal sinus rhythm, his Cardizem should be changed to p.o. We will continue his outpatient metoprolol dosing as well as his Coumadin and ultimately we will require electrophysiology follow up with Dr. Ocasio. He does have a history of labile hypertension. His hydralazine was recently discontinued and I would restart it should he start to become hypertensive during this stay. We will continue to follow the patient with you while he is admitted. TAZ
--- NOTE | 2019-03-15 20:17 | History & Physical Report ---
Date of Service March 15, 2019 Assessment & Plan (1) Atrial flutter: Mr. Suresh is a very pleasant 68 year old male with a past medical history significant for metastatic prostate cancer, atrial flutter with RVR, diverticulosis, hypertension, hyperlipidemia, GERD, MARTHA, anxiety, GI bleed, o steoarthritis who presented to the emergency department due to palpitations and shortness of breath that began at 7AM on the day of his admission. Upon presentation to [facility], he was found to be in atrial flutter. He was seen by Dr. Duarte, cardiology, who started him on a diltiazem drip. Atrial flutter -Admit to telemetry -patient normally follows with Dr. Martinez -Patient has a history of paroxysmal atrial fibrillation/flutter -s/p Watchman procedure in December 2018 - patient is on Coumadin as he has a small clot on his device -Normally on metoprolol 3 times daily at home, will continue this -Started on diltiazem drip, with good response -Cardiology following, thank you for recommendations -> Unable to start antiarrhythmics given QTC -> Will convert Cardizem to p.o. tomorrow, and patient will ultimately require electrophysiology follow-up with his regular liquor tester (who had done his prior procedure) -Already anticoagulated with warfarin, INR therapeutic at 2.2 Hypertension -Patient normally takes amiloride, amlodipine, hydralazine, losartan and metoprolol at home -Given patient is on diltiazem drip, will hold home amiloride, amlodipine, hydralazine and losartan -Can resume medications if patient becomes hypertensive, however adjustments will have to be made to his regimen prior to discharge as he will be placed on p.o. Cardizem -note that hydralazine is not listed on the patient's home medications, as it was held on his previous discharge, to be resumed in the outpatient setting Community acquired pneumonia -resolved -Completed course of antibiotics -afebrile, no cough, no white cell count, no oxygen demand -Hemoptysis resolved -Chest x-ray looks improved from prior admission Metastatic prostate cancer -S/P radical prostatectomy -Follows with [facility], on rucaparib Diastolic CHF -Echo on 03/12 showed normal left ventricular systolic function, however patient has grade 1 diastolic dysfunction -Patient appears euvolemic at this time Anemia -Stable, hemoglobin 11.7 on admit Elevated creatinine -Creatinine 1.52 on admit, no noted history of renal disease -Hold home losartan, avoid nephrotoxic agents -Recheck creatinine in the morning Transaminitis -Patient with AST of 83 and ALT of 131, new from prior -Patient with known metastatic disease to liver, with small amount of ascites -Follow LFTs Loose stools -Could be secondary to antibiotics, no concern for C. difficile at this time given it is not overt diarrhea -Continue to monitor Hyperlipidemia -Continue daily ezetimibe GERD -Continue daily Zantac MARTHA -Continue nightly CPAP Anxiety -Continue home bupropion CODE STATUS: Full code Disposition: Admit to telemetry DVT prophylaxis: Coumadin F/E/N: Regular diet, no electrolyte abnormalities noted. (2) Anxiety: (3) Elevated serum creatinine: (4) 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: (5) Arthritis: (6) HTN (hypertension): (7) Dyslipidemia: (8) Osteoarthritis: (9) History of GI bleed: (10) Anemia: (11) Community acquired pneumonia: History of Present Illness Primary Care Provider: Bruce Ness MD Mr. Suresh is a very pleasant 68 year old male with a past medical history significant for metastatic prostate cancer, atrial flutter with RVR, diverticulosis, hypertension, hyperlipidemia, GERD, MARTHA, anxiety, GI bleed, osteoarthritis who presented to the emergency department due to palpitations and shortness of breath that began at 7AM on the day of his admission. Of note, the patient was recently discharged to [facility] on 03/14 after being treated for pulmonary edema and pneumonia. He states that he felt fantastic after he was discharged, however woke up at 7 AM feeling fatigued, lightheaded, with palpitations and shortness of breath. He states that he checked his Fitbit, which showed that his heart rate was in the 140s. He states he normally runs in the 60s, and that this is a big change for him. He denies chest pain, dizziness, fever, chills. He denies any further episodes of hemoptysis, which is what prompted him to present to the emergency department on his first admission. With regards to his prior hospital admission, he was admitted from 03/11 to 03/14 for hemoptysis and hypoxia. He was treated for pneumonia as well as CHF. He was diuresed with IV Lasix, and his pneumonia was treated with ceftriaxone and azithromycin - transitioned to cefuroxime on discharge. He was able to be weaned off of oxygen prior to his discharge. His admission was also notable for atrial flutter, that did not respond to IV metoprolol. He was started on IV diltiazem for rate control, and eventually spontaneously converted to normal sinus rhythm. He was discharged on his regular dose of metoprolol. With his history of atrial flutter, he had a watchman procedure done in December 2018. He is still on Coumadin as he apparently has a small clot on his device. Regarding his metastatic prostate cancer, he had a radical prostatectomy, and follows with oncology at [facility]. He is on rucaparib as part of a clinical trial. PMHx: Metastatic prostate cancer, atrial flutter, hypertension, hyperlipidemia, GERD, MARTHA, anxiety, prior GI bleed (2012), osteoarthritis PSHx: Radical prostatectomy, implantation of artificial urinary sphincter, cataract surgery SHx: Lives at home with his . Has never smoked. Rare alcohol use. No history of recreational drug abuse. Allergies Allergy/AdvReac Type Severity Reaction Status Date / Time atorvastatin Allergy Unknown "FUZZY Verified 03/15/19 16:25 THOUGHT PROCESS AND DEPRESSION LIKE SYMPTOMS" lisinopril Allergy Unknown SWELLING Verified 03/15/19 16:25 IN ANKLES [id number] Reductase Allergy Unknown Verified 03/15/19 16:25 Inhibitor Home Medications Home Medications Medication Instructions Recorded Confirmed Type Centrum Silver 1 tab PO DAILY 07/04/18 03/15/19 History amiloride 5 mg PO QAM 07/04/18 03/15/19 History amlodipine 10 mg PO QAM 07/04/18 03/15/19 History losartan 100 mg PO QAM 07/04/18 03/15/19 History metoprolol tartrate 50 mg PO AMPM 07/04/18 03/15/19 History potassium chloride 20 meq PO QAM 07/04/18 03/15/19 History ranitidine HCl 150 mg PO QPM 07/04/18 03/15/19 History amoxicillin 4 cap PO UD PRN 01/09/19 03/15/19 History cholecalciferol (vitamin D3) 400 unit PO DAILY 01/09/19 03/15/19 History [Vitamin D3] loratadine 10 mg PO DAILY PRN 01/09/19 03/15/19 History melatonin 2.5 mg PO HS 01/09/19 03/15/19 History metoprolol tartrate 25 mg PO . DAILY @ MIDDAY 01/09/19 03/15/19 History terazosin 4 mg PO HS 01/09/19 03/15/19 History bupropion HCl XL 150 mg 24 hr 150 mg PO QAM #30 tab 03/05/19 03/15/19 Rx tablet, extended release rucaparib 300 mg tablet 600 mg PO BID #180 tab 03/05/19 03/15/19 Rx ezetimibe 10 mg PO QPM 03/11/19 03/15/19 History warfarin 2.5 mg PO QAM 03/15/19 03/15/19 History Past Med/Surg History Medical History Acid reflux (Acute) Adjustment disorder (Acute) Arthritis (Acute) Atrial fibrillation (Acute) Hyperlipidemia (Acute) Community acquired pneumonia (Acute) HTN (hypertension) (Chronic) GERD (gastroesophageal reflux disease) (Chronic) Dyslipidemia (Chronic) MARTHA on CPAP (Chronic) History of prostate cancer (Chronic) Atrial flutter with rapid ventricular response (Acute) Anemia Anxiety Atrial flutter Cancer PROSTATE CANCER Diverticulosis GERD (gastroesophageal reflux disease) Hyperlipidemia Hypertension Kidney stones Osteoarthritis Sleep apnea CPAP Surgical History S/P prostatectomy (Chronic) S/P tonsillectomy (Chronic) Status post implantation of artificial urinary sphincter (Chronic) H/O lithotripsy (Chronic) Colon polyp REMOVED (BENING) VIA EGD H/O eye surgery RT EYE-LASER PROCEDURE History of colonoscopy History of esophagogastroduodenoscopy (EGD) History of implantation of artificial sphincter History of lithotripsy History of prostatectomy WITH RADIATION History of tonsillectomy History of tooth extraction Family History Brother Family history of diabetes mellitus Family hx of colon cancer Alcohol abuse Cancer Hypertension Lung disease Cardiac disorder Father Alcohol abuse Hypertension Cardiac disorder Cancer Unknown Myocardial infarction Prostate cancer Colorectal cancer Social History Preferred Language: Welsh Communication Ability: Effective Beliefs That Will Affect Care: None Current Living Situation: Spouse Feels Safe at Home: Yes Smoking Status: Never smoker Second Hand Exposure: No Hx Alcohol Use: No Hx Substance Use: No Review of Systems Constitutional: + fatigue; no fever, no chills and no anorexia Respiratory: + dyspnea; no cough, no hemoptysis, no pain on inspiration, no pain with cough and no wheezing Cardiovascular: no chest pain, no syncope, no edema and no calf pain Gastrointestinal: + diarrhea/loose stools (Over the last couple days, reports more soft than overt loose stools); no abdominal pain, no nausea and no vomiting Genitourinary: no dysuria, no urinary frequency, no urinary hesitancy and no hematuria Physical Exam Constitutional: WD/WN, vitals as above cooperative and comfortable Eyes: PERRL, conjunctivae normal, anicteric sclerae ENMT: external ear and nose normal, oropharynx normal Respiratory: normal respiratory effort, lungs clear to auscultation Cardiovascular: Rate/Rhythm: + tachycardic and + irregularly irregular Heart Sounds: no murmur Extremities: no calf tenderness and no edema Gastrointestinal (Abdomen): Inspection/Auscultation: abdomen normal to inspection Percussion/Palpation: abdomen soft; abdomen nontender (Nontender, however he reports mild discomfort throughout the lower abdomen. Patient states that this is not new), no guarding and abdomen not rigid Skin: no rashes, warm and dry Neurologic: 5 out of 5 strength in upper and lower extremities. Sensation intact in upper and lower extremities. Psychiatric: A+Ox3, euthymic affect Results & Data Vital Signs (Past 12 Hours) Vital Signs Temp Pulse Pulse Resp BP BP Pulse Ox 03/15/19 19:00 138 H 20 123/91 95 03/15/19 18:50 137 H 19 94 03/15/19 18:45 137 H 21 117/94 96 03/15/19 18:40 138 H 28 H 96 03/15/19 18:30 137 H 26 H 134/100 97 03/15/19 18:20 137 H 24 94 03/15/19 18:15 138 H 24 127/97 97 03/15/19 18:10 137 H 20 95 03/15/19 18:00 138 H 25 H 127/90 95 03/15/19 17:57 139 H 22 132/93 97 03/15/19 17:50 139 H 26 H 96 03/15/19 17:45 139 H 26 H 132/93 96 03/15/19 17:40 139 H 25 H 96 03/15/19 17:30 140 H 34 H 128/91 98 03/15/19 17:20 140 H 20 98 03/15/19 17:15 140 H 25 H 123/87 98 03/15/19 17:12 138 H 17 97 03/15/19 16:45 138 H 19 133/96 95 03/15/19 16:40 139 H 22 96 03/15/19 16:30 139 H 24 124/93 97 03/15/19 16:20 139 H 23 96 03/15/19 16:15 139 H 26 H 125/94 96 03/15/19 16:10 140 H 20 98 03/15/19 16:00 141 H 16 124/99 99 03/15/19 15:50 139 H 20 95 03/15/19 15:45 139 H 24 136/92 96 03/15/19 15:42 139 H 24 97 03/15/19 15:30 139 H 17 122/88 98 03/15/19 15:28 97 03/15/19 15:10 36.4 C L 145 H 22 106/58 L 97 Supervising Physician Co-Signing Physician Notes 68yo C male with history of AF, HLP, GERD, HTN, HLP and metastatic Prostate CA. 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 He is presently enrolled in a clinical trial at [facility] with rucaparib. He was recently admitted with hemoptysis secondary to PNA which has since resolved. He presents with dyspnea, AF with RVR on arrival with HR of 145. He has been started on a Cardizem gtt and evaluated by Dr. Duarte from Cardiology while in the ER. On exam he is afebrile, hemodynamically stable, HR improved to 85, nontoxic in appearance HEENT - NC/AT, PERRL, MMM, neck supple Heart - +S1/S2, irregularlyl irregular, no m/r/g Lungs - CTA Abd - soft, NT/ND Ext - trace edema Labs and images reviewed. Patient with stable normochromic/normocytic anemia. Therapeutic INR of 2.2, stable renal function. Mildly increased AST/ALT from before Assessment/Plan: Observation to medical floor Continue Cardizem gtt Continue Coumadin Repeat LFTs in AM to assess trend - patient with known metastatic liver disease, increase in hepatic lesions noted on abdominal CT from 03/11/19. Remainder of plan as above PG Care Time/CCT Total # of Minutes Spent Total Time Spent with Patient: Total time spent is greater than 50% in coordination of care (as documented) at patient's floor/unit and/or counseling patient: Resident Activity Tracking Resident Involvement: Resident Care Provided Care Provided: Adult Hospital Medicine
[2019-03-15] MEDS ORDERED: LORATADINE 10 MG TAB PO PRN (21:31)
[2019-03-15] MEDS ORDERED: cefUROXime axetil 500 MG TAB PO SCH (21:31)
[2019-03-15] MEDS ORDERED: ACETAMINOPHEN 325 MG TAB PO PRN (21:31)
[2019-03-15] MEDS: METOPROLOL TARTRATE 50 MG TAB PO SCH (21:57)
[2019-03-15] MEDS: TERAZOSIN HCL 1 MG CAP PO SCH (22:21)
[2019-03-15] MEDS: EZETIMIBE 10 MG TABLET PO SCH (22:22)
[2019-03-15] MEDS: RUCAPARIB CAMSYLATE PO SCH (22:23)
[2019-03-15] MEDS ORDERED: RUCAPARIB CAMSYLATE PO SCH (22:30)
[2019-03-16 06:32] LABS: Basophils # (auto) 0.07 K/uL (0-0.2); Eosinophils # (auto) 0.43 K/uL (0-0.5); Eosinophils % (auto) 6.3 %; Hematocrit (blood only) 32.9 % (42-52); Immature Granulocytes # (auto) 0.03 K/uL (0.00-0.02); Immature Granulocytes % (auto) 0.4 %; Lymphocytes # (auto) 1.04 K/uL (1.2-3.4); Lymphocytes % (auto) 15.3 %; Mean Corpuscular Hgb Conc 33.4 g/dL (32-36); Mean Corpuscular Volume 93.7 fL (80-100); Mean Platelet Volume 10.8 fL (7.4-10.4); Monocytes % (auto) 8.8 %; Neutrophils # (auto) 4.61 K/uL (1.4-6.5); Neutrophils % (auto) 68.2 %; Platelet Count 210 K/uL (130-400); RDW Coefficient of Variation 13.9 % (11.5-14.5); RDW Standard Deviation 47.3 fL (36.4-46.3); Red Blood Count 3.51 M/uL (4.7-6.1); White Blood Count 6.78 K/uL (4.8-10.8)
[2019-03-16 06:58] LABS: Prothrombin Time 19.8 Seconds (9.0-12.0)
[2019-03-16 07:11] LABS: Albumin Globulin Ratio 0.9 (0.9-2); Albumin Level 3.2 gm/dl (3.4-5.0); Bilirubin,Total 0.6 mg/dl (0.2-1); Calcium 8.9 mg/dl (8.5-10.1); Creatinine Clr Calc Pharmacy 64.1 ml/min; Est GFR (African American) 65.3; Est GFR (Non-African American) 56.3; Globulin 3.5 gm/dl (2.5-4.0); Total Protein 6.7 gm/dl (6.4-8.2)
[2019-03-16 08:05] LABS: Potassium 3.4 mmol/L (3.5-5.1)
[2019-03-16] MEDS: BuPROPion XL 150 MG TABCR PO SCH (08:22)
[2019-03-16] MEDS: POTASSIUM CHLORIDE 10 MEQ TABCR PO SCH (08:23)
[2019-03-16] MEDS: CHOLECALCIFEROL (VITAMIN D) 400 UNITS TABLET PO SCH (08:24)
[2019-03-16] MEDS: RUCAPARIB CAMSYLATE PO SCH ×2 (08:24→20:45)
[2019-03-16] MEDS: METOPROLOL TARTRATE 50 MG TAB PO SCH ×2 (08:25→20:45)
[2019-03-16] MEDS: dilTIAZem HCl 125 MG in DEXTROSE 5% 100 ML IV SCH (08:41)
--- NOTE | 2019-03-16 09:33 | Family Medicine Progress Note ---
Date of Service March 16, 2019 Assessment & Plan (1) Atrial flutter: Mr. Suresh is a very pleasant 68 year old male with a past medical history significant for metastatic prostate cancer, atrial flutter with RVR, diverticulosis, hypertension, hyperlipidemia, GERD, MARTHA, anxiety, GI bleed, o steoarthritis who presented to the emergency department due to palpitations and shortness of breath that began at 7AM on the day of his admission. Upon presentation to [facility], he was found to be in atrial flutter. He was seen by Dr. Duarte, cardiology, who started him on a diltiazem drip. Atrial flutter with RVR -On telemetry -patient normally follows with Dr. Martinez -Patient has a history of paroxysmal atrial fibrillation/flutter -s/p Watchman procedure in December 2018 - patient is on Coumadin as he has a small clot on his device contraindication to cardioversion -Cardiology following, thank you for recommendations -> Unable to start antiarrhythmics given QTC -> Continue metoprolol added Cardizem 30 mg p.o. 3 times daily -> Continue to trend electrolytes and replete as indicated -Normally on metoprolol 3 times daily at home, will continue this -Started on diltiazem drip, with good response -Already anticoagulated with warfarin, INR therapeutic at 2.2 Left atrial thrombus -Anticoagulated with warfarin. -Scheduled for repeat transesophageal Echo in may 2019 Hypertension -Patient normally takes amiloride, amlodipine, hydralazine, losartan and metoprolol at home -Currently pressure stable given his recent addition of Cardizem I am unsure of the benefit of additional antihypertensive therapy, would appreciate cardiology's input -Can resume medications if patient becomes hypertensive, however adjustments will have to be made to his regimen prior to discharge as he will be placed on p.o. Cardizem -Note that hydralazine is not listed on the patient's home medications, as it was held on his previous discharge, to be resumed in the outpatient setting Community acquired pneumonia -resolved -Completed course of antibiotics -afebrile, no cough, no white cell count, no oxygen demand -Hemoptysis resolved -Chest x-ray looks improved from prior admission Metastatic prostate cancer -S/P radical prostatectomy -Follows with [facility], on rucaparib Diastolic CHF -Echo on 03/12 showed normal left ventricular systolic function, however patient has grade 1 diastolic dysfunction -Patient appears euvolemic at this time Anemia -Stable, hemoglobin 11.7 on admit, today 11 Elevated creatinine -Creatinine improving currently 1.31 down from 1.52 on admission -Hold home losartan, avoid nephrotoxic agents -Daily CMP Transaminitis -Patient with AST of 83 and ALT of 131, new from prior -Patient with known metastatic disease to liver, with small amount of ascites -Follow LFTs Loose stools -Could be secondary to antibiotics, no concern for C. difficile at this time given it is not overt diarrhea -Continue to monitor Hyperlipidemia -Continue daily ezetimibe GERD -Continue daily Zantac MARTHA -Continue nightly CPAP Anxiety -Continue home bupropion CODE STATUS: Full code Disposition: Admit to telemetry DVT prophylaxis: Coumadin F/E/N: Regular, no electrolyte abnormalities noted. Supervising Physician Co-Signing Physician Notes Resident Physician Supervision Note: I independently interviewed and examined the patient and verified the shetty history and physical, reviewed labs and image studies, discussed the case with the resident Dr. Sanchez and agree with the findings and care plan. Subjective Patient was sitting up in bed this morning in no acute distress my arrival exam. Patient reports no significant interval history overnight specifically denies chest pain, chest pressure, shortness of breath, nausea, vomiting, diarrhea. Patient reports tolerating his diet, voiding and stooling appropriately, and sleeping well. The patient has no acute concerns at present and all questions were answered Physical Exam Physical Exam: General: In no acute distress HEENT: Normocephalic atraumatic Neck: Trachea midline negative JVD normal visual inspection Cardiac: Irregularly irregular borderline tachycardic I do not appreciate any murmurs rubs or gallops, negative calf tenderness, negative edema Respiratory: Clear to auscultation bilaterally GI: Soft nontender nondistended normal bowel sounds MSK: Moves all extremities Skin: No new rash Neuro: AAO x4 Psych: Calm cooperative Results & Data Vital Signs (Past 12 Hours) Vital Signs Temp Pulse Pulse Resp BP BP Pulse Ox 03/16/19 08:47 94 H 03/16/19 08:00 03/16/19 07:10 36.7 C 84 19 131/76 93 03/16/19 04:16 36.9 C 71 14 138/73 96 03/16/19 00:00 36.9 C 74 22 128/72 94 Pulse Ox 03/16/19 08:47 03/16/19 08:00 93 03/16/19 07:10 03/16/19 04:16 03/16/19 00:00 Laboratory Results 03/16/19 03/16/19 03/16/19 Range/Units 07:29 06:33 06:11 WBC (4.8-10.8) K/uL RBC (4.7-6.1) M/uL Hgb (14.0-18.0) g/dL Hct (42-52) % MCV (80-100) fL MCH (25-34) pg MCHC (32-36) g/dL RDW Std Deviation (36.4-46.3) fL RDW Coeff of Lauren (11.5-14.5) % Plt Count (130-400) K/uL MPV (7.4-10.4) fL Immature Gran % (Auto) % Neut % (Auto) % Lymph % (Auto) % [place] % (Auto) % Eos % (Auto) % Baso % (Auto) % Immature Gran # (Auto) (0.00-0.02) K/uL Neut # (Auto) (1.4-6.5) K/uL Lymph # (Auto) (1.2-3.4) K/uL [place] # (Auto) (0.11-0.59) K/uL Eos # (Auto) (0-0.5) K/uL Baso # (Auto) (0-0.2) K/uL PT 19.8 H (9.0-12.0) Seconds INR 2.0 H (0.9-1.1) APTT (21.0-31.0) Seconds PTT Ratio Sodium 143 (136-145) mmol/L Potassium 3.4 L D (3.5-5.1) mmol/L Chloride 110 H (98-107) mmol/L Carbon Dioxide 26 (21-32) mmol/L Anion Gap 7.0 (3-11) BUN 17 (7-18) mg/dl Creatinine 1.31 (0.6-1.4) mg/dl Est Cr Clr Drug Dosing 64.1 ml/min Est GFR ( Amer) 65.3 Est GFR (Non-Af Amer) 56.3 BUN/Creatinine Ratio 13.0 (10-20) Glucose 95 (70-99) mg/dl Calcium 8.9 (8.5-10.1) mg/dl Magnesium 2.0 (1.8-2.4) mg/dl Total Bilirubin 0.6 (0.2-1) mg/dl AST 52 H (15-37) U/L ALT 102 H (12-78) U/L Alkaline Phosphatase 94 (45-117) U/L Troponin I (0-0.045) ng/ml Total Protein 6.7 (6.4-8.2) gm/dl Albumin 3.2 L (3.4-5.0) gm/dl Globulin 3.5 (2.5-4.0) gm/dl Albumin/Globulin Ratio 0.9 (0.9-2) 03/16/19 03/15/19 03/15/19 Range/Units 06:11 15:40 15:40 WBC 6.78 (4.8-10.8) K/uL RBC 3.51 L (4.7-6.1) M/uL Hgb 11.0 L (14.0-18.0) g/dL Hct 32.9 L (42-52) % MCV 93.7 (80-100) fL MCH 31.3 (25-34) pg MCHC 33.4 (32-36) g/dL RDW Std Deviation 47.3 H (36.4-46.3) fL RDW Coeff of Lauren 13.9 (11.5-14.5) % Plt Count 210 (130-400) K/uL MPV 10.8 H (7.4-10.4) fL Immature Gran % (Auto) 0.4 % Neut % (Auto) 68.2 % Lymph % (Auto) 15.3 % [place] % (Auto) 8.8 % Eos % (Auto) 6.3 % Baso % (Auto) 1.0 % Immature Gran # (Auto) 0.03 H (0.00-0.02) K/uL Neut # (Auto) 4.61 (1.4-6.5) K/uL Lymph # (Auto) 1.04 L (1.2-3.4) K/uL [place] # (Auto) 0.60 H (0.11-0.59) K/uL Eos # (Auto) 0.43 (0-0.5) K/uL Baso # (Auto) 0.07 (0-0.2) K/uL PT 20.9 H (9.0-12.0) Seconds INR 2.2 H (0.9-1.1) APTT 32.9 H (21.0-31.0) Seconds PTT Ratio 1.2 Sodium 144 (136-145) mmol/L Potassium 4.2 D (3.5-5.1) mmol/L Chloride 108 H (98-107) mmol/L Carbon Dioxide 27 (21-32) mmol/L Anion Gap 8.0 (3-11) BUN 21 H (7-18) mg/dl Creatinine 1.52 H (0.6-1.4) mg/dl Est Cr Clr Drug Dosing 55.3 ml/min Est GFR ( Amer) 54.6 Est GFR (Non-Af Amer) 47.1 BUN/Creatinine Ratio 13.8 (10-20) Glucose 127 H (70-99) mg/dl Calcium 9.7 (8.5-10.1) mg/dl Magnesium (1.8-2.4) mg/dl Total Bilirubin 0.5 (0.2-1) mg/dl AST 83 H (15-37) U/L ALT 131 H (12-78) U/L Alkaline Phosphatase 111 (45-117) U/L Troponin I < 0.015 (0-0.045) ng/ml Total Protein 7.8 (6.4-8.2) gm/dl Albumin 3.6 (3.4-5.0) gm/dl Globulin 4.2 H (2.5-4.0) gm/dl Albumin/Globulin Ratio 0.9 (0.9-2) 03/15/19 Range/Units 15:40 WBC 6.63 (4.8-10.8) K/uL RBC 3.78 L (4.7-6.1) M/uL Hgb 11.7 L (14.0-18.0) g/dL Hct 35.0 L (42-52) % MCV 92.6 (80-100) fL MCH 31.0 (25-34) pg MCHC 33.4 (32-36) g/dL RDW Std Deviation 47.1 H (36.4-46.3) fL RDW Coeff of Lauren 14.0 (11.5-14.5) % Plt Count 231 (130-400) K/uL MPV 11.3 H (7.4-10.4) fL Immature Gran % (Auto) 0.5 % Neut % (Auto) 73.2 % Lymph % (Auto) 13.7 % [place] % (Auto) 6.3 % Eos % (Auto) 5.4 % Baso % (Auto) 0.9 % Immature Gran # (Auto) 0.03 H (0.00-0.02) K/uL Neut # (Auto) 4.85 (1.4-6.5) K/uL Lymph # (Auto) 0.91 L (1.2-3.4) K/uL [place] # (Auto) 0.42 (0.11-0.59) K/uL Eos # (Auto) 0.36 (0-0.5) K/uL Baso # (Auto) 0.06 (0-0.2) K/uL PT (9.0-12.0) Seconds INR (0.9-1.1) APTT (21.0-31.0) Seconds PTT Ratio Sodium (136-145) mmol/L Potassium (3.5-5.1) mmol/L Chloride (98-107) mmol/L Carbon Dioxide (21-32) mmol/L Anion Gap (3-11) BUN (7-18) mg/dl Creatinine (0.6-1.4) mg/dl Est Cr Clr Drug Dosing ml/min Est GFR ( Amer) Est GFR (Non-Af Amer) BUN/Creatinine Ratio (10-20) Glucose (70-99) mg/dl Calcium (8.5-10.1) mg/dl Magnesium (1.8-2.4) mg/dl Total Bilirubin (0.2-1) mg/dl AST (15-37) U/L ALT (12-78) U/L Alkaline Phosphatase (45-117) U/L Troponin I (0-0.045) ng/ml Total Protein (6.4-8.2) gm/dl Albumin (3.4-5.0) gm/dl Globulin (2.5-4.0) gm/dl Albumin/Globulin Ratio (0.9-2) Medications Administered Current Inpatient Medications Acetaminophen (Tylenol) 650 mg PO Q4H PRN PRN Reason: Pain or Fever Stop: 04/14/19 21:30 Bupropion HCl (Wellbutrin-Xl) 150 mg PO QAM [facility] Stop: 04/15/19 08:59 Last Admin: 03/16/19 08:22 Dose: 150 mg Documented by: Ezetimibe (Zetia) 10 mg PO QPM [facility] Stop: 04/14/19 21:30 Last Admin: 03/15/19 22:22 Dose: 10 mg Documented by: Diltiazem HCl 125 mg/ Dextrose 125 mls @ 5 mls/hr IV .Q24H [facility]; Protocol Stop: 04/14/19 17:29 Last Admin: 03/16/19 08:41 Dose: 5 mg/hr, 5 mls/hr Documented by: Loratadine (Claritin) 10 mg PO DAILY PRN PRN Reason: allergies Stop: 04/14/19 21:30 Last Admin: 03/16/19 08:23 Dose: 10 mg Documented by: Metoprolol Tartrate (Lopressor) 50 mg PO BID [facility] Stop: 04/14/19 21:59 Last Admin: 03/16/19 08:25 Dose: 50 mg Documented by: Metoprolol Tartrate (Lopressor) 25 mg PO 1500 [facility] Stop: 04/15/19 14:59 Potassium Chloride (Klor-Con M10) 20 meq PO QAM [facility] Stop: 04/15/19 08:59 Last Admin: 03/16/19 08:23 Dose: 20 meq Documented by: Potassium Chloride (Klor-Con M20) 20 meq PO NOW ONE Stop: 03/16/19 10:01 Ranitidine HCl (Zantac) 150 mg PO QPM [facility] Stop: 04/14/19 21:30 Last Admin: 03/15/19 22:22 Dose: 150 mg Documented by: Rucaparib (Rubraca) 2 ea PO BID [facility] Stop: 04/14/19 22:29 Last Admin: 03/16/19 08:24 Dose: 2 ea Documented by: Terazosin HCl (Hytrin) 4 mg PO HS [facility] Stop: 04/14/19 21:30 Last Admin: 03/15/19 22:21 Dose: 4 mg Documented by: Vitamin D (Vitamin D3) 400 units PO DAILY [facility] Stop: 04/15/19 08:59 Last Admin: 03/16/19 08:24 Dose: 400 units Documented by: Warfarin Sodium (Coumadin) 2.5 mg PO DAILY@1600 [facility] Stop: 04/15/19 15:59 PG Care Time/CCT Total # of Minutes Spent Total Time Spent with Patient: Total time spent is greater than 50% in coordination of care (as documented) at patient's floor/unit and/or counseling patient: Resident Activity Tracking Resident Involvement: Resident Care Provided Care Provided: Adult Hospital Medicine
[2019-03-16] MEDS ORDERED: POTASSIUM CHLORIDE 20 MEQ TABCR PO ONE ×2 (10:00→12:15)
--- NOTE | 2019-03-16 12:23 | Cardiology Progress Note ---
Date of Service March 16, 2019 Assessment & Plan (1) Atrial flutter: Matthew has a history of paroxysmal atrial fibrillation and atrial flutter. He does not have the past history or current history of feeling that his heart rate is elevated or irregular, but does have associated symptoms of exertional shortness of breath that correlate with his atrial arrhythmias. He has a history of preserved LVEF, amaurosis fugax as a stroke in 2019, metastatic prostate cancer, and past history of gastrointestinal bleeding. A ZioPatch performed for 2 weeks in 11/2018 revealed predominant rhythm of sinus rhythm with paroxysmal atrial fibrillation, the burden was 6%, with longest episode of 6 hours and 40 minutes. EKGs in the past of also demonstrated atrial flutter, redemonstrated earlier this month and again yesterday and today. The patient had been anticoagulated with Eliquis for 1 month prior to and 6 weeks post implantation of a WATCHMAN left atrial appendage occlusion device 01/03/19 at [facility]. On his 6-week follow-up transesophageal echocardiogram however at the took place on 02/19/2019 he was found to have a 4 mm mobile thrombus adherent to the atrial aspect of the device. The device was otherwise well situated without any flow around the device. Sinus rhythm was noted at the time of the procedure. The patient was therefore transitioned from Eliquis to Coumadin with goal INR of 2-3, and has had therapeutic INR measurements documented on 03/07/2019, 03/11/2019, 03/15/2019, and again today . A repeat transesophageal echocardiogram is tentatively planned after 3 months of therapeutic anticoagulation for mid May,. At present, I am hesitant to start antiarrhythmic therapy due to the left atrial thrombus, and will proceed with ongoing rate control strategy, adding oral diltiazem to his home dose of metoprolol tartrate. His response this medication will need to be monitored closely, as per his heart monitor performed in November, the average rate 20 was in sinus rhythm was 54 bpm. There is been concerns of elevated corrected QT interval on presentation. The QT interval is measured when the patient was in atrial flutter on 7 1, 7 2, 7 3, and 7 , revealed QT interval in the range of 480 to 510 ms. This however needs to be interpreted in the setting of of the atrial flutter, and I think it is difficult to distinguish the atrial activity from the T wave. I reviewed multiple EKG tracings performed previously when the patient was in sinus rhythm and his QT interval is typically normal in the range of 450 to 479 ms. Replace his potassium, he received 20 meq earlier today, and will administer another dose of 20 meq given level of 3.4. Repeat in am. (2) Left atrial thrombus: As noted above. I reviewed the transesophageal echocardiogram images performed [place] [facility] [place]19[place] independently. A 4 mm mobile thrombus is noted on the atrial surface of the occlusion device. The patient was in sinus rhythm during the study. Perhaps Eliquis was not effective in this particular case, or perhaps the patient does have underlying hypercoagulability given his prostate cancer. Also noted that since his watchman device, he has been off of anticoagulation for several days to allow liver biopsy, and then EGD colonoscopy. Patient is now anticoagulated with Coumadin with therapeutic INR. (3) Abnormal transaminases: Recent AST, ALT levels have been within normal limits up to a few days ago, elevated yesterday and again today. Will repeat tomorrow. (4) 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: Patient continues his study medication, he is in a clinical trial at [facility]. Per review of his [facility] reports available in epic, an MRI of the abdomen had been performed in Jan, 2019 revealing 2 right hepatic lobe lesions suspicious for metastasis. Enlarged portacaval lymph node noted. Severe right and moderate left hydronephrosis with nonobstructing bilateral renal calculi noted, not significantly changed compared to a prior CT dated 01/09/2019. A trace right pleural effusion noted as well as a small pericardial effusion noted as well. -No significant pericardial effusion noted at the time of recent transesophageal echocardiogram in February, however this was a focused study. This was followed up with a transthoracic echo performed 03/12/2019 without findings of significant pericardial effusion. LVEF greater than 70% at that time. Subjective Chief complaint: Follow-up exertional shortness of breath Subjective: Patient feeling comfortable. He had been seen in consultation by Dr. Duarte in the emergency room yesterday at which time atrial flutter with rapid ventricular response noted. The patient was placed on IV diltiazem. This morning, atrial flutter has persisted on telemetry with rates in the range of 70 bpm at rest and 70 to 90 bpm with activity such as walking to the bathroom. He remains on IV diltiazem at 5 mg/h. Is in no acute distress. He is comfortable in bed. Review of Systems Review of Systems: All systems reviewed & are unremarkable except as noted in HPI & below Physical Exam Constitutional: WD/WN, vitals as above Respiratory: normal respiratory effort, lungs clear to auscultation Cardiovascular: Rate/Rhythm: regular rate Heart Sounds: no murmur and no cardiac rub Vessels: no JVD Extremities: no edema Gastrointestinal (Abdomen): normal bowel sounds, soft, nontender, no hepatosplenomegaly Skin: no rashes, warm and dry Neurologic: PERRL, EOMI, accommodation nl, no face palsy, no dysarthria Results & Data Vital Signs (Past 12 Hours) Vital Signs Temp Pulse Pulse Resp BP Pulse Ox Pulse Ox 03/16/19 11:55 36.5 C 83 18 148/91 H 98 03/16/19 08:47 94 H 03/16/19 08:00 93 03/16/19 07:10 36.7 C 84 19 131/76 93 03/16/19 04:16 36.9 C 71 14 138/73 96 Laboratory Results Cardiac Enzymes 03/15/19 03/16/19 03/16/19 Range/Units 15:40 06:11 07:29 AST 83 H 52 H (15-37) U/L Troponin I < 0.015 (0-0.045) ng/ml Coagulation 03/15/19 03/16/19 Range/Units 15:40 06:33 PT 20.9 H 19.8 H (9.0-12.0) Seconds APTT 32.9 H (21.0-31.0) Seconds CBC 03/15/19 03/16/19 Range/Units 15:40 06:11 WBC 6.63 6.78 (4.8-10.8) K/uL RBC 3.78 L 3.51 L (4.7-6.1) M/uL Hgb 11.7 L 11.0 L (14.0-18.0) g/dL Hct 35.0 L 32.9 L (42-52) % Plt Count 231 210 (130-400) K/uL Neut # (Auto) 4.85 4.61 (1.4-6.5) K/uL Lymph # (Auto) 0.91 L 1.04 L (1.2-3.4) K/uL [place] # (Auto) 0.42 0.60 H (0.11-0.59) K/uL Eos # (Auto) 0.36 0.43 (0-0.5) K/uL Baso # (Auto) 0.06 0.07 (0-0.2) K/uL Comprehensive Metabolic Panel 03/15/19 03/16/19 03/16/19 Range/Units 15:40 06:11 07:29 Sodium 144 143 (136-145) mmol/L Potassium 4.2 D 3.4 L D (3.5-5.1) mmol/L Chloride 108 H 110 H (98-107) mmol/L Carbon Dioxide 27 26 (21-32) mmol/L BUN 21 H 17 (7-18) mg/dl Creatinine 1.52 H 1.31 (0.6-1.4) mg/dl Glucose 127 H 95 (70-99) mg/dl Calcium 9.7 8.9 (8.5-10.1) mg/dl AST 83 H 52 H (15-37) U/L ALT 131 H 102 H (12-78) U/L Alkaline Phosphatase 111 94 (45-117) U/L Total Protein 7.8 6.7 (6.4-8.2) gm/dl Albumin 3.6 3.2 L (3.4-5.0) gm/dl Intake and Output 03/15/19 03/16/19 03/16/19 22:59 06:59 14:59 Intake Total 58.333 / 96.833 38.5 / 96.833 38.75 / 38.75 Balance 58.333 / 96.833 38.5 / 96.833 38.75 / 38.75 Intake: IV 58.333 / 96.833 38.5 / 96.833 38.75 / 38.75 Cardizem 125 mg In D5 100 ml @ 58.333 / 96.833 38.5 / 96.833 38.75 / 38.75 5 MG/HR 5 mls/hr IV .Q24H [facility] Rx#:[id number] Other: Other Intake Source sips # Unmeasured Voids 2 Weight 94.8 kg INR today 03/16/2019 :2 Diagnostic Findings EKG performed 03/15/2019 1528 and reviewed independently reveals atrial flutter at 141 bpm. Medications Administered Current Inpatient Medications Acetaminophen (Tylenol) 650 mg PO Q4H PRN PRN Reason: Pain or Fever Stop: 04/14/19 21:30 Bupropion HCl (Wellbutrin-Xl) 150 mg PO QAM [facility] Stop: 04/15/19 08:59 Last Admin: 03/16/19 08:22 Dose: 150 mg Documented by: Diltiazem HCl (Cardizem) 30 mg PO TID [facility] Stop: 04/15/19 13:59 Ezetimibe (Zetia) 10 mg PO QPM [facility] Stop: 04/14/19 21:30 Last Admin: 03/15/19 22:22 Dose: 10 mg Documented by: Loratadine (Claritin) 10 mg PO DAILY PRN PRN Reason: allergies Stop: 04/14/19 21:30 Last Admin: 03/16/19 08:23 Dose: 10 mg Documented by: Metoprolol Tartrate (Lopressor) 50 mg PO BID [facility] Stop: 04/14/19 21:59 Last Admin: 03/16/19 08:25 Dose: 50 mg Documented by: Metoprolol Tartrate (Lopressor) 25 mg PO 1500 [facility] Stop: 04/15/19 14:59 Potassium Chloride (Klor-Con M10) 20 meq PO QAM [facility] Stop: 04/15/19 08:59 Last Admin: 03/16/19 08:23 Dose: 20 meq Documented by: Ranitidine HCl (Zantac) 150 mg PO QPM [facility] Stop: 04/14/19 21:30 Last Admin: 03/15/19 22:22 Dose: 150 mg Documented by: Rucaparib (Rubraca) 2 ea PO BID [facility] Stop: 04/14/19 22:29 Last Admin: 03/16/19 08:24 Dose: 2 ea Documented by: Terazosin HCl (Hytrin) 4 mg PO HS [facility] Stop: 04/14/19 21:30 Last Admin: 03/15/19 22:21 Dose: 4 mg Documented by: Vitamin D (Vitamin D3) 400 units PO DAILY [facility] Stop: 04/15/19 08:59 Last Admin: 03/16/19 08:24 Dose: 400 units Documented by: Warfarin Sodium (Coumadin) 2.5 mg PO DAILY@1600 [facility] Stop: 04/15/19 15:59
[2019-03-16] MEDS: dilTIAZem HCL 30 MG TAB PO SCH ×2 (13:20→20:45)
[2019-03-16] MEDS: METOPROLOL TARTRATE 25 MG TAB PO SCH (14:51)
[2019-03-16] MEDS ORDERED: WARFARIN SOD 2.5 MG TAB PO SCH (16:00)
[2019-03-16] MEDS: TERAZOSIN HCL 1 MG CAP PO SCH (20:43)
[2019-03-16] MEDS: EZETIMIBE 10 MG TABLET PO SCH (20:44)
[2019-03-17 06:22] LABS: Hematocrit (blood only) 34.2 % (42-52); Hemoglobin 11.8 g/dL (14.0-18.0); Mean Corpuscular Hgb Conc 34.5 g/dL (32-36); Mean Corpuscular Volume 93.2 fL (80-100); Mean Platelet Volume 10.9 fL (7.4-10.4); Platelet Count 244 K/uL (130-400); RDW Coefficient of Variation 13.8 % (11.5-14.5); RDW Standard Deviation 46.8 fL (36.4-46.3); Red Blood Count 3.67 M/uL (4.7-6.1); White Blood Count 8.58 K/uL (4.8-10.8)
[2019-03-17 06:31] LABS: INR 1.7 (0.9-1.1); Prothrombin Time 17.2 Seconds (9.0-12.0)
[2019-03-17 06:55] LABS: Albumin Level 3.4 gm/dl (3.4-5.0); BUN Creatinine Ratio 12.3 (10-20); Calcium 9.1 mg/dl (8.5-10.1); Creatinine Clr Calc Pharmacy 62.7 ml/min; Est GFR (African American) 63.5; Est GFR (Non-African American) 54.8; Potassium 3.7 mmol/L (3.5-5.1)
[2019-03-17 06:58] LABS: Albumin Globulin Ratio 0.9 (0.9-2); Bilirubin,Total 0.6 mg/dl (0.2-1); Globulin 3.8 gm/dl (2.5-4.0); Total Protein 7.2 gm/dl (6.4-8.2)
[2019-03-17] MEDS: POTASSIUM CHLORIDE 10 MEQ TABCR PO SCH (08:10)
[2019-03-17] MEDS: dilTIAZem HCL 30 MG TAB PO SCH (08:10)
[2019-03-17] MEDS: RUCAPARIB CAMSYLATE PO SCH ×2 (08:11→20:58)
[2019-03-17] MEDS: METOPROLOL TARTRATE 50 MG TAB PO SCH ×2 (08:11→20:57)
[2019-03-17] MEDS: BuPROPion XL 150 MG TABCR PO SCH (08:11)
[2019-03-17] MEDS: CHOLECALCIFEROL (VITAMIN D) 400 UNITS TABLET PO SCH (08:12)
--- NOTE | 2019-03-17 09:20 | Family Medicine Progress Note ---
Date of Service March 17, 2019 Assessment & Plan (1) Atrial flutter: Mr. Suresh is a very pleasant 68 year old male with a past medical history significant for metastatic prostate cancer, atrial flutter with RVR, diverticulosis, hypertension, hyperlipidemia, GERD, MARTHA, anxiety, GI bleed, o steoarthritis who presented to the emergency department due to palpitations and shortness of breath that began at 7AM on the day of his admission. Upon presentation to [facility], he was found to be in atrial flutter. He was seen by Dr. Duarte, cardiology, who started him on a diltiazem drip. Atrial flutter Atrial Thrombus Patient has a history of paroxysmal atrial fibrillation/flutter, normally follows with Dr. Martinez. S/p Watchman procedure in December 2018 - patient is on Coumadin as he has a small clot on his device contraindication to cardioversion. On admission was placed on a diltiazem drip this is been discontinued. -Admitted to telemetry -Cardiology following, -> Unable to start antiarrhythmics given QTC -> Continue metoprolol added Cardizem 60 mg p.o. 3 times daily -> Continue to trend electrolytes and replete as indicated -> Subtherapeutic INR of 1.7 today increase Coumadin to 5 mg today and 4 mg tomorrow bridging with unfractionated heparin drip until INR greater than 2 -> Not a good candidate for amiodarone given elevated transaminases and liver mets Hypertension -Patient normally takes amiloride, amlodipine, hydralazine, losartan and metoprolol at home -Currently pressure stable given his recent addition of Cardizem -Can resume medications if patient becomes hypertensive, however adjustments will have to be made to his regimen prior to discharge as he will be placed on p.o. Cardizem -Note that hydralazine is not listed on the patient's home medications, as it was held on his previous discharge, to be resumed in the outpatient setting Community acquired pneumonia -resolved -Completed course of antibiotics -afebrile, no cough, no white cell count, no oxygen demand -Hemoptysis resolved -Chest x-ray looks improved from prior admission Metastatic prostate cancer -S/P radical prostatectomy -Follows with [facility], on rucaparib Diastolic CHF -Echo on 03/12 showed normal left ventricular systolic function, however patient has grade 1 diastolic dysfunction -Patient appears euvolemic at this time Anemia -Stable, hemoglobin 11.7 on admit, today 11.8 Elevated creatinine -Creatinine improving currently 1.34 down from 1.52 on admission -Hold home losartan, avoid nephrotoxic agents -Daily CMP Transaminitis -Patient with AST of 83 and ALT of 131, trending down now AST 58 ALT 102, would expect him to continue to improve -Patient with known metastatic disease to liver, with small amount of ascites -Follow LFTs Loose stools -Could be secondary to antibiotics, no concern for C. difficile at this time given it is not overt diarrhea -Continue to monitor Hyperlipidemia -Continue daily ezetimibe GERD -Continue daily Zantac MARTHA -Continue nightly CPAP Anxiety -Continue home bupropion CODE STATUS: Full code Disposition: Admit to telemetry DVT prophylaxis: Coumadin F/E/N: Regular, no electrolyte abnormalities noted. Supervising Physician Co-Signing Physician Notes Resident Physician Supervision Note: I independently interviewed and examined the patient and verified the shetty history and physical, reviewed labs and image studies, discussed the case with the resident Dr. Sanchez and agree with the findings and care plan. Subjective Patient is doing well this morning lying in bed in no acute distress. Patient reported no acute events overnight, however in the flask pusher he had an episode of tachycardia. Which resolved spontaneously. He spoke with Dr. Duarte about this he would like to keep him additional night for observation and tweaking his meds. Patient reports tolerating his diet, voiding, stooling, and sleeping appropriately. The patient has no acute concerns at present and all questions were answered. Patient is a very friendly gentleman and prior to his recurrence of prostate cancer is plan was for him and his to move to [facility]. 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 Physical Exam Physical Exam: General: In no acute distress HEENT: Normocephalic atraumatic Neck: Trachea midline negative JVD normal visual inspection Cardiac: Irregularly irregular borderline tachycardic I do not appreciate any murmurs rubs or gallops, negative calf tenderness, negative edema Respiratory: Clear to auscultation bilaterally GI: Soft nontender nondistended normal bowel sounds MSK: Moves all extremities Skin: No new rash Neuro: AAO x4 Psych: Calm cooperative Results & Data Vital Signs (Past 12 Hours) Vital Signs Temp Pulse Resp BP Pulse Ox Pulse Ox 03/17/19 08:00 98 03/17/19 07:37 37.3 C 59 L 16 131/80 95 03/17/19 03:29 36.9 C 80 18 131/81 96 03/16/19 23:47 36.8 C 109 H 18 140/80 95 Laboratory Results 03/17/19 03/17/19 03/17/19 Range/Units 05:54 05:54 05:54 WBC 8.58 (4.8-10.8) K/uL RBC 3.67 L (4.7-6.1) M/uL Hgb 11.8 L (14.0-18.0) g/dL Hct 34.2 L (42-52) % MCV 93.2 (80-100) fL MCH 32.2 (25-34) pg MCHC 34.5 (32-36) g/dL RDW Std Deviation 46.8 H (36.4-46.3) fL RDW Coeff of Lauren 13.8 (11.5-14.5) % Plt Count 244 (130-400) K/uL MPV 10.9 H (7.4-10.4) fL PT 17.2 H (9.0-12.0) Seconds INR 1.7 H (0.9-1.1) Sodium 143 (136-145) mmol/L Potassium 3.7 (3.5-5.1) mmol/L Chloride 111 H (98-107) mmol/L Carbon Dioxide 26 (21-32) mmol/L Anion Gap 6.0 (3-11) BUN 17 (7-18) mg/dl Creatinine 1.34 (0.6-1.4) mg/dl Est Cr Clr Drug Dosing 62.7 ml/min Est GFR ( Amer) 63.5 Est GFR (Non-Af Amer) 54.8 BUN/Creatinine Ratio 12.3 (10-20) Glucose 95 (70-99) mg/dl Calcium 9.1 (8.5-10.1) mg/dl Magnesium 2.0 (1.8-2.4) mg/dl Total Bilirubin 0.6 (0.2-1) mg/dl AST 58 H (15-37) U/L ALT 102 H (12-78) U/L Alkaline Phosphatase 104 (45-117) U/L Total Protein 7.2 (6.4-8.2) gm/dl Albumin 3.4 (3.4-5.0) gm/dl Globulin 3.8 (2.5-4.0) gm/dl Albumin/Globulin Ratio 0.9 (0.9-2) Medications Administered Current Inpatient Medications Acetaminophen (Tylenol) 650 mg PO Q4H PRN PRN Reason: Pain or Fever Stop: 04/14/19 21:30 Bupropion HCl (Wellbutrin-Xl) 150 mg PO QAM [facility] Stop: 04/15/19 08:59 Last Admin: 03/17/19 08:11 Dose: 150 mg Documented by: Diltiazem HCl (Cardizem) 30 mg PO TID [facility] Stop: 04/15/19 13:59 Last Admin: 03/17/19 08:10 Dose: 30 mg Documented by: Ezetimibe (Zetia) 10 mg PO QPM [facility] Stop: 04/14/19 21:30 Last Admin: 03/16/19 20:44 Dose: 10 mg Documented by: Loratadine (Claritin) 10 mg PO DAILY PRN PRN Reason: allergies Stop: 04/14/19 21:30 Last Admin: 03/16/19 08:23 Dose: 10 mg Documented by: Metoprolol Tartrate (Lopressor) 50 mg PO BID [facility] Stop: 04/14/19 21:59 Last Admin: 03/17/19 08:11 Dose: 50 mg Documented by: Metoprolol Tartrate (Lopressor) 25 mg PO 1500 [facility] Stop: 04/15/19 14:59 Last Admin: 03/16/19 14:51 Dose: 25 mg Documented by: Potassium Chloride (Klor-Con M10) 20 meq PO QAM [facility] Stop: 04/15/19 08:59 Last Admin: 03/17/19 08:10 Dose: 20 meq Documented by: Ranitidine HCl (Zantac) 150 mg PO QPM [facility] Stop: 04/14/19 21:30 Last Admin: 03/16/19 20:44 Dose: 150 mg Documented by: Rucaparib (Rubraca) 2 ea PO BID [facility] Stop: 04/14/19 22:29 Last Admin: 03/17/19 08:11 Dose: 2 ea Documented by: Terazosin HCl (Hytrin) 4 mg PO HS [facility] Stop: 04/14/19 21:30 Last Admin: 03/16/19 20:43 Dose: 4 mg Documented by: Vitamin D (Vitamin D3) 400 units PO DAILY [facility] Stop: 04/15/19 08:59 Last Admin: 03/17/19 08:12 Dose: 400 units Documented by: Warfarin Sodium (Coumadin) 2.5 mg PO DAILY@1600 [facility] Stop: 04/15/19 15:59 Last Admin: 03/16/19 16:28 Dose: 2.5 mg Documented by: PG Care Time/CCT Total # of Minutes Spent Total Time Spent with Patient: Total time spent is greater than 50% in coordination of care (as documented) at patient's floor/unit and/or counseling patient: Resident Activity Tracking Resident Involvement: Resident Care Provided Care Provided: Adult Hospital Medicine
[2019-03-17] MEDS ORDERED: dilTIAZem HCl 5 MG/ML 5 ML VIAL IV STA (09:58)
[2019-03-17] MEDS ORDERED: Heparin IV Standard *NO* Bolus IV SCH (10:00)
--- NOTE | 2019-03-17 10:16 | Cardiology Progress Note ---
Date of Service March 17, 2019 Assessment & Plan (1) Atrial flutter with rapid ventricular response: Minimally symptomatic to asymptomatic. Blood pressure stable. Although EKG includes findings of corrected QT interval in 497 ms, this is difficult to distinguish, given the downgoing atrial activity in leads II, III and aVF, and is difficult to stick with the atrial activity from the T wave, and I therefore do not think this QT interval measurement is accurate. The patient's past EKGs while in sinus rhythm demonstrated normal QT interval. Continue rate control strategy with oral metoprolol. Increase oral diltiazem to 60 mg 3 times daily. Will administer bolus of IV diltiazem 10 mg x 1 this morning. It is noted that in the past when he has been in sinus rhythm, his heart rates are relatively low in the 50 bpm range, and therefore need to adjust AV rocío blockers with caution. Holding off on antiarrhythmic therapy given his history of left atrial thrombus, and current subtherapeutic INR. Patient has a history of both paroxysmal atrial fibrillation and atrial flutter. Per EKG, the atrial flutter does appear to be a right-sided atrial flutter with negative access of the flutter waves in the inferior leads, and positive axis in leads V1 to V3. Future considerations include tricuspid isthmus flutter ablation after left atrial thrombus has resolved. (2) Left atrial thrombus: The patient has a history of preserved LVEF, as recently demonstrated within the last week on repeat transthoracic echocardiogram at [facility], no significant pericardial effusion was noted at that time. He does have a history of amaurosis fugax and stroke earlier this year. The patient underwent watchman left atrial appendage occlusion device on 01/03/2019 at [facility]. He had been on uninterrupted Eliquis for 1 month prior to the procedure. At the time of his 6-week follow-up transesophageal echocardiogram took place at [facility] on 02/19/2019 he was found to have a 4 mm mobile thrombus adherent to the atrial aspect of the device. Sinus rhythm was noted at the time of the procedure. The patient did not have uninterrupted anticoagulation post watchman, as his Eliquis was discontinued for a liver biopsy, and was discontinued again shortly after the transesophageal echo on 02/19/2019 for an EGD colonoscopy performed at [facility]. After the EGD colonoscopy he was transitioned from Eliquis to Coumadin, with therapeutic INR measurements on 03/07/2019, 03/11/2019, 03/15/2019, 03/16/2019, and a subtherapeutic measurement today 03/17/2019. He has therefore had a therapeutic anticoagulation for only about 2 weeks prior to today's low INR. Regarding rhythm control strategy with antiarrhythmic therapy or direct-current cardioversion. Even if repeat transesophageal echocardiogram performed during his hospital stay revealed improvement in the left atrial thrombus, I would be very hesitant to proceed with electrical cardioversion without him having been on therapeutic anticoagulation for at least 4 weeks due to risk of microscopic thrombus that might not be detected by transesophageal echocardiogram. Given lack of clinical symptoms at present with the rapid rates, I think the most prudent to rate control him in the short-term and manage his anticoagulation. INR 1.7 today, will increase Coumadin from 2.5 mg to 5 mg x 1 today, then 4 mg tomorrow. Bridge with unfractionated heparin until INR greater than 2. (3) 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: Mild transaminase elevation noted. He is certainly not a good candidate for amiodarone in the setting of elevated transaminases and liver metastasis. (4) History of GI bleed: INR is below goal today. Proceed with heparin bridge. Coumadin 5 mg x 1 now, 4 mg during tomorrow 03/18/2019. Monitor INR with caution. no clinical evidence of bleeding at present. Subjective Chief complaint: Follow-up, atrial flutter, tachycardia Subjective: Patient notes feeling relatively well at rest. He is aware that his heart rate has been elevated this morning because he is watching it on his wristwatch monitor. Last evening, atrial flutter in the range of 80 bpm was present on oral metoprolol and oral diltiazem. As of 5 AM this morning with the patient still sleeping, and his rate was still controlled, however since waking this morning, the ventricular rates have been elevated in the range of 140 bpm. The most recent vital signs entered at 8 AM include a heart rate of 59, but this is an error, because on telemetry he is persistently been in the range of 140s. EKG performed this morning 03/17/2019 revealed atrial flutter with variable AV conduction at 92 bpm. Review of Systems Review of Systems: All systems reviewed & are unremarkable except as noted in HPI & below Physical Exam Physical Exam: Temp Pulse Resp BP Pulse Ox 37.3 C 140 bpm As entered by Dr. Booker 16 131/80 98 03/17/19 07:37 03/17/19 07:37 03/17/19 07:37 03/17/19 07:37 03/17/19 08:00 Constitutional: WD/WN, vitals as above Respiratory: normal respiratory effort, lungs clear to auscultation Cardiovascular: Rate/Rhythm: + tachycardic and + irregularly irregular Heart Sounds: no murmur Vessels: no JVD Extremities: no edema Gastrointestinal (Abdomen): normal bowel sounds, soft, nontender, no hepatosplenomegaly Neurologic: PERRL, EOMI, accommodation nl, no face palsy, no dysarthria
[2019-03-17] MEDS: Heparin Adult STANDARD Wt-Based Dextrose 5% 25,000 units/500 mL IV SCH (10:50)
--- NOTE | 2019-03-17 10:53 | Emergency Department Note ---
Entered by Erasmo Garcia acting as a scribe for Migdalia Byrd DO History of Present Illness General Chief complaint: Shortness of Breath/Dyspnea Stated complaint: SOB, LETHARGY, REFERRED BY DR. KRAFT Time Seen by Provider: 03/15/19 15:59 Source: patient History of Present Illness Provider complaint: SOB Onset (ago): hour(s) Location: chest Relieved By: + none Exacerbated By: + movement Associated symptoms: + other (dizziness); no nausea/vomiting The patient is a 68 year old male with a history of A fib, HTN, and GERD who p resents to the Emergency Room with complaints of SOB and feeling lethargic that began upon waking up, several hours ago. The patient states that he was recently admitted to [facility] several days ago due to coughing up blood, feeling tired, among other things. Pt has a hx of a.fib and flutter and has had a Watchman procedure. The patient notes that he was released yesterday from [facility] and felt great. He reports that when he woke up this morning, several hours ago, he "felt bad again" complaining of SOB and feeling lethargic. He states he called his doctor who advised him to return to the Emergency Department. He adds that with exertion, he notices his SOB is worse. He adds that he also had episodes of dizziness and a cough. The patient denies nausea/vomiting. The patient also adds that he is currently taking Coumadin. Denies trauma. Home Medications Home Medications Medication Instructions Recorded Confirmed Type Centrum Silver 1 tab PO DAILY 07/04/18 03/15/19 History amiloride 5 mg PO QAM 07/04/18 03/15/19 History amlodipine 10 mg PO QAM 07/04/18 03/15/19 History losartan 100 mg PO QAM 07/04/18 03/15/19 History metoprolol tartrate 50 mg PO AMPM 07/04/18 03/15/19 History potassium chloride 20 meq PO QAM 07/04/18 03/15/19 History ranitidine HCl 150 mg PO QPM 07/04/18 03/15/19 History amoxicillin 4 cap PO UD PRN 01/09/19 03/15/19 History cholecalciferol (vitamin D3) 400 unit PO DAILY 01/09/19 03/15/19 History [Vitamin D3] loratadine 10 mg PO DAILY PRN 01/09/19 03/15/19 History melatonin 2.5 mg PO HS 01/09/19 03/15/19 History metoprolol tartrate 25 mg PO . DAILY @ MIDDAY 01/09/19 03/15/19 History terazosin 4 mg PO HS 01/09/19 03/15/19 History bupropion HCl XL 150 mg 24 hr 150 mg PO QAM #30 tab 03/05/19 03/15/19 Rx tablet, extended release rucaparib 300 mg tablet 600 mg PO BID #180 tab 03/05/19 03/15/19 Rx ezetimibe 10 mg PO QPM 03/11/19 03/15/19 History warfarin 2.5 mg PO QAM 03/15/19 03/15/19 History Allergies Allergy/AdvReac Type Severity Reaction Status Date / Time atorvastatin Allergy Unknown "FUZZY Verified 03/15/19 16:25 THOUGHT PROCESS AND DEPRESSION LIKE SYMPTOMS" lisinopril Allergy Unknown SWELLING Verified 03/15/19 16:25 IN ANKLES [id number] Reductase Allergy Unknown Verified 03/15/19 16:25 Inhibitor Past Med/Surg History Medical History Acid reflux (Acute) Adjustment disorder (Acute) Arthritis (Acute) Atrial fibrillation (Acute) Hyperlipidemia (Acute) Community acquired pneumonia (Acute) HTN (hypertension) (Chronic) GERD (gastroesophageal reflux disease) (Chronic) Dyslipidemia (Chronic) MARTHA on CPAP (Chronic) History of prostate cancer (Chronic) Atrial flutter with rapid ventricular response (Acute) Anemia Anxiety Atrial flutter Cancer PROSTATE CANCER Diverticulosis GERD (gastroesophageal reflux disease) Hyperlipidemia Hypertension Kidney stones Osteoarthritis Sleep apnea CPAP Surgical History S/P prostatectomy (Chronic) S/P tonsillectomy (Chronic) Status post implantation of artificial urinary sphincter (Chronic) H/O lithotripsy (Chronic) Colon polyp REMOVED (BENING) VIA EGD H/O eye surgery RT EYE-LASER PROCEDURE History of colonoscopy History of esophagogastroduodenoscopy (EGD) History of implantation of artificial sphincter History of lithotripsy History of prostatectomy WITH RADIATION History of tonsillectomy History of tooth extraction Family History Brother Family history of diabetes mellitus Family hx of colon cancer Alcohol abuse Cancer Hypertension Lung disease Cardiac disorder Father Alcohol abuse Hypertension Cardiac disorder Cancer Unknown Myocardial infarction Prostate cancer Colorectal cancer Social History Preferred Language: [place] Communication Ability: Effective Beliefs That Will Affect Care: None Current Living Situation: Spouse Feels Safe at Home: Yes Smoking Status: Never smoker Second Hand Exposure: No Hx Alcohol Use: No Hx Substance Use: No Review of Systems See HPI for pertinent positives & negatives. and A total of 10 systems reviewed and were otherwise negative Physical Exam Vital Signs Vital Signs - 24 hr 03/15/19 15:10 03/15/19 15:28 03/15/19 15:30 Temperature 97.5 F L Temperature Source Oral Sepsis Recent Fever Within 48 Hours No Sepsis New/Unexplained Change in Mental Status No Sepsis Action Taken by Nursing No Action Required Pulse Rate 145 H 139 H Pulse Rate [Finger] Pulse Rate from SpO2 Sensor 140 H Pulse Rhythm Regular Pulse Strength Normal Respiratory Rate 22 17 Respiratory Effort / Characteristics Non-Labored Spontaneous Respiratory Depth Normal Respiratory Pattern Regular Blood Pressure 106/58 L 122/88 Blood Pressure [Right Arm] Blood Pressure Mean 74 99 Blood Pressure Mean [Right Arm] Blood Pressure Position Sitting Pulse Oximetry 97 97 98 Oxygen Delivery Method Room Air Room Air Room Air 03/15/19 15:42 03/15/19 15:45 03/15/19 15:50 Temperature Temperature Source Sepsis Recent Fever Within 48 Hours Sepsis New/Unexplained Change in Mental Status Sepsis Action Taken by Nursing Pulse Rate 139 H 139 H 139 H Pulse Rate [Finger] Pulse Rate from SpO2 Sensor 139 H 139 H 138 H Pulse Rhythm Pulse Strength Respiratory Rate 24 24 20 Respiratory Effort / Characteristics Respiratory Depth Respiratory Pattern Blood Pressure 136/92 Blood Pressure [Right Arm] Blood Pressure Mean 106 Blood Pressure Mean [Right Arm] Blood Pressure Position Pulse Oximetry 97 96 95 Oxygen Delivery Method Room Air Room Air Room Air 03/15/19 16:00 03/15/19 16:10 03/15/19 16:15 Temperature Temperature Source Sepsis Recent Fever Within 48 Hours Sepsis New/Unexplained Change in Mental Status Sepsis Action Taken by Nursing Pulse Rate 141 H 140 H 139 H Pulse Rate [Finger] Pulse Rate from SpO2 Sensor 141 H 140 H 139 H Pulse Rhythm Pulse Strength Respiratory Rate 16 20 26 H Respiratory Effort / Characteristics Respiratory Depth Respiratory Pattern Blood Pressure 124/99 125/94 Blood Pressure [Right Arm] Blood Pressure Mean 107 104 Blood Pressure Mean [Right Arm] Blood Pressure Position Pulse Oximetry 99 98 96 Oxygen Delivery Method Room Air Room Air Room Air 03/15/19 16:20 03/15/19 16:30 03/15/19 16:40 Temperature Temperature Source Sepsis Recent Fever Within 48 Hours Sepsis New/Unexplained Change in Mental Status Sepsis Action Taken by Nursing Pulse Rate 139 H 139 H 139 H Pulse Rate [Finger] Pulse Rate from SpO2 Sensor 140 H 139 H 139 H Pulse Rhythm Pulse Strength Respiratory Rate 23 24 22 Respiratory Effort / Characteristics Respiratory Depth Respiratory Pattern Blood Pressure 124/93 Blood Pressure [Right Arm] Blood Pressure Mean 103 Blood Pressure Mean [Right Arm] Blood Pressure Position Pulse Oximetry 96 97 96 Oxygen Delivery Method Room Air Room Air Room Air 03/15/19 16:45 03/15/19 17:12 03/15/19 17:15 Temperature Temperature Source Sepsis Recent Fever Within 48 Hours Sepsis New/Unexplained Change in Mental Status Sepsis Action Taken by Nursing Pulse Rate 138 H 138 H 140 H Pulse Rate [Finger] Pulse Rate from SpO2 Sensor 139 H 141 H 140 H Pulse Rhythm Pulse Strength Respiratory Rate 19 17 25 H Respiratory Effort / Characteristics Respiratory Depth Respiratory Pattern Blood Pressure 133/96 123/87 Blood Pressure [Right Arm] Blood Pressure Mean 108 99 Blood Pressure Mean [Right Arm] Blood Pressure Position Pulse Oximetry 95 97 98 Oxygen Delivery Method Room Air Room Air Room Air 03/15/19 17:20 03/15/19 17:30 03/15/19 17:40 Temperature Temperature Source Sepsis Recent Fever Within 48 Hours Sepsis New/Unexplained Change in Mental Status Sepsis Action Taken by Nursing Pulse Rate 140 H 140 H 139 H Pulse Rate [Finger] Pulse Rate from SpO2 Sensor 140 H 141 H 139 H Pulse Rhythm Pulse Strength Respiratory Rate 20 34 H 25 H Respiratory Effort / Characteristics Respiratory Depth Respiratory Pattern Blood Pressure 128/91 Blood Pressure [Right Arm] Blood Pressure Mean 103 Blood Pressure Mean [Right Arm] Blood Pressure Position Pulse Oximetry 98 98 96 Oxygen Delivery Method Room Air Room Air Room Air 03/15/19 17:45 03/15/19 17:57 Temperature Temperature Source Sepsis Recent Fever Within 48 Hours Sepsis New/Unexplained Change in Mental Status Sepsis Action Taken by Nursing Pulse Rate 139 H Pulse Rate [Finger] 139 H Pulse Rate from SpO2 Sensor 140 H Pulse Rhythm Pulse Strength Respiratory Rate 26 H 22 Respiratory Effort / Characteristics Respiratory Depth Respiratory Pattern Blood Pressure 132/93 Blood Pressure [Right Arm] 132/93 Blood Pressure Mean 106 Blood Pressure Mean [Right Arm] 106 Blood Pressure Position Pulse Oximetry 96 97 Oxygen Delivery Method Room Air Room Air GENERAL: alert, well appearing, well nourished, no distress, non-toxic EYE EXAM: normal conjunctiva, PERRL and EOM's grossly intact OROPHARYNX: no exudate, no erythema, lips, buccal mucosa, and tongue normal and mucous membranes are moist NECK: supple, no nuchal rigidity, no adenopathy, non-tender LUNGS: No wheezes, rhonchi, rales. Clear to auscultation. Normal chest wall mechanics HEART: tachycardic, irregular. no murmurs, S1 normal and S2 normal ABDOMEN: abdomen soft, non-tender, normo-active bowel sounds, no masses, no rebound or guarding. BACK: Back is symmetrical on inspection and there is no deformity, no midline tenderness, no CVA tenderness. SKIN: no rashes and no bruising, no petechiae UPPER EXTREMITIES: upper extremities are grossly normal. FROM, nml pulses b/l. LOWER EXTREMITIES:1 + lower extremity edema. FROM, nml pulses b/l. NEURO EXAM: Normal sensorium, cranial nerves II-XII grossly intact, normal speech, no gross weakness of arms, no gross weakness of legs. Course 1602: The patient was evaluated in room A11. A complete history and physical exam was performed. 1626: Review of EMR for recent admission. He is on abx for PNA, CXR today looks remarkably better than pervious. 1628: I discussed the patients case with Dr. Duarte-Cardiology, He is coming down to evaluate the patient. 1632: The patient looks more regular on telemetry, I updated the patient. 1717: Dr. Duarte at bedside, evaluating the patient. 1754: Dr. Duarte called back. The patient needs to be admitted. States pt should be on cardizem drip. 1812: I discussed the patient's case with Dr. Mccabe-Hospitalist. He will evaluate the patient for further management. Administered Medications Bupropion HCl (Wellbutrin-Xl) 150 mg PO QAM [facility] Stop: 04/15/19 08:59 Last Admin: 03/17/19 08:11 Dose: 150 mg Documented by: [id number] Admin: 03/16/19 08:22 Dose: 150 mg Documented by: [id number] Ezetimibe (Zetia) 10 mg PO QPM [facility] Stop: 04/14/19 21:30 Last Admin: 03/16/19 20:44 Dose: 10 mg Documented by: [id number] Admin: 03/15/19 22:22 Dose: 10 mg Documented by: [id number] Loratadine (Claritin) 10 mg PO DAILY PRN PRN Reason: allergies Stop: 04/14/19 21:30 Last Admin: 03/16/19 08:23 Dose: 10 mg Documented by: [id number] Metoprolol Tartrate (Lopressor) 50 mg PO BID [facility] Stop: 04/14/19 21:59 Last Admin: 03/17/19 08:11 Dose: 50 mg Documented by: [id number] Admin: 03/16/19 20:45 Dose: 50 mg Documented by: [id number] Admin: 03/16/19 08:25 Dose: 50 mg Documented by: [id number] Admin: 03/15/19 21:57 Dose: Not Given Documented by: [id number] Metoprolol Tartrate (Lopressor) 25 mg PO 1500 [facility] Stop: 04/15/19 14:59 Last Admin: 03/16/19 14:51 Dose: 25 mg Documented by: [id number] Potassium Chloride (Klor-Con M10) 20 meq PO QAM [facility] Stop: 04/15/19 08:59 Last Admin: 03/17/19 08:10 Dose: 20 meq Documented by: [id number] Admin: 03/16/19 08:23 Dose: 20 meq Documented by: [id number] Ranitidine HCl (Zantac) 150 mg PO QPM [facility] Stop: 04/14/19 21:30 Last Admin: 03/16/19 20:44 Dose: 150 mg Documented by: [id number] Admin: 03/15/19 22:22 Dose: 150 mg Documented by: [id number] Rucaparib (Rubraca) 2 ea PO BID [facility] Stop: 04/14/19 22:29 Last Admin: 03/17/19 08:11 Dose: 2 ea Documented by: [id number] Admin: 03/16/19 20:45 Dose: 2 ea Documented by: [id number] Admin: 03/16/19 08:24 Dose: 2 ea Documented by: [id number] Admin: 03/15/19 22:23 Dose: 2 ea Documented by: [id number] Terazosin HCl (Hytrin) 4 mg PO HS [facility] Stop: 04/14/19 21:30 Last Admin: 03/16/19 20:43 Dose: 4 mg Documented by: [id number] Admin: 03/15/19 22:21 Dose: 4 mg Documented by: [id number] Vitamin D (Vitamin D3) 400 units PO DAILY [facility] Stop: 04/15/19 08:59 Last Admin: 03/17/19 08:12 Dose: 400 units Documented by: [id number] Admin: 03/16/19 08:24 Dose: 400 units Documented by: [id number] Warfarin Sodium (Coumadin) 5 mg PO NOW ONE Stop: 03/17/19 11:01 Last Admin: 03/17/19 10:23 Dose: 5 mg Documented by: [id number] Discontinued Medications Cefuroxime Axetil (Ceftin) 500 mg PO BID [facility] Stop: 03/22/19 21:30 Last Admin: 03/15/19 21:58 Dose: Not Given Documented by: [id number] Diltiazem HCl (Cardizem) 10 mg IV NOW [facility] Stop: 03/15/19 17:27 Last Admin: 03/15/19 17:47 Dose: 10 mg Documented by: [id number] Cosigned by: [id number] Diltiazem HCl (Cardizem) 30 mg PO TID [facility] Stop: 04/15/19 13:59 Last Admin: 03/17/19 08:10 Dose: 30 mg Documented by: [id number] Admin: 03/16/19 20:45 Dose: 30 mg Documented by: [id number] Admin: 03/16/19 13:20 Dose: 30 mg Documented by: [id number] Diltiazem HCl 125 mg/ Dextrose 125 mls @ 5 mls/hr IV .Q24H [facility]; Protocol Stop: 04/14/19 17:29 Last Titration: 03/16/19 12:52 Dose: 0 mg/hr, 0 mls/hr Documented by: [id number] Admin: 03/16/19 08:41 Dose: 5 mg/hr, 5 mls/hr Documented by: [id number] Cosigned by: [id number] Titration: 03/16/19 08:41 Dose: 5 mg/hr, 5 mls/hr Documented by: [id number] Cosigned by: [id number] Titration: 03/16/19 00:56 Dose: 5 mg/hr, 5 mls/hr Documented by: [id number] Admin: 03/15/19 22:22 Dose: 15 mg/hr, 15 mls/hr Documented by: [id number] Cosigned by: [id number] Titration: 03/15/19 22:22 Dose: 15 mg/hr, 15 mls/hr Documented by: [id number] Cosigned by: [id number] Titration: 03/15/19 19:09 Dose: 15 mg/hr, 15 mls/hr Documented by: [id number] Titration: 03/15/19 18:28 Dose: 10 mg/hr, 10 mls/hr Documented by: [id number] Admin: 03/15/19 17:49 Dose: 5 mg/hr, 5 mls/hr Documented by: [id number] Cosigned by: [id number] Metoprolol Tartrate (Lopressor) Confirm Administered Dose 50 mg .ROUTE .STK-MED ONE Stop: 03/15/19 17:51 Last Admin: 03/15/19 17:56 Dose: 50 mg Documented by: [id number] Potassium Chloride (Klor-Con M20) 20 meq PO NOW ONE Stop: 03/16/19 10:01 Last Admin: 03/16/19 10:54 Dose: 20 meq Documented by: [id number] Potassium Chloride (Klor-Con M20) 20 meq PO NOW ONE Stop: 03/16/19 12:16 Last Admin: 03/16/19 13:20 Dose: 20 meq Documented by: [id number] Warfarin Sodium (Coumadin) 2.5 mg PO DAILY@1600 [facility] Stop: 04/15/19 15:59 Last Admin: 03/16/19 16:28 Dose: 2.5 mg Documented by: [id number] Medical Decision Making Differential Diagnosis Differential diagnosis: Etiologies such as infections, reactive airway disease, pneumonia, pneumothorax, COPD, CHF, cardiac ischemia, pulmonary embolism, musculoskeletal, gastrointestinal, as well as others were entertained. Medical Records Attestation: I reviewed the patient's medical records. Home Medications Current Medication List: was personally reviewed by me Laboratory Data Attestation: I reviewed the patient's lab results. Result diagrams: 03/17/19 05:54 03/17/19 05:54 Lab Results 03/15/19 03/15/19 03/15/19 Range/Units 15:40 15:40 15:40 WBC 6.63 (4.8-10.8) K/uL RBC 3.78 L (4.7-6.1) M/uL Hgb 11.7 L (14.0-18.0) g/dL Hct 35.0 L (42-52) % MCV 92.6 (80-100) fL MCH 31.0 (25-34) pg MCHC 33.4 (32-36) g/dL RDW Std Deviation 47.1 H (36.4-46.3) fL RDW Coeff of Lauren 14.0 (11.5-14.5) % Plt Count 231 (130-400) K/uL MPV 11.3 H (7.4-10.4) fL Immature Gran % (Auto) 0.5 % Neut % (Auto) 73.2 % Lymph % (Auto) 13.7 % [place] % (Auto) 6.3 % Eos % (Auto) 5.4 % Baso % (Auto) 0.9 % Immature Gran # (Auto) 0.03 H (0.00-0.02) K/uL Neut # (Auto) 4.85 (1.4-6.5) K/uL Lymph # (Auto) 0.91 L (1.2-3.4) K/uL [place] # (Auto) 0.42 (0.11-0.59) K/uL Eos # (Auto) 0.36 (0-0.5) K/uL Baso # (Auto) 0.06 (0-0.2) K/uL PT 20.9 H (9.0-12.0) Seconds INR 2.2 H (0.9-1.1) APTT 32.9 H (21.0-31.0) Seconds PTT Ratio 1.2 Sodium 144 (136-145) mmol/L Potassium 4.2 D (3.5-5.1) mmol/L Chloride 108 H (98-107) mmol/L Carbon Dioxide 27 (21-32) mmol/L Anion Gap 8.0 (3-11) BUN 21 H (7-18) mg/dl Creatinine 1.52 H (0.6-1.4) mg/dl Est Cr Clr Drug Dosing 55.3 ml/min Est GFR ( Amer) 54.6 Est GFR (Non-Af Amer) 47.1 BUN/Creatinine Ratio 13.8 (10-20) Glucose 127 H (70-99) mg/dl Calcium 9.7 (8.5-10.1) mg/dl Total Bilirubin 0.5 (0.2-1) mg/dl AST 83 H (15-37) U/L ALT 131 H (12-78) U/L Alkaline Phosphatase 111 (45-117) U/L Troponin I < 0.015 (0-0.045) ng/ml Total Protein 7.8 (6.4-8.2) gm/dl Albumin 3.6 (3.4-5.0) gm/dl Globulin 4.2 H (2.5-4.0) gm/dl Albumin/Globulin Ratio 0.9 (0.9-2) Imaging Data Radiologist's Impression: Radiology results as stated below per my review and the radiologist's interpretation: XR chest 1V portable HISTORY: Shortness of breath. COMPARISON: Chest 03/11/2019. FINDINGS: Improvement in the interstitial thickening suggestive of resolving pulmonary edema. No pneumothorax. Trace right pleural effusion persists. The heart remains mildly enlarged. No new focal lung consolidation. IMPRESSION: Near complete resolution of the pulmonary edema. Trace right pleural effusion persists. Electronically signed by: Daniel Guevara M.D. 03/15/2019 4:16 PM ECG Data Attestation: I personally reviewed and interpreted this ECG as follows: Indication: SOB/dyspnea Rate (beats per minute): 140 Rhythm: sinus tachycardia Findings: + other (nml axis and intervals); no acute ischemic change Blood Pressure Blood Pressure Findings: Normal blood pressure MDM Narrative Pt here well appearing at rest with complicated medical history and recent admission. Pt now presenting with increased symptoms again and HR 140's that appears on telemetry consistent with a.fib despite EKG appearing more like sinus tachycardia initially. INR therapeutic, I do not suspect PE contributing to symptoms. CXR appears improved compared to prior and pulm edema and pneumonia appear to be improved. Pt is still taking antibiotics. Given recent admission and pt's report that he had contacted cardiology prior to coming, I contacted the documentation coordinator sugar laboratory assistant who came and saw the patient in the ER. He recommended diltiazem drip and re-admission to the hospital. Pt updated on all results and in agreement with plan. I do not suspect other acute vascular pathology. Impression & Plan Atrial fibrillation, Shortness of breath, Fatigue Discharge Plan Visit Data *Final* Discharge Date/Time: 03/15/19 21:01 Chief Complaint: Shortness of Breath/Dyspnea Stated Complaint: SOB, LETHARGY, REFERRED BY DR. KRAFT ED Provider: Migdalia Byrd Discharge Problem: Atrial fibrillation, Shortness of breath, Fatigue Patient Disposition: Admitted As Inpatient Condition: Good Discharge Instructions Interventions: ED Discharge Assessment Last Done: 03/15/19 21:01 Discharge Problem: Atrial fibrillation Qualifiers: Atrial fibrillation type: persistent Qualified Code(s): I48.1 - Persistent atrial fibrillation Fatigue Qualifiers: Fatigue type: unspecified Qualified Code(s): R53.83 - Other fatigue The scribe's documentation has been prepared under my direction and personally reviewed by me in its entirety. I confirm that the note above accurately reflects all work, treatment, procedures, and medical decision making performed by me.
[2019-03-17] MEDS ORDERED: WARFARIN SOD 5 MG TAB PO ONE (11:00)
[2019-03-17] MEDS: dilTIAZem HCl 60 MG TAB PO SCH ×2 (13:18→20:56)
[2019-03-17] MEDS: POLYETHYLENE (MIRALAX) 17 GM PACK PO SCH (13:19)
[2019-03-17] MEDS: METOPROLOL TARTRATE 25 MG TAB PO SCH (16:34)
[2019-03-17 19:02] LABS: Partial Thromboplastin Ratio 1.8
[2019-03-17 19:03] LABS: Partial Thromboplastin Time 48.3 Seconds (21.0-31.0)
[2019-03-17] MEDS: EZETIMIBE 10 MG TABLET PO SCH (20:57)
[2019-03-17] MEDS: TERAZOSIN HCL 1 MG CAP PO SCH (20:58)
[2019-03-18] MEDS: Heparin Adult STANDARD Wt-Based Dextrose 5% 25,000 units/500 mL IV SCH ×2 (03:10→20:30)
[2019-03-18 07:09] LABS: Hematocrit (blood only) 32.9 % (42-52); Hemoglobin 11.3 g/dL (14.0-18.0); Mean Corpuscular Hgb Conc 34.3 g/dL (32-36); Mean Corpuscular Volume 92.9 fL (80-100); Platelet Count 220 K/uL (130-400); RDW Standard Deviation 47.1 fL (36.4-46.3); Red Blood Count 3.54 M/uL (4.7-6.1)
[2019-03-18 07:31] LABS: INR 1.9 (0.9-1.1); Partial Thromboplastin Ratio 2.1; Prothrombin Time 18.7 Seconds (9.0-12.0)
[2019-03-18 07:34] LABS: BUN Creatinine Ratio 11.6 (10-20); Calcium 8.9 mg/dl (8.5-10.1); Creatinine Clr Calc Pharmacy 55.3 ml/min; Est GFR (African American) 54.6; Est GFR (Non-African American) 47.1; Potassium 3.5 mmol/L (3.5-5.1)
[2019-03-18] MEDS: METOPROLOL TARTRATE 50 MG TAB PO SCH ×2 (08:46→20:33)
[2019-03-18] MEDS: POLYETHYLENE (MIRALAX) 17 GM PACK PO SCH (08:46)
[2019-03-18] MEDS: dilTIAZem HCl 60 MG TAB PO SCH ×3 (08:46→20:33)
[2019-03-18] MEDS: CHOLECALCIFEROL (VITAMIN D) 400 UNITS TABLET PO SCH (08:46)
[2019-03-18] MEDS: RUCAPARIB CAMSYLATE PO SCH ×2 (08:47→20:32)
[2019-03-18] MEDS: BuPROPion XL 150 MG TABCR PO SCH (08:47)
[2019-03-18] MEDS: POTASSIUM CHLORIDE 10 MEQ TABCR PO SCH (08:47)
[2019-03-18] MEDS ORDERED: POTASSIUM CHLORIDE 20 MEQ TABCR PO STA (09:02)
--- NOTE | 2019-03-18 09:41 | Family Medicine Progress Note ---
Date of Service March 18, 2019 Assessment & Plan (1) Atrial flutter: Mr. Suresh is a very pleasant 68 year old male with a past medical history significant for metastatic prostate cancer, atrial flutter with RVR, diverticulosis, hypertension, hyperlipidemia, GERD, MARTHA, anxiety, GI bleed, o steoarthritis who presented to the emergency department due to palpitations and shortness of breath that began at 7AM on the day of his admission. Upon presentation to [facility], he was found to be in atrial flutter. He was seen by Dr. Duarte, cardiology, who started him on a diltiazem drip. Atrial flutter Patient has a history of paroxysmal atrial fibrillation/flutter, normally follows with Dr. Martinez. S/p Watchman procedure in December 2018 - patient is on Coumadin as he has a small clot on his device. Given this, cardioversion is contraindicated -On admission, he was placed on a diltiazem drip. He was then transitioned to oral diltiazem on 03/16 -Cardiology following, thank you for recommendations -> Unable to start antiarrhythmics given QTC -> Continue metoprolol, added Cardizem 60 mg p.o. 3 times daily -> despite treatment with cardizem and metoprolol, patient's rates were still uncontrolled -> IV digoxin bolus initiated today - will transition to oral digoxin tomorrow -> Not a good candidate for amiodarone given elevated transaminases and liver mets -INR remains subtherapeutic at 1.9 - given 5mg of warfarin yesterday, 4mg to be administered today. Home regimen was 2.5mg daily -> remains on heparin drip whilst subtherapeutic -suspect difficult to control rates are secondary to resolving pneumonia -TSH checked and normal at 1.2 Hypertension -Patient normally takes amiloride, amlodipine, hydralazine, losartan and metoprolol at home -Can resume medications one by one if patient becomes hypertensive. Will hold for now as patient's medication regimen is being adjusted & pt is not hypertensive Community acquired pneumonia -resolved -Completed course of antibiotics -Chest x-ray looks improved from prior admission, no need for further abx Metastatic prostate cancer -S/P radical prostatectomy -Follows with [facility], on rucaparib Diastolic CHF -Echo on 03/12 showed normal left ventricular systolic function, however patient has grade 1 diastolic dysfunction -Patient appears euvolemic at this time Anemia -Stable, hemoglobin 11.3 today Elevated creatinine -Creatinine 1.52, no history of renal disease - may be close to baseline value -Hold home losartan, avoid nephrotoxic agents -Daily BMP Transaminitis -Patient with stable transaminases - AST 73 ALT 112 -Patient with known metastatic disease to liver, with small amount of ascites -Follow LFTs Hyperlipidemia -Continue daily ezetimibe GERD -Continue daily Zantac MARTHA -Continue nightly CPAP Anxiety -Continue home bupropion CODE STATUS: Full code DVT prophylaxis: Coumadin, heparin drip Disposition: remains on telemetry pending control of rate Supervising Physician Co-Signing Physician Notes I personally examined the patient and verified all shetty points of history and exam, discussed case, and agree with decision making with Dr Emery. feeling good no complaints. doesn't really feel any fluttering/palpitations. m aybe the slightest bit of DELEON. notes that afib/flutter wasn't typically this hard to control until recently. vitals noted nad breathing unlabored no pallor or icterus afib/flutter - rate control improving but was still inappropriately fast wtih activity atrial appendage clot - anticoagulation otherwise as above Subjective Mr. Suresh reports that he feels fine today. He states he has not been up/exerted himself at all, but at rest, he feels fine. He denies chest pain, shortness of breath, dizziness/lightheadedness, nausea or vomiting. He states he knows his heart rate is increased, but he does not feel it at all. He is anxious for discharge. Review of Systems Constitutional: no fever, no chills and no fatigue Respiratory: no cough, no chest congestion, no dyspnea and no wheezing Cardiovascular: no chest pain, no syncope, no edema and no calf pain Gastrointestinal: no abdominal pain, no nausea and no vomiting Physical Exam Constitutional: WD/WN, vitals as above cooperative and comfortable Cardiovascular: Rate/Rhythm: + tachycardic and + irregularly irregular Heart Sounds: no murmur Extremities: no calf tenderness and no edema Gastrointestinal (Abdomen): normal bowel sounds, soft, nontender, no hepatosplenomegaly Skin: no rashes, warm and dry Psychiatric: A+Ox3, euthymic affect Results & Data Vital Signs (Past 12 Hours) Vital Signs Temp Pulse Resp BP Pulse Ox 03/18/19 07:02 36.9 C 88 18 141/88 H 97 03/18/19 03:15 36.8 C 89 16 140/85 95 03/17/19 22:59 36.9 C 97 H 16 125/85 97 PG Care Time/CCT Total # of Minutes Spent Total Time Spent with Patient: Total time spent is greater than 50% in coordination of care (as documented) at patient's floor/unit and/or counseling patient: Resident Activity Tracking Resident Involvement: Resident Care Provided Care Provided: Adult Hospital Medicine
--- NOTE | 2019-03-18 09:41 | Cardiology Progress Note ---
Date of Service March 18, 2019 Assessment & Plan (1) Atrial flutter: Patient with atrial flutter since at least 03/15/2019, when this was captured on outpatient follow-up visit, and he was referred for repeat emergency department/inpatient evaluation. EKG consistent with what seems like right-sided atrial flutter given negative access of the flutter waves in the inferior leads, and upright axis of the flutter waves in V1 to V3. He also has a history of paroxysmal atrial fibrillation. Zio patch registered nurse cardiac performed in November, revealed paroxysmal atrial fibrillation with burden in the range of 70%. When he was in sinus rhythm the average rate was in the mid 50 bpm range, while in atrial fibrillation his average rate was in the range of 100 1214 bpm during the monitor. Rate control-continue metoprolol 50 mg twice a day, with a 25 mg dose midday. Continue short acting diltiazem 60 mg 3 times daily (new this admission) Start digoxin, loaded IV today 0.25 mg now and at 1600, followed by an 0.125 mg orally tomorrow. Stroke prophylaxis-INR remains below goal at 1.9, up from 1.7 yesterday. Prior to hospital dose of Coumadin 2.5 mg daily was increased receiving 5 mg yesterday, and patient is to receive 4 mg today. Need to be cautious with his anticoagulation given history of gastrointestinal bleeding. Will discuss updates with pt's EP provider at [facility]. The patient has been on anticoagulation only a brief time, about 2 weeks of therapeutic anticoagulation since diagnosis of thrombus adherent to the surface of the watchman left atrial appendage occlusion device on 02/19/2019 which had prompted transition from Eliquis to Coumadin at that time. If antiarrhythmic therapy such as sotalol, dofetilide, or amiodarone consider, will need to keep his creatinine and liver function tests in mind. His creatinine is trended up to 1.5 today, and his function tests are mildly elevated. He does have a history of chronic kidney stones with mild hydronephrosis on recent MRI of the abdomen performed at [facility], so he may be prone to recurrent acute renal insufficiency, and therefore dosing of a medication such as sotalol or dofetilide would be challenging as he would be at risk for decreased excretion if he had an abrupt change in his kidney function. (2) Left atrial thrombus: Left atrial appendage thrombus noted on transesophageal echocardiogram performed 6 weeks after the left atrial appendage occlusion device. The patient had been on Eliquis, and this was interrupted for a few days for a liver biopsy prior to the transesophageal echocardiogram, and then was interrupted again for colonoscopy EGD shortly after the transesophageal echocardiogram which have been performed on 02/19/2019. He was subsequently transitioned to Coumadin, and had been therapeutic for 2 weeks, until his INR was below goal 03/18/2019. Repeat transesophageal echocardiogram is tentatively planned after 3 months of anticoagulation in mid-May, but the development of atrial flutter may change the timing of this. (3) Abnormal transaminases: Patient's AST was 58 units/L, ALT 102 units/L yesterday 03/17/2019. Repeat hepatic function panel has been added to today's Labs. TSH within normal limits. (4) 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: Monitor LFTs as noted above. Patient is followed at [facility], and is on a clinical trial medication. Subjective Chief complaint: Follow-up elevated heart rate, dizziness and transient heavy perspiration this morning Subjective: The patient is noted to have once again have atrial flutter with rapid ventricular response in the range of 140 bpm this morning. His ventricular rates were well controlled throughout the afternoon yesterday for the most part in the 70 to 80 bpm range at rest. They were controlled with sleep as well, but elevated this morning after he got up out of bed to do his morning routine, and currently he remains tachycardic despite just sitting in bed. While not in acute distress, he does feel poorly and is not himself. CPAP was administered overnight last night. He remains on a heparin infusion, INR which had been 1.7 yesterday is 1.9 today. Review of Systems Review of Systems: All systems reviewed & are unremarkable except as noted in HPI & below Physical Exam Physical Exam: Temp Pulse Resp BP Pulse Ox 36.9 C 144 beats /m 18 141/88 H 97 03/18/19 07:02 03/18/19 07:02 03/18/19 07:02 03/18/19 07:02 03/18/19 07:02 Constitutional: no acute distress Respiratory: normal respiratory effort, lungs clear to auscultation Cardiovascular: Rate/Rhythm: + tachycardic Heart Sounds: no murmur Vessels: no JVD Extremities: no edema Gastrointestinal (Abdomen): normal bowel sounds, soft, nontender, no hepatosplenomegaly Skin: no rashes, warm and dry no rashes Neurologic: PERRL, EOMI, accommodation nl, no face palsy, no dysarthria moves all extremities; no focal motor deficits Results & Data Vital Signs (Past 12 Hours) Vital Signs Temp Pulse Resp BP Pulse Ox 03/18/19 07:02 36.9 C 88 18 141/88 H 97 03/18/19 03:15 36.8 C 89 16 140/85 95 03/17/19 22:59 36.9 C 97 H 16 125/85 97 Laboratory Results INR today 03/18/2019, 1.9 PTT 57 seconds Coagulation 03/17/19 03/18/19 03/18/19 Range/Units 18:30 06:43 06:43 PT Cancelled 18.7 H APTT 48.3 H* 57.0 H* (21.0-31.0) Seconds CBC 03/18/19 Range/Units 06:43 WBC 6.20 (4.8-10.8) K/uL RBC 3.54 L (4.7-6.1) M/uL Hgb 11.3 L (14.0-18.0) g/dL Hct 32.9 L (42-52) % Plt Count 220 (130-400) K/uL Comprehensive Metabolic Panel 03/18/19 Range/Units 06:43 Sodium 145 (136-145) mmol/L Potassium 3.5 (3.5-5.1) mmol/L Chloride 110 H (98-107) mmol/L Carbon Dioxide 26 (21-32) mmol/L BUN 18 (7-18) mg/dl Creatinine 1.52 H (0.6-1.4) mg/dl Glucose 95 (70-99) mg/dl Calcium 8.9 (8.5-10.1) mg/dl Intake and Output 03/17/19 03/18/19 03/18/19 22:59 06:59 14:59 Intake Total 1136.833 / 1481.449 344.616 / 1481.449 Balance 1136.833 / 1481.449 344.616 / 1481.449 Intake: IV 236.833 / 581.449 344.616 / 581.449 HEPARIN SODIUM/DEXTROSE 25,000 236.833 / 581.449 344.616 / 581.449 units In 500 ml @ 1,450 UNITS/ HR 29 mls/hr IV .[id number] [facility] Rx #:[id number] Oral 900 / 900 Other: # Unmeasured Voids 3 2 Weight 95 kg Medications Administered Current Inpatient Medications Acetaminophen (Tylenol) 650 mg PO Q4H PRN PRN Reason: Pain or Fever Stop: 04/14/19 21:30 Bupropion HCl (Wellbutrin-Xl) 150 mg PO QAM [facility] Stop: 04/15/19 08:59 Last Admin: 03/18/19 08:47 Dose: 150 mg Documented by: Digoxin (Lanoxin) 0.125 mg PO DAILY@1600 [facility] Stop: 04/18/19 15:59 Diltiazem HCl (Cardizem) 60 mg PO TID [facility] Stop: 04/16/19 13:59 Last Admin: 03/18/19 08:46 Dose: 60 mg Documented by: Ezetimibe (Zetia) 10 mg PO QPM [facility] Stop: 04/14/19 21:30 Last Admin: 03/17/19 20:57 Dose: 10 mg Documented by: Heparin Sodium/Dextrose (Heparin Sodium/Dextrose) 25,000 units in 500 mls @ 29 mls/hr IV .[id number] [facility]; Protocol Stop: 04/16/19 10:29 Last Titration: 03/18/19 06:53 Dose: 1,450 units/hr, 29 mls/hr Documented by: Digoxin 250 mcg/ Syringe 10 mls @ 2 mls/min IV ONE ONE Stop: 03/18/19 09:49 Digoxin 250 mcg/ Syringe 10 mls @ 2 mls/min IV ONE [facility] Stop: 04/17/19 15:59 Loratadine (Claritin) 10 mg PO DAILY PRN PRN Reason: allergies Stop: 04/14/19 21:30 Last Admin: 03/16/19 08:23 Dose: 10 mg Documented by: Metoprolol Tartrate (Lopressor) 50 mg PO BID [facility] Stop: 04/14/19 21:59 Last Admin: 03/18/19 08:46 Dose: 50 mg Documented by: Metoprolol Tartrate (Lopressor) 25 mg PO 1500 [facility] Stop: 04/15/19 14:59 Last Admin: 03/17/19 16:34 Dose: 25 mg Documented by: Polyethylene Glycol (Miralax Powder Packet) 17 gm PO DAILY [facility] Stop: 04/16/19 12:59 Last Admin: 03/18/19 08:46 Dose: 17 gm Documented by: Potassium Chloride (Klor-Con M20) 20 meq PO QAM [facility] Stop: 04/18/19 08:59 Potassium Chloride (Klor-Con M10) 10 meq PO ONE ONE Stop: 03/18/19 09:46 Ranitidine HCl (Zantac) 150 mg PO QPM [facility] Stop: 04/14/19 21:30 Last Admin: 03/17/19 20:58 Dose: 150 mg Documented by: Rucaparib (Rubraca) 2 ea PO BID [facility] Stop: 04/14/19 22:29 Last Admin: 03/18/19 08:47 Dose: 2 ea Documented by: Terazosin HCl (Hytrin) 4 mg PO HS [facility] Stop: 04/14/19 21:30 Last Admin: 03/17/19 20:58 Dose: 4 mg Documented by: Vitamin D (Vitamin D3) 400 units PO DAILY [facility] Stop: 04/15/19 08:59 Last Admin: 03/18/19 08:46 Dose: 400 units Documented by: Warfarin Sodium (Coumadin) 4 mg PO DAILY@1600 [facility] Stop: 04/17/19 15:59
[2019-03-18] MEDS ORDERED: SPIRONOLACTONE 25 MG TAB PO SCH (09:45)
[2019-03-18] MEDS ORDERED: POTASSIUM CHLORIDE 10 MEQ TABCR PO ONE (09:45)
[2019-03-18] MEDS ORDERED: DIGOXIN 250 MCG in SYRINGE 9 ML IV ONE (09:45)
[2019-03-18 10:13] LABS: Albumin Level 3.3 gm/dl (3.4-5.0); Bilirubin Direct 0.1 mg/dl (0-0.2); Bilirubin,Total 0.5 mg/dl (0.2-1); Total Protein 6.8 gm/dl (6.4-8.2)
[2019-03-18] MEDS: METOPROLOL TARTRATE 25 MG TAB PO SCH (14:26)
[2019-03-18] MEDS ORDERED: DIGOXIN 250 MCG in SYRINGE 9 ML IV SCH (16:00)
[2019-03-18] MEDS: WARFARIN SOD 4 MG TAB PO SCH (16:40)
[2019-03-18] MEDS: EZETIMIBE 10 MG TABLET PO SCH (20:33)
[2019-03-18] MEDS: TERAZOSIN HCL 1 MG CAP PO SCH (20:34)
[2019-03-19 06:17] LABS: INR 2.1 (0.9-1.1); Prothrombin Time 20.4 Seconds (9.0-12.0)
[2019-03-19 06:32] LABS: BUN Creatinine Ratio 11.5 (10-20); Calcium 9.1 mg/dl (8.5-10.1); Creatinine Clr Calc Pharmacy 55.9 ml/min; Est GFR (Non-African American) 47.4; Potassium 3.8 mmol/L (3.5-5.1)
[2019-03-19 06:50] LABS: Partial Thromboplastin Ratio 2.6
[2019-03-19 07:06] LABS: Partial Thromboplastin Time 70.6 Seconds (21.0-31.0)
--- NOTE | 2019-03-19 07:34 | Discharge Summary ---
Date of Service March 19, 2019 Admission HPI Per Admitting Provider Mr. Suresh is a very pleasant 68 year old male with a past medical history significant for metastatic prostate cancer, atrial flutter with RVR, diverticulosis, hypertension, hyperlipidemia, GERD, MARTHA, anxiety, GI bleed, osteoarthritis who presented to the emergency department due to palpitations and shortness of breath that began at 7AM on the day of his admission. Of note, the patient was recently discharged to [facility] on 03/14 after being treated for pulmonary edema and pneumonia. He states that he felt fantastic after he was discharged, however woke up at 7 AM feeling fatigued, lightheaded, with palpitations and shortness of breath. He states that he checked his Fitbit, which showed that his heart rate was in the 140s. He states he normally runs in the 60s, and that this is a big change for him. He denies chest pain, dizziness, fever, chills. He denies any further episodes of hemoptysis, which is what prompted him to present to the emergency department on his first admission. With regards to his prior hospital admission, he was admitted from 03/11 to 03/14 for hemoptysis and hypoxia. He was treated for pneumonia as well as CHF. He was diuresed with IV Lasix, and his pneumonia was treated with ceftriaxone and azithromycin - transitioned to cefuroxime on discharge. He was able to be weaned off of oxygen prior to his discharge. His admission was also notable for atrial flutter, that did not respond to IV metoprolol. He was started on IV diltiazem for rate control, and eventually spontaneously converted to normal sinus rhythm. He was discharged on his regular dose of metoprolol. With his history of atrial flutter, he had a watchman procedure done in December 2018. He is still on Coumadin as he apparently has a small clot on his device. Regarding his metastatic prostate cancer, he had a radical prostatectomy, and follows with oncology at [facility]. He is on rucaparib as part of a clinical trial. PMHx: Metastatic prostate cancer, atrial flutter, hypertension, hyperlipidemia, GERD, MARTHA, anxiety, prior GI bleed (2012), osteoarthritis PSHx: Radical prostatectomy, implantation of artificial urinary sphincter, cataract surgery SHx: Lives at home with his . Has never smoked. Rare alcohol use. No history of recreational drug abuse. Admission Exam Per Admitting Provider Constitutional: WD/WN, vitals as above cooperative and comfortable Eyes: PERRL, conjunctivae normal, anicteric sclerae ENMT: external ear and nose normal, oropharynx normal Respiratory: normal respiratory effort, lungs clear to auscultation Cardiovascular: Rate/Rhythm: + tachycardic and + irregularly irregular Heart Sounds: no murmur Extremities: no calf tenderness and no edema Gastrointestinal (Abdomen): Inspection/Auscultation: abdomen normal to inspection Percussion/Palpation: abdomen soft; abdomen nontender (Nontender, however he reports mild discomfort throughout the lower abdomen. Patient states that this is not new), no guarding and abdomen not rigid Skin: no rashes, warm and dry Neurologic: 5 out of 5 strength in upper and lower extremities. Sensation intact in upper and lower extremities. Psychiatric: A+Ox3, euthymic affect Principal Diagnosis Atrial Flutter Discharge Exam Constitutional WD/WN, vitals as above cooperative and comfortable Eyes PERRL, conjunctivae normal, anicteric sclerae Respiratory normal respiratory effort, lungs clear to auscultation Cardiovascular Rate/Rhythm: regular rate and + irregularly irregular Extremities: no calf tenderness and no pedal edema Gastrointestinal (Abdomen) normal bowel sounds, soft, nontender, no hepatosplenomegaly Skin no rashes, warm and dry Psychiatric A+Ox3, euthymic affect Discharge Data Allergies Allergy/AdvReac Type Severity Reaction Status Date / Time atorvastatin Allergy Unknown "FUZZY Verified 03/15/19 16:25 THOUGHT PROCESS AND DEPRESSION LIKE SYMPTOMS" lisinopril Allergy Unknown SWELLING Verified 03/15/19 16:25 IN ANKLES Huvkahd-Kth-Aun Reductase Allergy Unknown Verified 03/15/19 16:25 Inhibitor Consultations 03/15/19 17:54 Consult Cardiology Stat 03/15/19 18:23 ED Decision to Admit Stat Hospital Course (1) Atrial flutter: Mr. Suresh is a very pleasant 68 year old male with a past medical history significant for metastatic prostate cancer, atrial flutter with RVR, diverticulosis, hypertension, hyperlipidemia, GERD, MARTHA, anxiety, GI bleed, osteoarthritis who presented to the emergency department due to palpitations and shortness of breath that began at 7AM on the day of his admission. Upon presentation to [facility], he was found to be in atrial flutter. He was seen by Dr. Duarte, cardiology, who started him on a diltiazem drip. Atrial flutter Patient has a history of paroxysmal atrial fibrillation/flutter, normally follows with Dr. Martinez. S/p Watchman procedure in December 2018 - patient is on Coumadin as he has a small clot on his device. Given this, cardioversion is contraindicated -On admission, he was placed on a diltiazem drip. He was then transitioned to oral diltiazem on 03/16 -Cardiology following, thank you for recommendations -> Unable to start antiarrhythmics given QTC -> Continue metoprolol, added Cardizem 180mg daily -> despite treatment with cardizem and metoprolol, patient's rates were still uncontrolled -> IV digoxin bolus initiated on 03/18, and patient was transitioned to oral digoxin on discharge -> Not a good candidate for amiodarone given elevated transaminases and liver mets -INR was subtherapeutic whilst in hospital - pt was bridged with heparin and given 5mg of warfarin on 03/17, and 4mg on 03/18 and 03/19. Home regimen was 2.5mg daily -INR 2.1 on d/c, recommend recheck on 03/21 or 03/22 -suspect difficult to control rates are secondary to resolving pneumonia -TSH checked and normal at 1.2 Hypertension -Patient normally takes amiloride, amlodipine, hydralazine, losartan at home -all antihypertensives were held given addition of diltiazem -Can resume medications one by one if patient becomes hypertensive. Will hold for now as patient's BP have been ranging from 109/62 to 151/72 at the highest Community acquired pneumonia - resolved -Completed course of antibiotics -Chest x-ray looks improved from prior admission, no need for further abx Metastatic prostate cancer -S/P radical prostatectomy -Follows with [facility], on rucaparib Diastolic CHF -Echo on 03/12 showed normal left ventricular systolic function, however patient has grade 1 diastolic dysfunction -Patient appears euvolemic at this time Anemia -Stable, hemoglobin 11.3 on discharge Elevated creatinine -Creatinine 1.51 on discharge - may be close to baseline value -Hold home losartan, avoid nephrotoxic agents Transaminitis -Patient with stable transaminases - AST 73 ALT 112 -Patient with known metastatic disease to liver, with small amount of ascites Hyperlipidemia -Continue daily ezetimibe GERD -Continue daily Zantac MARTHA -Continue nightly CPAP Anxiety -Continue home bupropion Total Time Total Time Spent Total Time Spent (In Minutes): >30 Discharge Plan Discharge Items Patient Disposition: Home - Self-Care Reason For Visit: AFLUTTER Discharge Diagnosis: Atrial Flutter Condition: Good Discharge Goals: Decrease discomfort, Improve disease control and Improve function Activity: Resume your previous activity Non-emergency contact: Primary Care Provider Call non-emergency contact if: you have any medication questions, your pain is unusual for you and you have a fever Follow-up/Referrals: [facility] [Other] (A nurse from the [facility] will be calling you regarding a follow up appointment. *If you have any questions, call the clinic at [phone].) Bruce Ness MD [Primary Care Provider] - 03/21/19 10:00 am (Please, follow up at Dr. Ness's office with his actuarial assistant, Beth Galvan PA-C, on March 21 at 10:00 am. *If you need to change this appointment, call the office at [phone]. ) Wilder Martinez MD [Physician] - 04/01/19 3:45 pm (Please, follow up with Dr. Wilder Martinez at [facility] on MondayApril 01 at 3:45 pm. *If you need to change this appointment, call the office at [phone]. ) Diet: Regular Addtl Provider Instructions: Mr. Suresh, you were seen at [facility] for atrial flutter. The cardiology team was managing this, and they have started you on two new medications to help control your fast heart rate. These medications are diltiazem and digoxin. Please take them as prescribed. Due to the fact that you are on two new medications, one of which can lower your blood pressure, we will be discontinuing your other blood pressure medications for the time being. Your warfarin levels/INR in the hospital were on the lower side, which is why you were placed on an infusion of heparin (another blood thinner). Your INR on discharge was 2.1, and we are aiming to keep your levels between 2-3. We gave you 4mg on the day of your discharge, and recommend that you take 2.5mg at home, until otherwise instructed. Please follow up with the coumadin clinic, either on or Monday. If you have any trouble getting in with that clinic, please call the hospital and ask for Dr. Germain or Dr. Perkins. Please follow up with your primary care provider and antique refinisher - the appointment times and dates are listed above. If you have any further palpitations, shortness of breath, notice your heart rate is high without reason, or have chest pain, please seek medical attention. You can exercise - but be cautious and mindful of what your body is telling you. Try not to push yourself too hard as you are still recovering from the pneumonia. New medications: - diltiazem -> slows heart rate down and decreases blood pressure - digoxin -> helps control heart rhythm Medications to be stopped: - amiloride, amlodipine, hydralazine, losartan (all are blood pressure lowering medications) Prescriptions: New digoxin 125 mcg Tablet 0.125 mg PO DAILY@1600 30 Days Qty: 30 RF: 0 diltiazem HCl 180 mg capsule,extended release 24 hr 180 mg PO QAM 30 Days Qty: 30 RF: 3 Continued Rubraca 300 mg tablet 600 mg PO BID Qty: 180 RF: 3 bupropion HCl 150 mg tablet extended release 24 hr 150 mg PO QAM Qty: 30 RF: 0 potassium chloride 10 mEq Capsule, Extended Release 20 meq PO QAM RF: 0 metoprolol tartrate 50 mg Tablet 50 mg PO AMPM RF: 0 ranitidine HCl 150 mg Capsule 150 mg PO QPM RF: 0 Centrum Silver 0.4-300-250 mg-mcg-mcg Tablet 1 tab PO DAILY RF: 0 metoprolol tartrate 50 mg tablet 25 mg PO . DAILY @ MIDDAY RF: 0 amoxicillin 500 mg capsule 4 cap PO UD PRN (Reason: 1 hour prior to dental appt) RF: 0 terazosin 2 mg Capsule 4 mg PO HS RF: 0 loratadine 10 mg Tablet 10 mg PO DAILY PRN (Reason: allergies) RF: 0 cholecalciferol (vitamin D3) [Vitamin D3] 400 unit Tablet,Chewable 400 unit PO DAILY RF: 0 melatonin 2.5 mg Tablet,Chewable 2.5 mg PO HS RF: 0 ezetimibe 10 mg tablet 10 mg PO QPM RF: 0 warfarin 5 mg tablet 2.5 mg PO QAM RF: 0 Discontinued amiloride 5 mg Tablet 5 mg PO QAM RF: 0 amlodipine 10 mg Tablet 10 mg PO QAM RF: 0 losartan 100 mg Tablet 100 mg PO QAM RF: 0 Stand-Alone Forms: [facility] Discharge Orders: Discharge Order (Routine); Ordered 03/19/19 Ordered By: Gautam Germain Admission Data Admit Date/Time: 03/15/19 20:26 Attending Provider: Edward Perkins Admit Provider: Gautam Germain Primary Care Provider: Bruce Ness Other Providers: Juan Duarte ; Lawrence Mccabe ; Yanira Sanchez ; Coty Pina Service: Telemetry Other Interventions: Discharge Summary Assessment (RN) Last Done: 03/19/19 15:45 DC Date/Time DO NOT enter until pt leaves facility: 03/19/19 16:51 Supervising Physician Co-Signing Physician Notes I personally examined the patient and verified all shetty points of history and exam, discussed case, and agree with decision making with Dr Emery. feeling good heart rates better. no symptoms. would like to go home vitals noted nad breathing unlabored no pallor or icterus, rates better controlled. INR >2 afib/flutter - rate control improved enough stable for home outpt f/u atrial appendage clot - anticoagulation next INR 2-3 days otherwise as above, stable for home Resident Activity Tracking Resident Involvement: Resident Care Provided Care Provided: Adult Hospital Medicine
[2019-03-19] MEDS ORDERED: POTASSIUM CHLORIDE 20 MEQ TABCR PO SCH (09:00)
[2019-03-19] MEDS: dilTIAZem HCl 60 MG TAB PO SCH ×2 (09:07→14:41)
[2019-03-19] MEDS: POLYETHYLENE (MIRALAX) 17 GM PACK PO SCH (09:08)
[2019-03-19] MEDS: CHOLECALCIFEROL (VITAMIN D) 400 UNITS TABLET PO SCH (09:08)
[2019-03-19] MEDS: RUCAPARIB CAMSYLATE PO SCH (09:08)
[2019-03-19] MEDS: BuPROPion XL 150 MG TABCR PO SCH (09:08)
[2019-03-19] MEDS: METOPROLOL TARTRATE 50 MG TAB PO SCH (09:08)
[2019-03-19] MEDS: WARFARIN SOD 4 MG TAB PO SCH (15:59)
[2019-03-19] MEDS: METOPROLOL TARTRATE 25 MG TAB PO SCH (15:59)
[2019-03-19] MEDS ORDERED: DIGOXIN 0.125 MG TAB PO SCH (16:00)
== END 2019-03-19 16:51 | disposition home or self-care (01) | DRG 309 ==
LOC: ED 14:57 → 2S 20:26 → SUATTDRO 20:26 → 2S 21:01

== ENCOUNTER 2019-05-30 16:25 | Inpatient (IN) ==
[2019-05-30] MEDS ORDERED: SODIUM CHLORIDE 0.9% 1000ML 2,000 ML IV ONE (16:46)
[2019-05-30] MEDS ORDERED: cefTRIAXone SODIUM 1,000 MG/50 ML BAG IV STA (16:46)
[2019-05-30 17:23] LABS: Basophils # (auto) 0.03 K/uL (0-0.2); Basophils % (auto) 0.2 %; Eosinophils # (auto) 0.02 K/uL (0-0.5); Eosinophils % (auto) 0.1 %; Hematocrit (blood only) 34.2 % (42-52); Hemoglobin 11.9 g/dL (14.0-18.0); Immature Granulocytes # (auto) 0.06 K/uL (0.00-0.02); Immature Granulocytes % (auto) 0.4 %; Lymphocytes # (auto) 0.55 K/uL (1.2-3.4); Lymphocytes % (auto) 3.9 %; Mean Corpuscular Hemoglobin 34.5 pg (25-34); Mean Corpuscular Hgb Conc 34.8 g/dL (32-36); Mean Corpuscular Volume 99.1 fL (80-100); Mean Platelet Volume 11.1 fL (7.4-10.4); Monocytes % (auto) 10.6 %; Neutrophils # (auto) 11.99 K/uL (1.4-6.5); Neutrophils % (auto) 84.8 %; Platelet Count 179 K/uL (130-400); RDW Coefficient of Variation 14.4 % (11.5-14.5); RDW Standard Deviation 51.8 fL (36.4-46.3); Red Blood Count 3.45 M/uL (4.7-6.1); White Blood Count 14.15 K/uL (4.8-10.8)
[2019-05-30 17:32] LABS: Albumin Level 3.5 gm/dl (3.4-5.0); BUN Creatinine Ratio 10.5 (10-20); Creatinine Clr Calc Pharmacy 35.4 ml/min; Est GFR (African American) 31.9; Est GFR (Non-African American) 27.5
[2019-05-30 17:35] LABS: Albumin Globulin Ratio 0.9 (0.9-2); Bilirubin,Total 0.9 mg/dl (0.2-1); Globulin 3.9 gm/dl (2.5-4.0); Total Protein 7.4 gm/dl (6.4-8.2)
[2019-05-30 17:40] LABS: INR 1.6 (0.9-1.1); Partial Thromboplastin Ratio 1.2; Partial Thromboplastin Time 31.4 Seconds (21.0-31.0); Prothrombin Time 15.5 Seconds (9.0-12.0)
--- NOTE | 2019-05-30 18:00 | CT Scan Report ---
CT OF THE ABDOMEN AND PELVIS WITHOUT CONTRAST CLINICAL HISTORY: Fever w/ questionable kidney stone as he had a recent stent placement and lithotrip sy. Metastatic prostate cancer. COMPARISON STUDY: CT of the abdomen and pelvis March 11, 2019. KUB May 27, 2019. TECHNIQUE: Axial images of the abdomen and pelvis were obtained without IV contrast. Images were revi ewed in the axial, sagittal, and coronal planes. Automated exposure control was utilized for the michelle dy. A dose lowering technique was utilized adhering to the principles of ALARA. FINDINGS: Multiple small sclerotic lesions have increased in size and number since CT of March 11, 2019 . There are gallstones within the gallbladder without evidence for acute cholecystitis. Evaluation of the abdomen and pelvis is suboptimal on this unenhanced exam. Note is made of interval development o f a 5.3 cm wedge-shaped hypodensity within the right hepatic lobe. This was not evident on prior CT. The previously described hepatic lesions not visualized on this examination. Unenhanced images of the spleen, adrenal glands and pancreas are unremarkable. Paraaortic lymph nodes have moderately increas ed in size since CT of March 11, 2019. A left paraaortic lymph node now measures 4.2 x 2.2 cm. It previ ously measured 2.5 x 1.8 cm. There is colonic diverticulosis. There is no evidence for acute divertic ulitis. No pneumoperitoneum is present. There is no evidence for acute appendicitis. There is hyperde nse material within the appendix. Small amount of ascites within the pelvis is noted. Severe bilatera l hiatal hydronephrosis is similar to prior exam of March 11, 2019. There are no right ureteral calculi . Note is made of a 3 mm x 2 mm proximal left ureteral calculus. There is left perinephric infiltrati on. A 1.3 cm density within the right seminal vesicle is unchanged. Nephrolithiasis is noted. The felicitas culus measure up to 8 mm. IMPRESSION: 1. No significant change in severe bilateral hydroureteronephrosis since CT of March 11, 2019. 3 mm x 2 mm proximal left ureteral calculus. Left perinephric infiltration which may be due to the obstructio n. However, superimposed infection cannot be excluded. Bilateral nephrolithiasis. 2. Increase in abdominal lymphadenopathy since CT of March 11, 2019 which suggests progression of metas tatic disease. Interval increase in size and number of sclerotic lesions suggestive of skeletal metas tases. 3. Interval development of a 5.3 cm wedge-shaped hypodensity within the right hepatic lobe. The CT ap pearance is nonspecific although raises the possibility of an infarct or geographic fatty infiltratio n. A neoplastic process is considered less likely but could appear similar. 4. Colonic diverticulosis without evidence for acute diverticulitis. 5. Small amount of ascites. 2. Electronically signed by: Manjeet Saucedo M.D. 05/30/2019 5:58 PM
--- NOTE | 2019-05-30 18:02 | XRay Report ---
XR chest 1V portable CLINICAL HISTORY: Sepsis COMPARISON STUDY: Chest CT March 11, 2019. Chest radiograph March 15, 2019. FINDINGS: Mild cardiomegaly is noted. There is no pneumothorax or pleural effusion. There is no evide nce for pulmonary edema. IMPRESSION: No acute cardiopulmonary findings. Mild cardiomegaly. Electronically signed by: Manjeet Saucedo M.D. 05/30/2019 6:01 PM
--- NOTE | 2019-05-30 19:02 | Urology Consultation ---
Date of Consultation May 30, 2019 Assessment & Plan (1) Hydronephrosis: Bilateral hydronephrosis with renal failure and likely urosepsis Plan for immediate cystoscopy and bilateral ureteral stent placement to completely decompress the upper tracts Stones within the kidney are incidental to the hydronephrosis and not the cause. Risks, benefits, alternatives discussed with the patient and his Consent is on the chartplan for operating room GITA History of Present Illness History of Present Illness 68-year-old gentleman with metastatic prostate cancer and several other comorbid conditions Recently was treated for bilateral ureteral stonesin the midst of that surgery found to have bilateral distal ureteral stricturing, likely from prior radiation therapy and the stones were more incidental to the stricture than the cause of obstruction. We attempted to dilate the strictures and treat his stones, he was left with stents for several weeks which were subsequently removed on Monday in our offi ce. He reports that shortly after stent removal he developed nausea This persisted through the day on Monday and Monday Today () he developed fevers and chills as well as some confusion leading to an emergency room visit. CT reveals persistent bilateral hydronephrosisessentially unchanged from before, persistent lower pole stones bilaterally stranding around both kidneys Creatinine is elevated, white blood cell count is elevated, lactate is elevated He reports pain on the left side greater than the right side but present on both sides Allergies Allergy/AdvReac Type Severity Reaction Status Date / Time hazelnut Allergy Severe Swelling Verified 05/30/19 17:14 of Lip/Tongue/Throat atorvastatin Allergy Intermediate "FUZZY Verified 05/30/19 17:14 THOUGHT PROCESS AND DEPRESSION LIKE SYMPTOMS" lisinopril Allergy Intermediate SWELLING Verified 05/30/19 17:14 IN ANKLES Idimoyk-Xmn-Ivi Reductase Allergy Unknown Unknown Verified 05/30/19 17:14 Inhibitor Home Medications Home Medications Medication Instructions Recorded Confirmed Type Centrum Silver 1 tab PO QAM 07/04/18 05/30/19 History metoprolol tartrate 50 mg PO AMPM 07/04/18 05/30/19 History potassium chloride 20 meq PO QAM 07/04/18 05/30/19 History ranitidine HCl 150 mg PO QPM 07/04/18 05/30/19 History cholecalciferol (vitamin D3) 400 unit PO QAM 01/09/19 05/30/19 History [Vitamin D3] loratadine 10 mg PO DAILY PRN 01/09/19 05/30/19 History melatonin 2.5 mg PO HS 01/09/19 05/30/19 History ezetimibe 10 mg PO QPM 03/11/19 05/30/19 History diltiazem HCl 180 mg PO QAM 30 Days #30 cap 03/19/19 05/30/19 Rx metoprolol tartrate 50 mg tablet 25 mg PO QDL tab 04/19/19 05/30/19 History digoxin 125 mcg PO Q OTHER DAY 04/30/19 05/30/19 History warfarin 5 mg PO 3XWK 04/30/19 05/30/19 History bicalutamide 50 mg PO DAILY 05/10/19 05/30/19 History terazosin 2 mg PO HS 05/16/19 05/30/19 History warfarin 2.5 mg PO 4XWK 05/30/19 05/30/19 History Patient History Medical History Adjustment disorder (Acute) Arthritis (Acute) HTN (hypertension) (Chronic) History of prostate cancer (Chronic) s/p surgery, radiation Anemia Anxiety Atrial fibrillation and flutter dx years ago - follows w/ Dr. Martinez - on warfarin CKD (chronic kidney disease) Last creatinine from 05/05/19 was 1.5 Diverticulosis GERD (gastroesophageal reflux disease) Hyperlipidemia Hypertension Intracardiac thrombus Patient on coumadin Kidney stones Osteoarthritis Pneumonia 03/11/19 admitted for pneumonia, resolved per patient. 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 Sleep apnea CPAP Sleep apnea uses CPAP Surgical History Status post implantation of artificial urinary sphincter (Chronic) Colon polyp REMOVED (BENIGN) VIA EGD H/O eye surgery RT EYE-LASER PROCEDURE History of colonoscopy History of esophagogastroduodenoscopy (EGD) History of lithotripsy History of prostatectomy History of tonsillectomy History of tooth extraction History of transesophageal echocardiography (CARMEN) Presence of Watchman left atrial appendage closure device 12/2018 - [facility] Family History Brother Family history of diabetes mellitus Family hx of colon cancer Alcohol abuse Cancer Hypertension Lung disease Cardiac disorder Father Alcohol abuse Hypertension Cardiac disorder Cancer Unknown Myocardial infarction Prostate cancer Colorectal cancer Social History Preferred Language: Swedish Communication Ability: Effective Nursery 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 Required: No Beliefs That Will Affect Care: None marital status: Current Living Situation: Spouse Feels Safe at Home: Yes Smoking Status: Never smoker Second Hand Exposure: No ; Hx Alcohol Use: No Hx Substance Use: No Review of Systems Constitutional: + fever, + chills, + sweats and + fatigue Eyes: no worsening vision Ear, Nose, Mouth, Throat: no facial pain and no pain with swallowing Respiratory: no cough and no dyspnea Cardiovascular: no chest pain and no palpitations Gastrointestinal: + abdominal pain, + nausea and + vomiting Genitourinary: + difficulty urinating Musculoskeletal: no back pain Integumentary: no rash and no urticaria Neurologic: no gait abnormality and no unsteadiness Psychiatric: no behavioral changes and no depression Endocrine: no fatigue Results & Data Vital Signs (Past 12 Hours) Vital Signs Temp Pulse Resp BP Pulse Ox 05/30/19 18:13 39.5 C H 65 22 158/69 H 94 05/30/19 18:00 64 27 H 158/70 H 05/30/19 17:46 65 20 168/71 H 05/30/19 17:15 64 20 05/30/19 17:08 65 96 05/30/19 17:00 64 18 05/30/19 16:51 95 05/30/19 16:45 66 22 96 05/30/19 16:44 65 23 96 05/30/19 16:40 66 22 220/83 H 95 05/30/19 16:28 39.0 C H 68 20 157/72 H 97 PG Care Time/CCT Total # of Minutes Spent Total Time Spent with Patient: Total time spent is greater than 50% in coordination of care (as documented) at patient's floor/unit and/or counseling patient:
[2019-05-30] MEDS ORDERED: MIDAZOLAM HCL 1 MG/ML 2ML VIAL ONE (19:07)
[2019-05-30] MEDS ORDERED: fentaNYL citrate 100 MCG/2 ML VIAL ONE (19:07)
[2019-05-30] MEDS ORDERED: ePHEDrine sulfate 50 MG/ML AMP IV PRN (19:12)
[2019-05-30] MEDS ORDERED: fentaNYL citrate 100 MCG/2 ML VIAL IV PRN (19:12)
[2019-05-30] MEDS ORDERED: LIDOCAINE HCL 2% 2 ML VIAL/AMP(20MG/ML) INFIL ONE (19:12)
[2019-05-30] MEDS ORDERED: PROPOFOL IV EMULSION 10 MG/ML 20 ML VIAL IV ONE (19:12)
[2019-05-30] MEDS ORDERED: ATROPINE SULFATE 0.1 MG/ML 10ML SYR IV PRN (19:12)
[2019-05-30] MEDS ORDERED: ONDANSETRON INJ 2 MG/ML 2 ML VIAL IV PRN (19:12)
[2019-05-30] MEDS ORDERED: IOTHALAMATE MEGLUMINE II 17.2% 250 ML VIAL ONE (19:14)
--- NOTE | 2019-05-30 19:18 | Anesthesiology Consultation ---
Date of Service May 30, 2019 Assessment & Plan (1) Encounter for pre-operative examination: Chart Review Chart Review: Acceptable Risk for Surgery and Patient NOT seen in Pre Admission Testing Consults Requested none ASA [id number] Proposed Anesthesia Anesthesia Type: MAC Risk / Benefits Reviewed With: PT / POA / Parent / Guardian, Accepts Plan and Informed Consent Obtained History Surgery Operation Date: 05/30/19 18:40 Proposed Procedures p Ureteral Stent Insertion/Removal - Oscar Schmitt MD Height/Weight Height: 5 ft 11 in Weight: 91 kg Allergies Allergy/AdvReac Type Severity Reaction Status Date / Time hazelnut Allergy Severe Swelling Verified 05/30/19 17:14 of Lip/Tongue/Throat atorvastatin Allergy Intermediate "FUZZY Verified 05/30/19 17:14 THOUGHT PROCESS AND DEPRESSION LIKE SYMPTOMS" lisinopril Allergy Intermediate SWELLING Verified 05/30/19 17:14 IN ANKLES Nnnlgje-[id number]-Lyy Reductase Allergy Unknown Unknown Verified 05/30/19 17:14 Inhibitor Medications Home Medications Medication Instructions Recorded Confirmed Last Taken Centrum Silver 1 tab PO QAM 07/04/18 05/30/19 05/30/19 metoprolol tartrate 50 mg PO AMPM 07/04/18 05/30/19 05/30/19 08:00 potassium chloride 20 meq PO QAM 07/04/18 05/30/19 05/30/19 ranitidine HCl 150 mg PO QPM 07/04/18 05/30/19 05/29/19 cholecalciferol (vitamin D3) 400 unit PO QAM 01/09/19 05/30/19 05/30/19 [Vitamin D3] loratadine 10 mg PO DAILY PRN 01/09/19 05/30/19 Unknown melatonin 2.5 mg PO HS 01/09/19 05/30/19 05/29/19 ezetimibe 10 mg PO QPM 03/11/19 05/30/19 05/29/19 diltiazem HCl 180 mg PO QAM 30 Days #30 cap 03/19/19 05/30/19 05/30/19 metoprolol tartrate 50 mg tablet 25 mg PO QDL tab 04/19/19 05/30/19 05/29/19 digoxin 125 mcg PO Q OTHER DAY 04/30/19 05/30/19 05/14/19 19:00 warfarin 5 mg PO 3XWK 04/30/19 05/30/19 05/29/19 bicalutamide 50 mg PO DAILY 05/10/19 05/30/19 05/30/19 terazosin 2 mg PO HS 05/16/19 05/30/19 05/29/19 warfarin 2.5 mg PO 4XWK 05/30/19 05/30/19 05/28/19 NPO Date Last Intake of Fluids: 05/30/19 Time Last Intake of Fluids: 09:00 Date Last Intake of Solids: 05/30/19 Time Last Intake of Solids: 09:00 Past Medical History Medical History Adjustment disorder (Acute) Arthritis (Acute) HTN (hypertension) (Chronic) History of prostate cancer (Chronic) s/p surgery, radiation Anemia Anxiety Atrial fibrillation and flutter dx years ago - follows w/ Dr. Martinez - on warfarin CKD (chronic kidney disease) Last creatinine from 05/05/19 was 1.5 Diverticulosis GERD (gastroesophageal reflux disease) Hyperlipidemia Hypertension Intracardiac thrombus Patient on coumadin Kidney stones Osteoarthritis Pneumonia 03/11/19 admitted for pneumonia, resolved per patient. 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 Sleep apnea CPAP Sleep apnea uses CPAP Exercise / Class Metabolic Activity II 4-5 Yardwork/Stairs/Walk up hill Past Family History Family History Brother Family history of diabetes mellitus Family hx of colon cancer Alcohol abuse Cancer Hypertension Lung disease Cardiac disorder Father Alcohol abuse Hypertension Cardiac disorder Cancer Unknown Myocardial infarction Prostate cancer Colorectal cancer Past Surgical History Surgical History Status post implantation of artificial urinary sphincter (Chronic) Colon polyp REMOVED (BENIGN) VIA EGD H/O eye surgery RT EYE-LASER PROCEDURE History of colonoscopy History of esophagogastroduodenoscopy (EGD) History of lithotripsy History of prostatectomy History of tonsillectomy History of tooth extraction History of transesophageal echocardiography (CARMEN) Presence of Watchman left atrial appendage closure device 12/2018 - [facility] Past Anesthesia History No Hx of Anesthesia Complications History of PONV No Hx of PONV and No Hx of Motion Sickness Social History Smoking Status: Never smoker Hx Alcohol Use: No Hx Substance Use: No substance use type: does not use Physical Exam Vital Signs Last Vital Signs Temp 39.5 C H 05/30/19 18:13 Pulse 65 05/30/19 18:13 Resp 22 05/30/19 18:13 BP 158/69 H 05/30/19 18:13 Pulse Ox 94 05/30/19 18:13 ENMT Mouth: no dentition abnormality Thyromental Distance: > or= 3.5 Finger Breadths Mallampati Class: III Neck normal visual inspection and + facial hair Respiratory normal respiratory effort Auscultation: lungs clear to auscultation bilaterally Cardiovascular Rate/Rhythm: regular rate and regular rhythm Psychiatric Orientation: alert (groggy) Testing Laboratory Results 05/30/19 17:00 05/30/19 17:00 PT 15.5 Seconds (9.0-12.0) H 05/30/19 17:00 INR 1.6 (0.9-1.1) H 05/30/19 17:00 APTT 31.4 Seconds (21.0-31.0) H 05/30/19 17:00
--- NOTE | 2019-05-30 19:56 | Operative Report ---
Post Operative Report Pre & Post Diagnosis Operation Date: 05/30/19 18:40 Pre-Op Diagnosis: Bilateral hydronephrosis Post-Op Diagnosis: Bilateral hydronephrosis Procedure Operation Date: 05/30/19 18:40 Actual Procedures p Cystoscopy, Bilateral Ureteral Stent Insertion(Bilateral) - Oscar Schmitt MD Surgeon Isaiah Schmitt MD Recruiter Coordinator none Estimated Blood Loss 0 Findings Consistent with Post-Op Diagnosis Specimens none Description of Procedure The patient was identified in the preopertive holding area, appropriate informed consents were reviewed and completed and the patient was transferred to the operative suite. Upon arrival, appropriate antibiotics and anesthesia were administered and the patient was placed in dorsal lithotomy position and prepped and draped in sterile fashion. To begin the case I deactivated his artificial urethral sphincter and passed a 22 [place] cystoscope with 30 degree lens. Inspection revealed a healthy- appearing urethra. He is notably status post prostatectomy with a rigid bladder neck secondary to his prior radiation. I was able to visually inspect the bladder which appeared to be normal with minimal residual inflammation from his recent ureter stents. I turned my attention the left ureteral orifice and cannulated with a sensor wire and a 5 [place] open-ended catheter. The wire a dvanced to the kidney without difficulty. I subsequently placed a 6 [place] by 26 cm double-J ureteral stent. There was not any grossly purulent urine discharge from the stent but clear urine. I then turned my attention to the right ureteral orifice. I cannulated with a sensor wire a 5 [place] open-ended catheter and advanced the wire to the kidney. I subsequently placed a 6 [place] by 26 cm double-J ureteral stent again seen clear urine without any purulent discharge. I decompressed the bladder and reactivated his sphincter. He was reversed from anesthesia and taken to the PACU in stable condition. There were no complications. I attest to the content of the Intraoperative Record and any orders documented therein. Any exceptions are noted below.
--- NOTE | 2019-05-30 19:57 | Fluoroscopy Report ---
FL KUB CLINICAL HISTORY: L CYSTO STENT COMPARISON STUDY: CT of the abdomen and pelvis May 30, 2019. FLUOROSCOPY TIME: 6 seconds. FLUOROSCOPIC IMAGES: 2. FINDINGS: These images demonstrate placement of bilateral ureteral stents. IMPRESSION: Fluoroscopy provided for placement of bilateral ureteral stents. Electronically signed by: Manjeet Saucedo M.D. 05/30/2019 7:55 PM
--- NOTE | 2019-05-30 19:59 | Anesthesiology Progress Note ---
Date of Service May 30, 2019 Anesthesia Post Procedure Vital Signs Vital Signs: Temp Pulse Pulse Resp BP BP Pulse Ox 05/30/19 19:55 62 21 147/62 H 100 05/30/19 19:49 38 C H 65 19 142/66 H 97 05/30/19 18:13 39.5 C H 65 22 158/69 H 94 05/30/19 18:00 64 27 H 158/70 H 05/30/19 17:46 65 20 168/71 H 05/30/19 17:15 64 20 05/30/19 17:08 65 96 05/30/19 17:00 64 18 05/30/19 16:51 95 05/30/19 16:45 66 22 96 05/30/19 16:44 65 23 96 05/30/19 16:40 66 22 220/83 H 95 05/30/19 16:28 39.0 C H 68 20 157/72 H 97 Transfer of Care Handoff Completed per policy Notes Mental Status: alert / awake / arousable Patient Amnestic to Procedure: Yes Nausea / Vomiting: adequately controlled Pain: adequately controlled Airway Patency, RR, SpO2: stable & adequate BP & HR: stable & adequate Hydration State: stable & adequate Anesthetic Complications: no major complications apparent
--- NOTE | 2019-05-30 20:22 | Emergency Department Note ---
Entered by Tanmay Gaytan acting as a scribe for Edward Shaw DO History of Present Illness General Chief complaint: Shortness of Breath/Dyspnea Stated complaint: SOB, SAME SYMPTOMS HAD FLUID HEART BEFORE Source: patient History of Present Illness Onset (ago): hour(s) (this morning) Location: head Pain Consistency: + constant Maximum Pain Intensity: 3 Quality: + other (lightheadedness) Associated symptoms: + chest pain and + other (pain with urination, increased frequency, left back pain); no cough, no headaches, no nausea/vomiting and no shortness of breath The patient is a 68 y/o male w/ PMHx of GERD, a-fib, HTN, lithotripsy who presents to the ED w/ CC of constant lightheadedness beginning this morning. The patient states he had ureteral stents placed and lithotripsy on May 16. He reports he had them removed three days ago. The patient notes since his surgery, his pain with urination has increased, and his urine frequency has increased. He states he also feels sore all over his body, and he developed left back and mild chest pain yesterday. The patient reports he does not know when his fever started. He notes his last BM was yesterday, and it was normal. The patient denies cough, nausea, vomiting, open wounds or sores, being around anyone sick, chest pain, shortness of breath, and headache. Home Medications Home Medications Medication Instructions Recorded Confirmed Type Centrum Silver 1 tab PO QAM 07/04/18 05/30/19 History metoprolol tartrate 50 mg PO AMPM 07/04/18 05/30/19 History potassium chloride 20 meq PO QAM 07/04/18 05/30/19 History ranitidine HCl 150 mg PO QPM 07/04/18 05/30/19 History cholecalciferol (vitamin D3) 400 unit PO QAM 01/09/19 05/30/19 History [Vitamin D3] loratadine 10 mg PO DAILY PRN 01/09/19 05/30/19 History melatonin 2.5 mg PO HS 01/09/19 05/30/19 History ezetimibe 10 mg PO QPM 03/11/19 05/30/19 History diltiazem HCl 180 mg PO QAM 30 Days #30 cap 03/19/19 05/30/19 Rx metoprolol tartrate 50 mg tablet 25 mg PO QDL tab 04/19/19 05/30/19 History digoxin 125 mcg PO Q OTHER DAY 04/30/19 05/30/19 History warfarin 5 mg PO 3XWK 04/30/19 05/30/19 History bicalutamide 50 mg PO DAILY 05/10/19 05/30/19 History terazosin 2 mg PO HS 05/16/19 05/30/19 History warfarin 2.5 mg PO 4XWK 05/30/19 05/30/19 History Allergies Allergy/AdvReac Type Severity Reaction Status Date / Time hazelnut Allergy Severe Swelling Verified 05/30/19 17:14 of Lip/Tongue/Throat atorvastatin Allergy Intermediate "FUZZY Verified 05/30/19 17:14 THOUGHT PROCESS AND DEPRESSION LIKE SYMPTOMS" lisinopril Allergy Intermediate SWELLING Verified 05/30/19 17:14 IN ANKLES Wcokfep-Sty-Tpg Reductase Allergy Unknown Unknown Verified 05/30/19 17:14 Inhibitor Past Med/Surg History Medical History Adjustment disorder (Acute) Arthritis (Acute) HTN (hypertension) (Chronic) History of prostate cancer (Chronic) s/p surgery, radiation Anemia Anxiety Atrial fibrillation and flutter dx years ago - follows w/ Dr. Martinez - on warfarin CKD (chronic kidney disease) Last creatinine from 05/05/19 was 1.5 Diverticulosis GERD (gastroesophageal reflux disease) Hyperlipidemia Hypertension Intracardiac thrombus Patient on coumadin Kidney stones Osteoarthritis Pneumonia 03/11/19 admitted for pneumonia, resolved per patient. 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 Sleep apnea CPAP Sleep apnea uses CPAP Surgical History Status post implantation of artificial urinary sphincter (Chronic) Colon polyp REMOVED (BENIGN) VIA EGD H/O eye surgery RT EYE-LASER PROCEDURE History of colonoscopy History of esophagogastroduodenoscopy (EGD) History of lithotripsy History of prostatectomy History of tonsillectomy History of tooth extraction History of transesophageal echocardiography (CARMEN) Presence of Watchman left atrial appendage closure device 12/2018 - [facility] Family History Brother Family history of diabetes mellitus Family hx of colon cancer Alcohol abuse Cancer Hypertension Lung disease Cardiac disorder Father Alcohol abuse Hypertension Cardiac disorder Cancer Unknown Myocardial infarction Prostate cancer Colorectal cancer Social History Preferred Language: Central African Communication Ability: Effective Narcotics Detective Required: No Beliefs That Will Affect Care: None marital status: Current Living Situation: Spouse Feels Safe at Home: Yes Smoking Status: Never smoker Second Hand Exposure: No ; Hx Alcohol Use: No Hx Substance Use: No Review of Systems See HPI for pertinent positives & negatives. and A total of 10 systems reviewed and were otherwise negative Physical Exam Vital Signs Vital Signs - 24 hr 05/30/19 16:28 05/30/19 16:40 05/30/19 16:44 Temperature 39.0 C H Temperature Source Oral Sepsis Action Taken by Nursing No Action Required Pulse Rate 68 66 65 Pulse Rate [Apical] Pulse Rate from SpO2 Sensor 65 66 Pulse Rhythm Pulse Rhythm [Apical] Respiratory Rate 20 22 23 Respiratory Effort / Characteristics Non-Labored Spontaneous Respiratory Depth Normal Respiratory Pattern Regular Blood Pressure 157/72 H 220/83 H Blood Pressure [Right Arm] Blood Pressure Mean 100 128 Blood Pressure Mean [Right Arm] Pulse Oximetry 97 95 96 Oxygen Delivery Method Room Air Oxygen Flow Rate 05/30/19 16:45 05/30/19 16:51 05/30/19 17:00 Temperature Temperature Source Sepsis Action Taken by Nursing Pulse Rate 66 64 Pulse Rate [Apical] Pulse Rate from SpO2 Sensor 66 Pulse Rhythm Pulse Rhythm [Apical] Respiratory Rate 22 18 Respiratory Effort / Characteristics Respiratory Depth Respiratory Pattern Blood Pressure Blood Pressure [Right Arm] Blood Pressure Mean Blood Pressure Mean [Right Arm] Pulse Oximetry 96 95 Oxygen Delivery Method Room Air Oxygen Flow Rate 05/30/19 17:08 05/30/19 17:15 05/30/19 17:46 Temperature Temperature Source Sepsis Action Taken by Nursing Pulse Rate 65 64 65 Pulse Rate [Apical] Pulse Rate from SpO2 Sensor Pulse Rhythm Regular Pulse Rhythm [Apical] Respiratory Rate 20 20 Respiratory Effort / Characteristics Respiratory Depth Respiratory Pattern Blood Pressure 168/71 H Blood Pressure [Right Arm] Blood Pressure Mean 103 Blood Pressure Mean [Right Arm] Pulse Oximetry 96 Oxygen Delivery Method Room Air Oxygen Flow Rate 05/30/19 18:00 05/30/19 18:13 05/30/19 19:49 Temperature 39.5 C H 38 C H Temperature Source Temporal Artery Scan Sepsis Action Taken by Nursing Pulse Rate 64 65 Pulse Rate [Apical] 65 Pulse Rate from SpO2 Sensor Pulse Rhythm Pulse Rhythm [Apical] Regular Respiratory Rate 27 H 22 19 Respiratory Effort / Characteristics Non-Labored Respiratory Depth Normal Respiratory Pattern Regular Blood Pressure 158/70 H 158/69 H Blood Pressure [Right Arm] 142/66 H Blood Pressure Mean 99 98 Blood Pressure Mean [Right Arm] 91 Pulse Oximetry 94 97 Oxygen Delivery Method Room Air Oxymask Oxygen Flow Rate 10 05/30/19 19:55 05/30/19 20:05 Temperature 38.2 C H Temperature Source Temporal Artery Scan Sepsis Action Taken by Nursing Pulse Rate Pulse Rate [Apical] 62 63 Pulse Rate from SpO2 Sensor Pulse Rhythm Pulse Rhythm [Apical] Regular Regular Respiratory Rate 21 22 Respiratory Effort / Characteristics Non-Labored Non-Labored Respiratory Depth Normal Normal Respiratory Pattern Regular Regular Blood Pressure Blood Pressure [Right Arm] 147/62 H 159/72 H Blood Pressure Mean Blood Pressure Mean [Right Arm] 90 101 Pulse Oximetry 100 98 Oxygen Delivery Method Oxymask Nasal Cannula Oxygen Flow Rate 10 2 GENERAL: Sitting up in bed, ill-appearing, disheveled EYE EXAM: normal conjunctiva OROPHARYNX: no exudate, no erythema, lips, buccal mucosa, and tongue normal and mucous membranes are moist NECK: supple, no nuchal rigidity, no adenopathy, non-tender LUNGS: Clear to auscultation. Normal chest wall mechanics HEART: no murmurs, S1 normal and S2 normal ABDOMEN: abdomen soft, tenderness to the left mid-abdomen to palpation, normo- active bowel sounds, no masses, no rebound or guarding. BACK: Back is symmetrical on inspection and there is no deformity, no midline t enderness, no CVA tenderness. SKIN: no rashes and no bruising UPPER EXTREMITIES: upper extremities are grossly normal. LOWER EXTREMITIES: No pitting edema. NEURO EXAM: Normal sensorium, cranial nerves II-XII grossly intact, normal speech, no gross weakness of arms, no gross weakness of legs. Course ED COURSE: Vital signs were reviewed and showed HTN and febrile vitals. The patients medical record was reviewed The above diagnostic studies were performed and reviewed. ED treatments and interventions as stated above. 1640: The patient was evaluated in room C06. A complete history and physical examination was performed. 1816: I discussed the patient's case with Dr. Schmitt, Urology. The patient will go to the OR. 1824: Dr. Kei Avendaño, [facility] Hospitalist has been made aware of the patient's case. 1830: Upon reevaluation, the patient is resting. .I discussed my findings with the patient and he understands and agrees with the treatment plan. Based on the patients age, coexisting illnesses, exam and lab findings the de cision to treat as an inpatient was made. The patient remained stable while under my care. The patient will be evaluated for further management. Administered Medications Discontinued Medications Ceftriaxone Sodium (Rocephin) 1,000 mg in 50 mls @ 100 mls/hr IV NOW STA Stop: 05/30/19 17:15 Last Infusion: 05/30/19 17:50 Dose: 0 mls/hr Documented by: [id number] Admin: 05/30/19 17:14 Dose: 100 mls/hr Documented by: [id number] Sodium Chloride (Nss 1000ml) 2,000 mls @ 999 mls/hr IV .Q2H1M ONE Stop: 05/30/19 18:46 Last Admin: 05/30/19 17:14 Dose: 999 mls/hr Documented by: [id number] Medical Decision Making Differential Diagnosis Differential diagnoses includes but is not limited to gastritis, peptic ulcer disease, GERD, gallbladder disease, pancreatitis, small bowel obstruction, acute coronary syndrome, pericarditis, ischemic bowel, irritable bowel disease, irritable bowel syndrome, appendicitis, diverticulitis, malignancy, hernia, urinary tract infection, torsion, perforation, trauma, infectious. Medical Records Attestation: I reviewed the patient's medical records. Home Medications Current Medication List: was personally reviewed by me Laboratory Data Attestation: I reviewed the patient's lab results. Result diagrams: 05/30/19 17:00 05/30/19 17:00 Lab Results 05/30/19 05/30/19 05/30/19 Range/Units 17:00 17:00 17:00 WBC 14.15 H (4.8-10.8) K/uL RBC 3.45 L (4.7-6.1) M/uL Hgb 11.9 L (14.0-18.0) g/dL Hct 34.2 L (42-52) % MCV 99.1 (80-100) fL MCH 34.5 H (25-34) pg MCHC 34.8 (32-36) g/dL RDW Std Deviation 51.8 H (36.4-46.3) fL RDW Coeff of Lauren 14.4 (11.5-14.5) % Plt Count 179 (130-400) K/uL MPV 11.1 H (7.4-10.4) fL Immature Gran % (Auto) 0.4 % Neut % (Auto) 84.8 % Lymph % (Auto) 3.9 % Fill[place] % (Auto) 10.6 % Eos % (Auto) 0.1 % Baso % (Auto) 0.2 % Immature Gran # (Auto) 0.06 H (0.00-0.02) K/uL Neut # (Auto) 11.99 H (1.4-6.5) K/uL Lymph # (Auto) 0.55 L (1.2-3.4) K/uL Fill[place] # (Auto) 1.50 H (0.11-0.59) K/uL Eos # (Auto) 0.02 (0-0.5) K/uL Baso # (Auto) 0.03 (0-0.2) K/uL PT 15.5 H (9.0-12.0) Seconds INR 1.6 H (0.9-1.1) APTT 31.4 H (21.0-31.0) Seconds PTT Ratio 1.2 Sodium 139 (136-145) mmol/L Potassium 3.0 L (3.5-5.1) mmol/L Chloride 104 (98-107) mmol/L Carbon Dioxide 25 (21-32) mmol/L Anion Gap 10.0 (3-11) BUN 25 H (7-18) mg/dl Creatinine 2.37 H (0.6-1.4) mg/dl Est Cr Clr Drug Dosing 35.4 ml/min Est GFR ( Amer) 31.9 Est GFR (Non-Af Amer) 27.5 BUN/Creatinine Ratio 10.5 (10-20) Glucose 163 H (70-99) mg/dl Lactate (0.4-2.0) mmol/L Calcium 9.0 (8.5-10.1) mg/dl Total Bilirubin 0.9 (0.2-1) mg/dl AST 24 (15-37) U/L ALT 27 (12-78) U/L Alkaline Phosphatase 78 (45-117) U/L Total Protein 7.4 (6.4-8.2) gm/dl Albumin 3.5 (3.4-5.0) gm/dl Globulin 3.9 (2.5-4.0) gm/dl Albumin/Globulin Ratio 0.9 (0.9-2) 05/30/19 Range/Units 17:00 WBC (4.8-10.8) K/uL RBC (4.7-6.1) M/uL Hgb (14.0-18.0) g/dL Hct (42-52) % MCV (80-100) fL MCH (25-34) pg MCHC (32-36) g/dL RDW Std Deviation (36.4-46.3) fL RDW Coeff of Lauren (11.5-14.5) % Plt Count (130-400) K/uL MPV (7.4-10.4) fL Immature Gran % (Auto) % Neut % (Auto) % Lymph % (Auto) % Fill[place] % (Auto) % Eos % (Auto) % Baso % (Auto) % Immature Gran # (Auto) (0.00-0.02) K/uL Neut # (Auto) (1.4-6.5) K/uL Lymph # (Auto) (1.2-3.4) K/uL Fillmore # (Auto) (0.11-0.59) K/uL Eos # (Auto) (0-0.5) K/uL Baso # (Auto) (0-0.2) K/uL PT (9.0-12.0) Seconds INR (0.9-1.1) APTT (21.0-31.0) Seconds PTT Ratio Sodium (136-145) mmol/L Potassium (3.5-5.1) mmol/L Chloride (98-107) mmol/L Carbon Dioxide (21-32) mmol/L Anion Gap (3-11) BUN (7-18) mg/dl Creatinine (0.6-1.4) mg/dl Est Cr Clr Drug Dosing ml/min Est GFR ( Amer) Est GFR (Non-Af Amer) BUN/Creatinine Ratio (10-20) Glucose (70-99) mg/dl Lactate 3.8 H* (0.4-2.0) mmol/L Calcium (8.5-10.1) mg/dl Total Bilirubin (0.2-1) mg/dl AST (15-37) U/L ALT (12-78) U/L Alkaline Phosphatase (45-117) U/L Total Protein (6.4-8.2) gm/dl Albumin (3.4-5.0) gm/dl Globulin (2.5-4.0) gm/dl Albumin/Globulin Ratio (0.9-2) Imaging Data Radiologist's Impression: Radiology results as stated below per my review and the radiologist's interpretation: XR chest 1V portable CLINICAL HISTORY: Sepsis COMPARISON STUDY: Chest CT March 11, 2019. Chest radiograph March 15, 2019. FINDINGS: Mild cardiomegaly is noted. There is no pneumothorax or pleural effusion. There is no evidence for pulmonary edema. IMPRESSION: No acute cardiopulmonary findings. Mild cardiomegaly. Electronically signed by: Manjeet Saucedo M.D. 05/30/2019 6:[address] OF THE ABDOMEN AND PELVIS WITHOUT CONTRAST CLINICAL HISTORY: Fever w/ questionable kidney stone as he had a recent stent placement and lithotripsy. Metastatic prostate cancer. COMPARISON STUDY: CT of the abdomen and pelvis March 11, 2019. KUB May 27, 2019. TECHNIQUE: Axial images of the abdomen and pelvis were obtained without IV contrast. Images were reviewed in the axial, sagittal, and coronal planes. Automated exposure control was utilized for the study. A dose lowering technique was utilized adhering to the principles of ALARA. FINDINGS: Multiple small sclerotic lesions have increased in size and number since CT of March 11, 2019. There are gallstones within the gallbladder without evidence for acute cholecystitis. Evaluation of the abdomen and pelvis is subopt imal on this unenhanced exam. Note is made of interval development of a 5.3 cm wedge-shaped hypodensity within the right hepatic lobe. This was not evident on prior CT. The previously described hepatic lesions not visualized on this examination. Unenhanced images of the spleen, adrenal glands and pancreas are unremarkable. Paraaortic lymph nodes have moderately increased in size since CT of March 11, 2019. A left paraaortic lymph node now measures 4.2 x 2.2 cm. It previously measured 2.5 x 1.8 cm. There is colonic diverticulosis. There is no evidence for acute diverticulitis. No pneumoperitoneum is present. There is no evidence for acute appendicitis. There is hyperdense material within the ap pendix. Small amount of ascites within the pelvis is noted. Severe bilateral hiatal hydronephrosis is similar to prior exam of March 11, 2019. There are no right ureteral calculi. Note is made of a 3 mm x 2 mm proximal left ureteral calculus. There is left perinephric infiltration. A 1.3 cm density within the right seminal vesicle is unchanged. Nephrolithiasis is noted. The calculus measure up to 8 mm. IMPRESSION: 1. No significant change in severe bilateral hydroureteronephrosis since CT of J galindo 2018. 3 mm x 2 mm proximal left ureteral calculus. Left perinephric infiltration which may be due to the obstruction. However, superimposed infection cannot be excluded. Bilateral nephrolithiasis. 2. Increase in abdominal lymphadenopathy since CT of March 11, 2019 which suggests progression of metastatic disease. Interval increase in size and number of sclerotic lesions suggestive of skeletal metastases. 3. Interval development of a 5.3 cm wedge-shaped hypodensity within the right hepatic lobe. The CT appearance is nonspecific although raises the possibility of an infarct or geographic fatty infiltration. A neoplastic process is considered less likely but could appear similar. 4. Colonic diverticulosis without evidence for acute diverticulitis. 5. Small amount of ascites. Electronically signed by: Manjeet Saucedo M.D. 05/30/2019 5:58 PM ECG Data Attestation: I personally reviewed and interpreted this ECG as follows: Indication: chest pain Rate (beats per minute): 65 Rhythm: sinus rhythm Findings: + left axis deviation; no PVC Blood Pressure Blood Pressure Findings: Elevated blood pressure Blood Pressure Disposition: further management by hospitalist EDITH Navarro Patient is a 68-year-old male who presents the ER for fever and left flank pain. Patient is a history of prostate cancer with bilateral hydronephrosis who had 2 stents recently placed and removed along with kidney stones. Since the removal of stent this Monday he has had left-sided flank pain. Fever started today. IV was established blood work was obtained. Labs show a leukocytosis of 14,000. No significant anemia. INR was slightly subtherapeutic at 1.6. BMP with mild hypokalemia. Creatinine was elevated 2.3. Lactate was significantly elevated at 3.8. Patient was given 2 L IV fluids along with IV Rocephin. Consult urology following a CT which showed bilateral hydronephrosis and a stone in the left proximal ureter. Urology took him emergently to the OR. Hospitalist was updated and patient was admitted. Impression & Plan Sepsis, Hydronephrosis, Acute UTI, Renal colic Critical Care Time Critical Care Time: Yes Total Critical Care Time: 40 I have personally spent 40 minutes of critical care time in the direct management of this patient. This includes bedside care, interpretation of diagnostic studies, and testing, discussion with consultants, patient, and family members, and other required patient management activities. This 40 minutes is in excess of all separately billable procedures. Discharge Plan Visit Data *Final* Discharge Date/Time: 05/30/19 18:59 Chief Complaint: Shortness of Breath/Dyspnea Stated Complaint: SOB, SAME SYMPTOMS HAD FLUID HEART BEFORE ED Provider: Edward Shaw Discharge Problem: Sepsis, Hydronephrosis, Acute UTI, Renal colic Patient Disposition: Admitted As Inpatient Discharge Instructions Interventions: ED Discharge Assessment Last Done: 05/30/19 18:59 Sepsis Evaluation Sepsis screening result: No Definite Risk Current stage of sepsis: sepsis Focused Exam Vital Signs Temp Pulse Pulse Resp BP BP Pulse Ox 05/30/19 20:05 38.2 C H 63 22 159/72 H 98 05/30/19 19:55 62 21 147/62 H 100 05/30/19 19:49 38 C H 65 19 142/66 H 97 05/30/19 18:13 39.5 C H 65 22 158/69 H 94 05/30/19 18:00 64 27 H 158/70 H 05/30/19 17:46 65 20 168/71 H 05/30/19 17:15 64 20 05/30/19 17:08 65 96 05/30/19 17:00 64 18 05/30/19 16:51 95 05/30/19 16:45 66 22 96 05/30/19 16:44 65 23 96 05/30/19 16:40 66 22 220/83 H 95 05/30/19 16:28 39.0 C H 68 20 157/72 H 97 Discharge Problem: Sepsis Qualifiers: Sepsis type: sepsis due to unspecified organism Sepsis acute organ dysfunction status: unspecified Qualified Code(s): A41.9 - Sepsis, unspecified organism Hydronephrosis Qualifiers: Hydronephrosis type: unspecified Qualified Code(s): N13.30 - Unspecified hydronephrosis The scribe's documentation has been prepared under my direction and personally reviewed by me in its entirety. I confirm that the note above accurately reflects all work, treatment, procedures, and medical decision making performed by me.
[2019-05-30] MEDS ORDERED: ACETAMINOPHEN 325 MG TAB PO STA (20:35)
--- NOTE | 2019-05-30 22:12 | CT Scan Report ---
HEAD CT NONCONTRAST CT DOSE: 614.27 mGy.cm HISTORY: Stroke symptoms. TECHNIQUE: Multiaxial CT images of the head were performed without the use of intravenous contrast. A utomated exposure control was utilized for this study. A dose lowering technique was utilized adheri ng to the principles of ALARA. Comparison: None. Findings: Small retention cyst within the right maxillary sinus. The mastoid air cells are clear. The calvarium and skull base are intact. The ventricles and sulci are within normal limits. There is no mass, hematoma, midline shift, or acute infarct. Impression: No acute intracranial abnormality. Electronically signed by: Daniel Guevara M.D. 05/30/2019 10:10 PM
[2019-05-30 22:14] LABS: Appearance Urine Clear (Clear); Bacteria Urine Automated Negative (Negative); Bilirubin Urine Negative (Negative); Blood Urine 3+ (Negative); Color Urine Yellow; Glucose Urine UA Negative (Negative); Ketones Urine Negative (Negative); Leukocyte Esterase Urine 2+ (Negative); Nitrite Urine Negative (Negative); Protein Urine 2+ (Negative); Specific Gravity Urine 1.013 (1.000-1.030); Urobilinogen Urine Negative (Negative); WBC Urine Automated >30 /hpf (0-5)
[2019-05-30 22:24] LABS: RBC Urine Automated >30 /hpf (0-4)
[2019-05-30] MEDS ORDERED: SODIUM CHLORIDE 0.9% 1000ML 1,000 ML IV SCH (22:45)
[2019-05-30] MEDS ORDERED: POTASSIUM CHLORIDE 20 MEQ/15 ML UDC PO ONE (23:00)
[2019-05-30] MEDS: POTASSIUM CHLORIDE / WTR 10 MEQ/100 ML PLCT IV SCH (23:30)
[2019-05-30] MEDS ORDERED: LORATADINE 10 MG TAB PO PRN (23:54)
[2019-05-31] MEDS ORDERED: MAGNESIUM HYDROXIDE SUSP 30 ML UDC PO PRN (00:01)
[2019-05-31] MEDS ORDERED: ZOLPIDEM TARTRATE 5 MG TAB PO PRN (00:01)
[2019-05-31] MEDS ORDERED: ONDANSETRON INJ 2 MG/ML 2 ML VIAL IV PRN (00:01)
[2019-05-31] MEDS ORDERED: POLYETHYLENE (MIRALAX) 17 GM PACK PO PRN (00:01)
[2019-05-31] MEDS ORDERED: ALUMINUM/MAGNESIUM SUSP 30 ML UDC PO PRN (00:01)
--- NOTE | 2019-05-31 00:13 | History & Physical Report ---
Date of Service May 30, 2019 Assessment & Plan (1) Sepsis: Likely secondary to complicated UTI (2) Hydronephrosis: Status post Cystoscopy, Bilateral Ureteral Stent Insertion(Bilateral) (3) Acute UTI: Complicated UTI present on admission likely due to obstructive uropathy Acute kidney injury on chronic kidney disease stage III Metabolic encephalopathy secondary to above Hematuria secondary to UTI and obstructive uropathy Status post bilateral cystoscopy and stent placement Cefepime 1 g twice daily Urine culture/blood cultures Admit to telemetry Vitals per protocol CT head reviewed and no acute event INR is 1.6 Hold anticoagulation for now until hematuria improved Can start heparin and Coumadin tomorrow if hematuria stops I expect metabolic encephalopathy to improve with antibiotics and IV fluid hydration, CT head was within normal limits (4) GERD (gastroesophageal reflux disease): Continue ranitidine (5) Atrial flutter with rapid ventricular response: Currently actually developed bradycardia Hold Cardizem and metoprolol Restart only hydralazine Allow permissive slight hypertension that might help with renal perfusion (6) 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: Continue antiandrogen therapy (7) Acute metabolic encephalopathy: As above History of Present Illness 68 years old man with past medical history of metastatic prostate cancer, diverticulosis, essential hypertension, dyslipidemia, GERD, obstructive sleep apnea, and anxiety, GI bleed, atrial flutter/fibrillation status post watchman device, unfortunately he had to interrupt the anticoagulation therapy post inst allment of the device for a biopsy for his metastatic cancer, that led to formation of blood clot on the device, currently on Coumadin with a subtherapeutic INR of 1.6. Patient has bilateral severe hydroureter/hydronephrosis from his metastatic cancer used to have ureteral stents that were removed 4 days prior to admission. After that patient developed progressive lower abdominal pain and fever p resented to the ED with elevated white blood cell count tachycardia and fever found to have a urinary tract infection on UA analysis urologist was consulted as CT scan showed persistent bilateral severe hydroureter/hydronephrosis, patient was taken to the OR for Cystoscopy, Bilateral Ureteral Stent Insertion(Bilateral) after the procedure patient is slightly confused but follows simple commands. Primary Care Provider: Bruce Ness MD Allergies Allergy/AdvReac Type Severity Reaction Status Date / Time hazelnut Allergy Severe Swelling Verified 05/30/19 17:14 of Lip/Tongue/Throat atorvastatin Allergy Intermediate "FUZZY Verified 05/30/19 17:14 THOUGHT PROCESS AND DEPRESSION LIKE SYMPTOMS" lisinopril Allergy Intermediate SWELLING Verified 05/30/19 17:14 IN ANKLES [id number]-[id number]-[id number] Reductase Allergy Unknown Unknown Verified 05/30/19 17:14 Inhibitor Home Medications Home Medications Medication Instructions Recorded Confirmed Type Centrum Silver 1 tab PO QAM 07/04/18 05/30/19 History metoprolol tartrate 50 mg PO AMPM 07/04/18 05/30/19 History ranitidine HCl 150 mg PO QPM 07/04/18 05/30/19 History cholecalciferol (vitamin D3) 400 unit PO QAM 01/09/19 05/30/19 History [Vitamin D3] loratadine 10 mg PO DAILY PRN 01/09/19 05/30/19 History melatonin 2.5 mg PO HS 01/09/19 05/30/19 History ezetimibe 10 mg PO QPM 03/11/19 05/30/19 History diltiazem HCl 180 mg PO QAM 30 Days #30 cap 03/19/19 05/30/19 Rx metoprolol tartrate 50 mg tablet 25 mg PO QDL tab 04/19/19 05/30/19 History digoxin 125 mcg PO Q OTHER DAY 04/30/19 05/30/19 History warfarin 5 mg PO 3XWK 04/30/19 05/30/19 History bicalutamide 50 mg PO DAILY 05/10/19 05/30/19 History terazosin 2 mg PO HS 05/16/19 05/30/19 History bupropion HCl XL 150 mg 24 hr 150 mg PO BID tab 05/30/19 05/30/19 History tablet, extended release hydralazine 50 mg tablet 75 mg PO TID #100 tab 05/30/19 05/30/19 History losartan 100 mg tablet 100 mg PO DAILY #90 tab 05/30/19 05/30/19 History potassium chloride ER 10 mEq 10 meq PO QAM cap 05/30/19 05/30/19 History capsule,extended release warfarin 2.5 mg PO 4XWK 05/30/19 05/30/19 History Past Med/Surg History Medical History Adjustment disorder (Acute) Arthritis (Acute) HTN (hypertension) (Chronic) History of prostate cancer (Chronic) s/p surgery, radiation Anemia Anxiety Atrial fibrillation and flutter dx years ago - follows w/ Dr. Martinez - on warfarin CKD (chronic kidney disease) Last creatinine from 05/05/19 was 1.5 Diverticulosis GERD (gastroesophageal reflux disease) Hyperlipidemia Hypertension Intracardiac thrombus Patient on coumadin Kidney stones Osteoarthritis Pneumonia 03/11/19 admitted for pneumonia, resolved per patient. 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 Sleep apnea CPAP Sleep apnea uses CPAP Surgical History Status post implantation of artificial urinary sphincter (Chronic) Colon polyp REMOVED (BENIGN) VIA EGD H/O eye surgery RT EYE-LASER PROCEDURE History of colonoscopy History of esophagogastroduodenoscopy (EGD) History of lithotripsy History of prostatectomy History of tonsillectomy History of tooth extraction History of transesophageal echocardiography (CARMEN) Presence of Watchman left atrial appendage closure device 12/2018 - isinger Family History Brother Family history of diabetes mellitus Family hx of colon cancer Alcohol abuse Cancer Hypertension Lung disease Cardiac disorder Father Alcohol abuse Hypertension Cardiac disorder Cancer Unknown Myocardial infarction Prostate cancer Colorectal cancer Social History Preferred Language: Finnish Communication Ability: Effective Driftman Required: No Beliefs That Will Affect Care: None marital status: Current Living Situation: Spouse Other Information That Helps Us Care for You: No Feels Safe at Home: Yes Safety Concerns: Feels Safe At This Time Smoking Status: Never smoker Second Hand Exposure: No ; Hx Alcohol Use: No Hx Substance Use: No Review of Systems Review of Systems: Due to patient mental status review of system was unobtainable/unreliable We'll attempt to obtain review of system as needed from staff and family Physical Exam Physical Exam: Physical examination General patient appears dehydrated in moderate acute distress HEENT: Atraumatic , normocephalic /no jaundice /no pallor /anicteric /no dry mucous membrane /normal external ear inspection Neck: Supple /no swelling /central trach Heart: S1/S2 normal/regular rate and rhythm/no gallop /no rub /no murmur Lungs: Clear to auscultation bilaterally/normal chest with expansion/no rhonchi/no rales/no wheezing/no use of accessory muscles of respiration Abdomen: Slight tenderness in lower abdomen no guarding/no rebound/no organomegaly/no pulsatile mass Musculoskeletal: No swelling/no edema/no tenderness/normal range of motion Neuro exam: Awake alert slightly confused, slightly disoriented, but follows simple command and moves all extremities Psychiatric evaluation: Unable to evaluate Skin: No rash on exposed skin area/no erythema Extremity: Normal pulse/no pitting edema/no clubbing or cyanosis Results & Data Vital Signs (Past 12 Hours) Vital Signs Temp Pulse Pulse Resp BP BP Pulse Ox 05/30/19 23:00 37.6 C H 56 L 18 149/68 H 97 05/30/19 22:38 37.4 C 57 L 16 147/72 H 97 05/30/19 22:05 37.4 C 58 L 17 149/82 H 96 05/30/19 21:35 56 L 16 154/72 H 98 05/30/19 21:05 37.9 C H 62 16 158/60 H 97 05/30/19 20:50 56 L 17 164/78 H 98 05/30/19 20:35 37.8 C H 66 20 163/71 H 98 05/30/19 20:20 64 20 137/72 98 05/30/19 20:05 38.2 C H 63 22 159/72 H 98 05/30/19 19:55 62 21 147/62 H 100 05/30/19 19:49 38 C H 65 19 142/66 H 97 05/30/19 18:13 39.5 C H 65 22 158/69 H 94 05/30/19 18:00 64 27 H 158/70 H 05/30/19 17:46 65 20 168/71 H 05/30/19 17:15 64 20 05/30/19 17:08 65 96 05/30/19 17:00 64 18 05/30/19 16:51 95 05/30/19 16:45 66 22 96 05/30/19 16:44 65 23 96 05/30/19 16:40 66 22 220/83 H 95 05/30/19 16:28 39.0 C H 68 20 157/72 H 97 Code Status & VTE Plan VTE Prophylaxis Plan VTE Prophylaxis will be ordered: Yes PG Care Time/CCT Total # of Minutes Spent Total Time Spent with Patient: Total time spent is greater than 50% in coordination of care (as documented) at patient's floor/unit and/or counseling patient: (1) Sepsis Sepsis acute organ dysfunction status: unspecified Sepsis type: sepsis due to unspecified organism Qualified Code(s): A41.9 - Sepsis, unspecified organism (2) Hydronephrosis Hydronephrosis type: unspecified Qualified Code(s): N13.30 - Unspecified h ydronephrosis
[2019-05-31] MEDS ORDERED: SODIUM CHLORIDE 0.9% 1000ML 1,000 ML IV SCH (00:15)
[2019-05-31] MEDS: POTASSIUM CHLORIDE / WTR 10 MEQ/100 ML PLCT IV SCH ×3 (00:40→02:47)
[2019-05-31] MEDS ORDERED: ACETAMINOPHEN 325 MG TAB PO PRN (05:09)
[2019-05-31] MEDS ORDERED: ACETAMINOPHEN 325 MG TAB ONE (05:12)
[2019-05-31 07:02] LABS: Basophils # (auto) 0.02 K/uL (0-0.2); Basophils % (auto) 0.2 %; Eosinophils # (auto) 0.04 K/uL (0-0.5); Eosinophils % (auto) 0.3 %; Hematocrit (blood only) 32.7 % (42-52); Hemoglobin 11.4 g/dL (14.0-18.0); Immature Granulocytes # (auto) 0.04 K/uL (0.00-0.02); Immature Granulocytes % (auto) 0.3 %; Lymphocytes # (auto) 1.29 K/uL (1.2-3.4); Lymphocytes % (auto) 11.1 %; Mean Corpuscular Hemoglobin 34.7 pg (25-34); Mean Corpuscular Hgb Conc 34.9 g/dL (32-36); Mean Corpuscular Volume 99.4 fL (80-100); Mean Platelet Volume 10.7 fL (7.4-10.4); Monocytes # (auto) 1.51 K/uL (0.11-0.59); Monocytes % (auto) 12.9 %; Neutrophils # (auto) 8.77 K/uL (1.4-6.5); Neutrophils % (auto) 75.2 %; Platelet Count 168 K/uL (130-400); RDW Coefficient of Variation 13.9 % (11.5-14.5); Red Blood Count 3.29 M/uL (4.7-6.1); White Blood Count 11.67 K/uL (4.8-10.8)
[2019-05-31 07:30] LABS: Albumin Level 3.1 gm/dl (3.4-5.0); BUN Creatinine Ratio 12.8 (10-20); Calcium 8.9 mg/dl (8.5-10.1); Creatinine Clr Calc Pharmacy 47.4 ml/min; Est GFR (African American) 45.4; Est GFR (Non-African American) 39.2; Magnesium 1.9 mg/dl (1.8-2.4); Potassium 3.3 mmol/L (3.5-5.1)
[2019-05-31 07:33] LABS: Albumin Globulin Ratio 0.8 (0.9-2); Total Protein 7.1 gm/dl (6.4-8.2)
[2019-05-31] MEDS: HydrALAZINE TAB 50 MG TAB PO SCH ×2 (09:12→14:39)
[2019-05-31] MEDS: POTASSIUM CHLORIDE 10 MEQ TABCR PO SCH (09:13)
[2019-05-31] MEDS: BICALUTAMIDE 50 MG TAB PO SCH (09:13)
[2019-05-31] MEDS: BuPROPion XL 150 MG TABCR PO SCH ×2 (09:13→20:27)
[2019-05-31] MEDS ORDERED: POTASSIUM CHLORIDE 10 MEQ TABCR PO STA (09:18)
[2019-05-31] MEDS ORDERED: MAGNESIUM SULFATE / D5W 1 GM/100 ML BAG IV ONE (09:30)
--- NOTE | 2019-05-31 12:15 | Urology Progress Note ---
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 - Cr improving today - subjectively feeling better - all cultures (blood and urine) pending - when cultures finalized - adjust as appropriate to oral abx - we can arrange outpt f/u Subjective Much better this AM mentation has improved no fevers/chills this am minimal discomfort from the stents urine clear -voiding well Physical Exam Constitutional: well developed and well nourished Respiratory: no respiratory distress Cardiovascular: Extremities: no pedal edema Gastrointestinal (Abdomen): Inspection/Auscultation: abdomen normal to inspection Results & Data Vital Signs (Past 12 Hours) Vital Signs Temp Pulse Resp BP Pulse Ox 05/31/19 11:03 37.5 C 62 19 164/71 H 98 05/31/19 06:51 37.3 C 58 L 18 159/76 H 97 05/31/19 03:34 37.4 C 60 22 166/68 H 95 05/31/19 02:04 37.5 C 62 18 157/77 H 96 05/31/19 01:04 37.6 C H 55 L 20 163/71 H 98 PG Care Time/CCT Total # of Minutes Spent Total Time Spent with Patient: Total time spent is greater than 50% in coordination of care (as documented) at patient's floor/unit and/or counseling patient: (1) Hydronephrosis Hydronephrosis type: unspecified Qualified Code(s): N13.30 - Unspecified hydronephrosis
[2019-05-31] MEDS ORDERED: Nursing to Pharmacy Communication ONE (13:32)
--- NOTE | 2019-05-31 15:00 | Hospitalist Progress Note ---
Date of Service May 31, 2019 Assessment & Plan (1) Acute UTI: Complicated UTI present on admission likely due to obstructive uropathy. Acute kidney injury on chronic kidney disease stage III. - Status post bilateral cystoscopy and stent placement with Dr. Schmitt on 05/30. - Continue cefepime 1 g twice daily - Follow urine culture/blood cultures (2) Sepsis: Along with acute metabolic & infectious encephalopathy. Secondary to complicated UTI. 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 - Status post cystoscopy, bilateral ureteral stent insertion with Dr. Schmitt on 05/30. (4) HTN (hypertension): Presently 165/70. - Continue home beta-faith - Add his calcium channel faith as HR tolerates - No longer on hydralazine or losartan - Initial med rec was incorrect. - Monitor BP (5) Atrial flutter with rapid ventricular response: Paroxsymal. Currently in sinus rhythm. - Hold Cardizem - Restart beta-faith (6) GERD (gastroesophageal reflux disease): Continue ranitidine (7) 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: - Continue antiandrogen therapy (8) DVT prophylaxis: SCDs - No chemoprophylaxis given the procedure and hematuria Subjective Feeling quite well this morning. No dysuria, no abdominal pain, no flank pain. Review of Systems Review of Systems: All systems reviewed & are unremarkable except as noted in HPI & below Physical Exam Constitutional: WD/WN, vitals as above Eyes: EOM intact bilaterally; no conjunctival abnormality ENMT: external ear and nose normal, oropharynx normal Neck: trachea midline, no thyromegaly normal visual inspection Respiratory: normal respiratory effort, lungs clear to auscultation no respiratory distress Cardiovascular: RRR, no murmur, no edema Gastrointestinal (Abdomen): Inspection/Auscultation: abdomen normal to inspection; abdomen not distended Musculoskeletal: no cyanosis or clubbing, extremities motor strength 5/5 Skin: no rashes, warm and dry Neurologic: moves all extremities and awake Psychiatric: Orientation: alert, oriented to person and cooperative Results & Data Vital Signs (Past 12 Hours) Vital Signs Temp Pulse Resp BP Pulse Ox 05/31/19 11:03 37.5 C 62 19 164/71 H 98 05/31/19 06:51 37.3 C 58 L 18 159/76 H 97 05/31/19 03:34 37.4 C 60 22 166/68 H 95 PG Care Time/CCT Total # of Minutes Spent Total Time Spent with Patient: Total time spent is greater than 50% in coordination of care (as documented) at patient's floor/unit and/or counseling patient: (1) Hydronephrosis Hydronephrosis type: unspecified Qualified Code(s): N13.30 - Unspecified hydronephrosis (2) Sepsis Sepsis acute organ dysfunction status: unspecified Sepsis type: sepsis due to unspecified organism Qualified Code(s): A41.9 - Sepsis, unspecified organism
[2019-05-31] MEDS ORDERED: DIGOXIN 0.125 MG TAB PO SCH (16:00)
[2019-05-31] MEDS: METOPROLOL TARTRATE 50 MG TAB PO SCH ×2 (16:12→20:30)
[2019-05-31] MEDS ORDERED: HYDROCODONE/ACETAMOPHEN 5/325MG TAB PO ONE (20:10)
[2019-05-31] MEDS: TERAZOSIN HCL 1 MG CAP PO SCH (20:30)
[2019-05-31] MEDS: EZETIMIBE 10 MG TABLET PO SCH (20:30)
[2019-05-31] MEDS ORDERED: MELATONIN 2.5 MG PO SCH (21:00)
[2019-06-01] MEDS: BuPROPion XL 150 MG TABCR PO SCH (08:35)
[2019-06-01] MEDS: METOPROLOL TARTRATE 50 MG TAB PO SCH ×3 (08:36→20:34)
[2019-06-01] MEDS: POTASSIUM CHLORIDE 10 MEQ TABCR PO SCH (08:37)
[2019-06-01] MEDS: BICALUTAMIDE 50 MG TAB PO SCH (08:37)
[2019-06-01 09:16] LABS: Hematocrit (blood only) 34.3 % (42-52); Hemoglobin 11.9 g/dL (14.0-18.0); Mean Corpuscular Hemoglobin 34.5 pg (25-34); Mean Corpuscular Hgb Conc 34.7 g/dL (32-36); Mean Corpuscular Volume 99.4 fL (80-100); Platelet Count 223 K/uL (130-400); RDW Coefficient of Variation 13.7 % (11.5-14.5); RDW Standard Deviation 49.4 fL (36.4-46.3); Red Blood Count 3.45 M/uL (4.7-6.1); White Blood Count 10.37 K/uL (4.8-10.8)
[2019-06-01 09:30] LABS: INR 1.3 (0.9-1.1); Prothrombin Time 12.8 Seconds (9.0-12.0)
[2019-06-01 10:05] LABS: BUN Creatinine Ratio 14.2 (10-20); Calcium 9.1 mg/dl (8.5-10.1); Creatinine Clr Calc Pharmacy 52.7 ml/min; Est GFR (African American) 51.7; Est GFR (Non-African American) 44.6; Potassium 2.7 mmol/L (3.5-5.1)
--- NOTE | 2019-06-01 10:56 | Urology Progress Note ---
Date of Service June 01, 2019 Assessment & Plan (1) Hydronephrosis: Seen the lack of organisms on culture would consider empiric antibiotic coverage eg. Cipro or Bactrim for 5 days postop. Otherwise patient's Cr appears to be back at baseline and he is clinically improved. Should be stable for outpatient f/u in 1-2 weeks to coordinate stent removal with Dr. Schmitt. Patient vocalizes good understanding of the treatment plan. Thank you for allowing us to participate in this patient's care. Please recall our service PRN any new questions or concerns. Subjective Patient is a pleasant 68-year-old male, postoperative day #2 status post cystoscopy and bilateral stent replacement. His history of bilateral stones and ureteroscopy with stricture and stent placement is noted. His history of metastatic prostate cancer status post prostatectomy, salvage radiation and androgen deprivation is noted.This is being managed at [facility] on a trial basis. It appears his most recent PSA is approximately 25 in February 2019. He reports that he feels much improved, closer to baseline. He feels the stents are significantly more comfortable than the previous set which were in place moved as an outpatient. He is established locally with Dr. Schmitt for his stone disease recently, cancer has been managed at [facility] as noted.. Past inpatient and outpatient notes are reviewed. He notes minimal hematuria, AUS working well. His recent UC&S and BC&S are noted to be negative. Review of Systems Constitutional: no fever and no chills Eyes: no diplopia Ear, Nose, Mouth, Throat: no ear trauma Respiratory: no hemoptysis Cardiovascular: no chest pain Integumentary: no acne and no boil Neurologic: no paralysis Psychiatric: no hopelessness Allergy / Immunological: no tongue swelling Physical Exam Constitutional: well developed and well nourished; no acute distress Eyes: eyes not dysmorphic ENMT: Ears: no external ear abnormality Neck: trachea midline; no anterior neck swelling Respiratory: no respiratory distress and does not use accessory muscles Cardiovascular: Vessels: radial pulses present Gastrointestinal (Abdomen): Inspection/Auscultation: abdomen not distended Percussion/Palpation: abdomen soft; abdomen nontender Musculoskeletal: Head/Neck/Chest: normocephalic and neck supple Skin: normal turgor Neurologic: awake; not obtunded Psychiatric: Orientation: oriented x 3 Lymphatic: no lymphadenopathy Results & Data Vital Signs (Past 12 Hours) Vital Signs Temp Pulse Resp BP Pulse Ox 06/01/19 07:35 37.3 C 56 L 19 160/77 H 94 06/01/19 03:34 37.3 C 55 L 16 172/74 H 99 06/01/19 00:13 37.1 C 53 L 18 164/84 H 96 Laboratory Results Laboratory Results - last 48 hr 05/30/19 05/30/19 05/30/19 17:00 17:00 17:00 WBC 14.15 H RBC 3.45 L Hgb 11.9 L Hct 34.2 L MCV 99.1 MCH 34.5 H MCHC 34.8 RDW Std Deviation 51.8 H RDW Coeff of Lauren 14.4 Plt Count 179 MPV 11.1 H Immature Gran % (Auto) 0.4 Neut % (Auto) 84.8 Lymph % (Auto) 3.9 [place] % (Auto) 10.6 Eos % (Auto) 0.1 Baso % (Auto) 0.2 Immature Gran # (Auto) 0.06 H Neut # (Auto) 11.99 H Lymph # (Auto) 0.55 L [place] # (Auto) 1.50 H Eos # (Auto) 0.02 Baso # (Auto) 0.03 PT 15.5 H INR 1.6 H APTT 31.4 H PTT Ratio 1.2 Sodium 139 Potassium 3.0 L Chloride 104 Carbon Dioxide 25 Anion Gap 10.0 BUN 25 H Creatinine 2.37 H Est Cr Clr Drug Dosing 35.4 Est GFR ( Amer) 31.9 Est GFR (Non-Af Amer) 27.5 BUN/Creatinine Ratio 10.5 Glucose 163 H Lactate Calcium 9.0 Magnesium Total Bilirubin 0.9 AST 24 ALT 27 Alkaline Phosphatase 78 Total Protein 7.4 Albumin 3.5 Globulin 3.9 Albumin/Globulin Ratio 0.9 Urine Color Urine Appearance Urine pH Ur Specific [place] Urine Protein Urine Glucose (UA) Urine Ketones Urine Blood Urine Nitrite Urine Bilirubin Urine Urobilinogen Ur Leukocyte Esterase Urine WBC (Auto) Urine RBC (Auto) U Hyaline Cast (Auto) U Epithel Cells (Auto) Urine Bacteria (Auto) Urine Yeast Hepatitis C Ab Screen 05/30/19 05/30/19 05/31/19 17:00 20:55 00:12 WBC RBC Hgb Hct MCV MCH MCHC RDW Std Deviation RDW Coeff of Lauren Plt Count MPV Immature Gran % (Auto) Neut % (Auto) Lymph % (Auto) [place] % (Auto) Eos % (Auto) Baso % (Auto) Immature Gran # (Auto) Neut # (Auto) Lymph # (Auto) [place] # (Auto) Eos # (Auto) Baso # (Auto) PT INR APTT PTT Ratio Sodium Potassium Chloride Carbon Dioxide Anion Gap BUN Creatinine Est Cr Clr Drug Dosing Est GFR ( Amer) Est GFR (Non-Af Amer) BUN/Creatinine Ratio Glucose Lactate 3.8 H* 1.6 Calcium Magnesium Total Bilirubin AST ALT Alkaline Phosphatase Total Protein Albumin Globulin Albumin/Globulin Ratio Urine Color Yellow Urine Appearance Clear Urine pH 7.0 Ur Specific [place] 1.013 Urine Protein 2+ H Urine Glucose (UA) Negative Urine Ketones Negative Urine Blood 3+ H Urine Nitrite Negative Urine Bilirubin Negative Urine Urobilinogen Negative Ur Leukocyte Esterase 2+ H Urine WBC (Auto) >30 H Urine RBC (Auto) >30 H U Hyaline Cast (Auto) 1-5 U Epithel Cells (Auto) 10-20 H Urine Bacteria (Auto) Negative Urine Yeast Not Reportable Hepatitis C Ab Screen 05/31/19 05/31/19 05/31/19 06:47 06:47 06:47 WBC 11.67 H RBC 3.29 L Hgb 11.4 L Hct 32.7 L MCV 99.4 MCH 34.7 H MCHC 34.9 RDW Std Deviation 51.0 H RDW Coeff of Lauren 13.9 Plt Count 168 MPV 10.7 H Immature Gran % (Auto) 0.3 Neut % (Auto) 75.2 Lymph % (Auto) 11.1 [place] % (Auto) 12.9 Eos % (Auto) 0.3 Baso % (Auto) 0.2 Immature Gran # (Auto) 0.04 H Neut # (Auto) 8.77 H Lymph # (Auto) 1.29 [place] # (Auto) 1.51 H Eos # (Auto) 0.04 Baso # (Auto) 0.02 PT INR APTT PTT Ratio Sodium 141 Potassium 3.3 L Chloride 105 Carbon Dioxide 29 Anion Gap 7.0 BUN 23 H Creatinine 1.77 H D Est Cr Clr Drug Dosing 47.4 Est GFR ( Amer) 45.4 Est GFR (Non-Af Amer) 39.2 BUN/Creatinine Ratio 12.8 Glucose 115 H Lactate Calcium 8.9 Magnesium 1.9 Total Bilirubin 1.0 AST 20 ALT 23 Alkaline Phosphatase 78 Total Protein 7.1 Albumin 3.1 L Globulin 4.0 Albumin/Globulin Ratio 0.8 L Urine Color Urine Appearance Urine pH Ur Specific [place] Urine Protein Urine Glucose (UA) Urine Ketones Urine Blood Urine Nitrite Urine Bilirubin Urine Urobilinogen Ur Leukocyte Esterase Urine WBC (Auto) Urine RBC (Auto) U Hyaline Cast (Auto) U Epithel Cells (Auto) Urine Bacteria (Auto) Urine Yeast Hepatitis C Ab Screen Neg 06/01/19 06/01/19 06/01/19 08:37 08:37 08:37 WBC 10.37 RBC 3.45 L Hgb 11.9 L Hct 34.3 L MCV 99.4 MCH 34.5 H MCHC 34.7 RDW Std Deviation 49.4 H RDW Coeff of Lauren 13.7 Plt Count 223 MPV 11.0 H Immature Gran % (Auto) Neut % (Auto) Lymph % (Auto) [place] % (Auto) Eos % (Auto) Baso % (Auto) Immature Gran # (Auto) Neut # (Auto) Lymph # (Auto) [place] # (Auto) Eos # (Auto) Baso # (Auto) PT 12.8 H INR 1.3 H APTT PTT Ratio Sodium 142 Potassium 2.7 L D Chloride 103 Carbon Dioxide 30 Anion Gap 9.0 BUN 23 H Creatinine 1.59 H Est Cr Clr Drug Dosing 52.7 Est GFR ( Amer) 51.7 Est GFR (Non-Af Amer) 44.6 BUN/Creatinine Ratio 14.2 Glucose 144 H Lactate Calcium 9.1 Magnesium Total Bilirubin AST ALT Alkaline Phosphatase Total Protein Albumin Globulin Albumin/Globulin Ratio Urine Color Urine Appearance Urine pH Ur Specific [place] Urine Protein Urine Glucose (UA) Urine Ketones Urine Blood Urine Nitrite Urine Bilirubin Urine Urobilinogen Ur Leukocyte Esterase Urine WBC (Auto) Urine RBC (Auto) U Hyaline Cast (Auto) U Epithel Cells (Auto) Urine Bacteria (Auto) Urine Yeast Hepatitis C Ab Screen PG Care Time/CCT Total # of Minutes Spent Total Time Spent with Patient: Total time spent is greater than 50% in coordination of care (as documented) at patient's floor/unit and/or counseling patient: (1) Hydronephrosis Hydronephrosis type: unspecified Qualified Code(s): N13.30 - Unspecified hydronephrosis
[2019-06-01] MEDS ORDERED: POTASSIUM CHLORIDE IV ONE (13:30)
[2019-06-01] MEDS ORDERED: SODIUM CHLORIDE 0.9% IV ONE (13:30)
[2019-06-01] MEDS: POTASSIUM CHLORIDE PWD 20 MEQ PACK PO SCH (14:59)
--- NOTE | 2019-06-01 16:15 | Hospitalist Progress Note ---
Date of Service June 01, 2019 Assessment & Plan (1) Acute UTI: Complicated UTI present on admission likely due to obstructive uropathy. Acute kidney injury on chronic kidney disease stage III. - Status post bilateral cystoscopy and stent placement with Dr. Schmitt on 05/30. - Urine culture growing Corynebacterium sp. - This is the 4th urine culture since 10/2018 with Corynebacterium spc. The operative report doesn't indicate purulent drainage from the kidneys after opening the ureters; however, the CT a/p on 05/30 showed left perinephric infiltration. Given the repeated cultures, I did ask the Micro lab to speciate it and get sensitivities if possible. It will take several days as it actually has to be sent out. In the meantime, discussed with pharmacy who feel that Unasyn is a good first step. Per urology notes, they feel he is probably not infected and could be sent home today or tomorrow. (2) Sepsis: Along with acute metabolic & infectious encephalopathy. Secondary to complicated UTI. 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 - Status post cystoscopy, bilateral ureteral stent insertion with Dr. Schmitt on 05/30. (4) HTN (hypertension): Presently 165/70. - Continue home beta-faith - Add his calcium channel faith as HR tolerates - No longer on hydralazine or losartan - Initial med rec was incorrect. - Monitor BP (5) Atrial flutter with rapid ventricular response: Paroxsymal. Currently in sinus rhythm. - Hold Cardizem - Continue beta-faith (6) GERD (gastroesophageal reflux disease): Continue ranitidine (7) 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: - Continue antiandrogen therapy (8) DVT prophylaxis: SCDs - No chemoprophylaxis given the procedure and hematuria Subjective He is honestly feeling very well. No major concerns. Overall, he is happy with how he is doing. Review of Systems Review of Systems: All systems reviewed & are unremarkable except as noted in HPI & below Physical Exam Constitutional: WD/WN, vitals as above Eyes: EOM intact bilaterally; no conjunctival abnormality ENMT: external ear and nose normal, oropharynx normal Neck: trachea midline, no thyromegaly normal visual inspection Respiratory: normal respiratory effort, lungs clear to auscultation no respiratory distress Cardiovascular: RRR, no murmur, no edema Gastrointestinal (Abdomen): Inspection/Auscultation: abdomen normal to inspection; abdomen not distended Musculoskeletal: no cyanosis or clubbing, extremities motor strength 5/5 Skin: no rashes, warm and dry Neurologic: moves all extremities and awake Psychiatric: Orientation: alert, oriented to person and cooperative Results & Data Vital Signs (Past 12 Hours) Vital Signs Temp Pulse Resp BP Pulse Ox 06/01/19 15:49 36.9 C 55 L 18 169/88 H 98 06/01/19 12:14 63 06/01/19 11:03 36.7 C 55 L 20 163/81 H 96 06/01/19 08:15 64 06/01/19 07:35 37.3 C 56 L 19 160/77 H 94 PG Care Time/CCT Total # of Minutes Spent Total Time Spent with Patient: Total time spent is greater than 50% in coordination of care (as documented) at patient's floor/unit and/or counseling patient: (1) Sepsis Sepsis acute organ dysfunction status: unspecified Sepsis type: sepsis due to unspecified organism Qualified Code(s): A41.9 - Sepsis, unspecified organism (2) Hydronephrosis Hydronephrosis type: unspecified Qualified Code(s): N13.30 - Unspecified hydronephrosis
[2019-06-01] MEDS: AMPICILLIN/SULBACTAM SOD 3,000 MG in 0.9 % SODIUM CHLORIDE 100 ML IV SCH ×2 (16:37→22:09)
[2019-06-01] MEDS: TERAZOSIN HCL 1 MG CAP PO SCH (20:34)
[2019-06-01] MEDS: EZETIMIBE 10 MG TABLET PO SCH (20:34)
[2019-06-01] MEDS ORDERED: OXYCODONE/ACETAMINOPHEN 5mg/325mg TAB PO STA (23:39)
[2019-06-02] MEDS: AMPICILLIN/SULBACTAM SOD 3,000 MG in 0.9 % SODIUM CHLORIDE 100 ML IV SCH ×2 (03:50→09:58)
[2019-06-02 08:37] LABS: Calcium 9.2 mg/dl (8.5-10.1); Est GFR (African American) 59.2; Est GFR (Non-African American) 51.1; Magnesium 1.8 mg/dl (1.8-2.4); Potassium 3.3 mmol/L (3.5-5.1)
[2019-06-02] MEDS: POTASSIUM CHLORIDE PWD 20 MEQ PACK PO SCH (09:57)
[2019-06-02] MEDS: POTASSIUM CHLORIDE 10 MEQ TABCR PO SCH (09:57)
[2019-06-02] MEDS: BICALUTAMIDE 50 MG TAB PO SCH (09:58)
[2019-06-02] MEDS: METOPROLOL TARTRATE 50 MG TAB PO SCH ×2 (10:08→12:38)
--- NOTE | 2019-06-02 15:38 | Discharge Summary ---
Date of Service June 02, 2019 Principal Diagnosis Hydronephrosis from ureteral strictures status post bilateral ureteral stenting and possible UTI Discharge Exam Constitutional WD/WN, vitals as above Eyes EOM intact bilaterally; no conjunctival abnormality ENMT external ear and nose normal, oropharynx normal Neck trachea midline, no thyromegaly normal visual inspection Respiratory normal respiratory effort, lungs clear to auscultation no respiratory distress Cardiovascular RRR, no murmur, no edema Gastrointestinal (Abdomen) Inspection/Auscultation: abdomen normal to inspection; abdomen not distended Musculoskeletal no cyanosis or clubbing, extremities motor strength 5/5 Skin no rashes, warm and dry Neurologic moves all extremities and awake Psychiatric Orientation: alert, oriented to person and cooperative Discharge Data Allergies Allergy/AdvReac Type Severity Reaction Status Date / Time hazelnut Allergy Severe Swelling Verified 05/30/19 17:14 of Lip/Tongue/Throat atorvastatin Allergy Intermediate "FUZZY Verified 05/30/19 17:14 THOUGHT PROCESS AND DEPRESSION LIKE SYMPTOMS" lisinopril Allergy Intermediate SWELLING Verified 05/30/19 17:14 IN ANKLES Apssiqi-Ujm-Jjr Reductase Allergy Unknown Unknown Verified 05/30/19 17:14 Inhibitor Consultations 05/30/19 18:22 Consult Urology Stat ED Decision to Admit Stat Procedures Performed Operation Date: 05/30/19 18:40 Actual Procedures p Cystoscopy, Bilateral Ureteral Stent Insertion(Bilateral) - Oscar Schmitt MD Ordered Studies 05/30/19 FL KUB Routine 05/30/19 16:46 CT abd pelvis wo con Stat 05/30/19 21:41 CT head/brain wo con Stat Hospital Course (1) Acute UTI: Complicated UTI present on admission likely due to obstructive uropathy. Acute kidney injury on chronic kidney disease stage III. - Status post bilateral cystoscopy and stent placement with Dr. Schmitt on 05/30. - Urine culture growing Corynebacterium sp. - This is the 4th urine culture since 10/2018 with Corynebacterium spc. The operative report doesn't indicate purulent drainage from the kidneys after opening the ureters; however, the CT a/p on 05/30 showed left perinephric infiltration. Given the repeated similar cultures, I did ask the Micro lab to speciate it and get sensitivities if possible. It will take several days as it actually has to be sent out. In the meantime, he will be discharged on Augmentin. Can follow up outpatient. (2) Atrial flutter with rapid ventricular response: Paroxsymal. Currently in sinus rhythm. Has follow up CARMEN on Monday. - Restarted warfarin without bridge. Will see if he needs it any more when he meets with cardiology. - Hold Cardizem on discharge for sinus bradycardia. - Continue metoprolol on dishcarge. (3) Sepsis: Along with acute metabolic & infectious encephalopathy. Secondary to c omplicated UTI. 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 - Status post cystoscopy, bilateral ureteral stent insertion with Dr. Schmitt on 05/30. (5) HTN (hypertension): Presently 165/70. - Continue home beta-faith - Add his calcium channel faith as HR tolerates - No longer on hydralazine or losartan - Initial med rec was incorrect. - Monitor BP (6) GERD (gastroesophageal reflux disease): Continue ranitidine (7) 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: - Continue antiandrogen therapy (8) DVT prophylaxis: SCDs - No chemoprophylaxis given the procedure and hematuria Total Time Total Time Spent Total Time Spent (In Minutes): 35 Total Time Includes: Examination of the Patient, Discharge Planning and Communication With Other Providers Discharge Plan Discharge Items Patient Disposition: Home - Self-Care Reason For Visit: SEPSIS,URETERAL STRICTURE Discharge Diagnosis: Ureteral strictures and possible UTI Activity: Resume your previous activity Non-emergency contact: Primary Care Provider, Surgeon and Software Quality Tester Call non-emergency contact if: your symptoms worsen and your temperature is above 101 Follow-up/Referrals: ,Bruce Mcneil MD [Primary Care Provider] - Oscar Schmitt MD [Physician] - Diet: Heart Healthy Addtl Attending Provider Instructions: Mr. Suresh, You were admitted to the hospital with blockages of your ureters from prior cancer treatments. Dr. Schmitt re-inserted stents which relieved the pressure on your kidneys. A urine culture grew a bacteria called Corynbacterium species. This is the 4th urine culture with this bacteria. It is normally not very aggressive (virulent), but given you have had 4 cultures [address] all the way back to October 2018, I do think this may need further investigation by the urology team. We putting you on Unasyn. Further testing that should come back in the next few days should tell us what species it is and what antibiotics may be most effective against it. Please follow up with the urology office for this. Second, we had to stop your warfarin (Coumadin) while you were here for your procedure and for the hematuria. Please restart your warfarin at your normal regimen. Follow up with the [facility] to have your INR checked this week. Finally, your heart was in sinus rhythm while here. Please follow up with your [facility] cardiologists to get your CARMEN and determine next steps. Please hold your diltiazem until you see them in the office as I do not want your heart rate to go too low. Pending Studies at Discharge: Yes (Speciation and antibiotic suscibilities of the urine culture from 05/30/19) Stand-Alone Forms: My [facility] Medications and DC Order Prescriptions: New amoxicillin-pot clavulanate 875-125 mg tablet 1 tab PO Q12H Qty: 10 RF: 0 Continued metoprolol tartrate 50 mg Tablet 50 mg PO AMPM RF: 0 ranitidine HCl 150 mg Capsule 150 mg PO QPM RF: 0 Centrum Silver 0.4-300-250 mg-mcg-mcg Tablet 1 tab PO QAM RF: 0 potassium chloride 10 mEq capsule, extended release 10 meq PO QAM RF: 0 loratadine 10 mg Tablet 10 mg PO DAILY PRN (Reason: allergies) RF: 0 cholecalciferol (vitamin D3) [Vitamin D3] 400 unit Tablet,Chewable 400 unit PO QAM RF: 0 melatonin 2.5 mg Tablet,Chewable 2.5 mg PO HS RF: 0 metoprolol tartrate 50 mg tablet 25 mg PO QDL RF: 0 warfarin 5 mg Tablet 5 mg PO 3XWK RF: 0 digoxin 125 mcg tablet 125 mcg PO Q OTHER DAY RF: 0 bicalutamide 50 mg Tablet 50 mg PO DAILY RF: 0 terazosin 2 mg Capsule 2 mg PO HS RF: 0 warfarin 5 mg Tablet 2.5 mg PO 4XWK RF: 0 ezetimibe 10 mg tablet 10 mg PO QPM RF: 0 Discontinued diltiazem HCl 180 mg capsule,extended release 24 hr 180 mg PO QAM 30 Days Qty: 30 RF: 3 Discharge Orders: Discharge Order (Routine); Ordered 06/02/19 Ordered By: Bandar Vallejo Admission Data Admit Date/Time: 05/30/19 20:16 Attending Provider: Bandar Vallejo Admit Provider: Tamara Alan Primary Care Provider: Bruce Ness Other Providers: Oscar Schmitt ; Bandar Vallejo Other Interventions: Discharge Summary Assessment (RN) Last Done: 06/02/19 13:45 DC Date/Time DO NOT enter until pt leaves facility: 06/02/19 14:59
== END 2019-06-02 14:59 | disposition home or self-care (01) | DRG 853 ==
LOC: ED 16:25 → OR 18:59 → 2S 20:16 → SUATTDRO 20:16
DX: Z79.01 Long term (current) use of anticoagulants; G47.33 Obstructive sleep apnea (adult) (pediatric); G93.41 Metabolic encephalopathy; F43.20 Adjustment disorder, unspecified; C61 Malignant neoplasm of prostate; N18.3 Chronic kidney disease, stage 3 (moderate); A41.9 Sepsis, unspecified organism; C78.7 Secondary malignant neoplasm of liver and intrahepatic bile duct; N17.9 Acute kidney failure, unspecified; I12.9 Hypertensive chronic kidney disease with stage 1 through stage 4 chronic kidney disease, or unspecified chronic kidney disease; N13.1 Hydronephrosis with ureteral stricture, not elsewhere classified; K21.9 Gastro-esophageal reflux disease without esophagitis; I48.91 Unspecified atrial fibrillation; I48.92 Unspecified atrial flutter; Z83.3 Family history of diabetes mellitus; N39.0 Urinary tract infection, site not specified

== ENCOUNTER 2019-07-13 16:06 | Inpatient (IN) ==
[2019-07-13] MEDS ORDERED: ACETAMINOPHEN 1,000 MG/100 ML VIAL IV STA (16:30)
[2019-07-13] MEDS ORDERED: SODIUM CHLORIDE 0.9% 1000ML 1,000 ML IV ONE (16:31)
--- NOTE | 2019-07-13 17:05 | XRay Report ---
XR chest 1V portable HISTORY: 69 years-old Male Chest Pain acute atypical chest pain COMPARISON: Chest radiograph 05/30/2018 TECHNIQUE: Portable AP view of the chest FINDINGS: Cardiomediastinal and hilar silhouettes are within normal limits. There is no pneumothorax, pleural e ffusion, focal airspace consolidation or overt pulmonary edema. Degenerative changes of the shoulders and spine. Surgical clips project over the epigastric region. IMPRESSION: No acute process. The above report was generated using voice recognition software. It may contain grammatical, syntax o r spelling errors. Electronically signed by: Aston Delgado M.D. 07/13/2019 5:03 PM
[2019-07-13 17:10] LABS: Appearance Urine Clear (Clear); Bacteria Urine Automated Negative (Negative); Bilirubin Urine Negative (Negative); Blood Urine 3+ (Negative); Color Urine Yellow; Epithelial Cell Urine Auto 20-30 /lpf (0-5); Glucose Urine UA Negative (Negative); Ketones Urine Negative (Negative); Leukocyte Esterase Urine Trace (Negative); Nitrite Urine Negative (Negative); Protein Urine 2+ (Negative); RBC Urine Automated >30 /hpf (0-4); Specific Gravity Urine 1.015 (1.000-1.030); Urobilinogen Urine Negative (Negative)
[2019-07-13 17:27] LABS: Basophils # (auto) 0.03 K/uL (0-0.2); Basophils % (auto) 0.3 %; Hematocrit (blood only) 37.3 % (42-52); Hemoglobin 13.4 g/dL (14.0-18.0); Immature Granulocytes # (auto) 0.02 K/uL (0.00-0.02); Immature Granulocytes % (auto) 0.2 %; Lymphocytes # (auto) 0.98 K/uL (1.2-3.4); Lymphocytes % (auto) 9.6 %; Mean Corpuscular Hemoglobin 33.9 pg (25-34); Mean Corpuscular Hgb Conc 35.9 g/dL (32-36); Mean Corpuscular Volume 94.4 fL (80-100); Mean Platelet Volume 11.1 fL (7.4-10.4); Monocytes # (auto) 0.96 K/uL (0.11-0.59); Monocytes % (auto) 9.4 %; Neutrophils # (auto) 8.07 K/uL (1.4-6.5); Neutrophils % (auto) 79.5 %; Platelet Count 181 K/uL (130-400); RDW Standard Deviation 44.9 fL (36.4-46.3); Red Blood Count 3.95 M/uL (4.7-6.1); White Blood Count 10.16 K/uL (4.8-10.8)
[2019-07-13 17:52] LABS: Alanine Aminotransferase 26 U/L (12-78); Albumin Level 3.8 gm/dl (3.4-5.0); Aspartate Aminotransferase 22 U/L (15-37); BUN Creatinine Ratio 12.5 (10-20); Blood Urea Nitrogen 15 mg/dl (7-18); Calcium 9.2 mg/dl (8.5-10.1); Carbon Dioxide 30 mmol/L (21-32); Chloride 102 mmol/L (98-107); Est GFR (African American) 72.8; Est GFR (Non-African American) 62.8; Glucose 106 mg/dl (70-99); Lipase 136 U/L (73-393); Magnesium 1.8 mg/dl (1.8-2.4); Potassium 2.8 mmol/L (3.5-5.1); Sodium 140 mmol/L (136-145)
[2019-07-13 18:04] LABS: Alkaline Phosphatase 88 U/L (45-117); Bilirubin,Total 0.8 mg/dl (0.2-1); Globulin 3.8 gm/dl (2.5-4.0); Phosphorus 2.2 mg/dl (2.5-4.9); Total Protein 7.6 gm/dl (6.4-8.2)
[2019-07-13] MEDS ORDERED: IOVERSOL 100ml IV PRN (18:06)
--- NOTE | 2019-07-13 18:32 | CT Scan Report ---
ABDOMEN AND PELVIS CT WITH IV CONTRAST CT DOSE: 768.57 mGy.cm HISTORY: Acute hematuria with back pain and acute generalized abdominal pain hematuria, back, abd pa in, prostate ca TECHNIQUE: Multiaxial CT images of the abdomen and pelvis were performed following the IV administrat ion of 94 cc of Optiray 320, A dose lowering technique was utilized adhering to the principles of [place] ELYSIA. COMPARISON STUDY: CT abdomen and pelvis 05/30/2019 FINDINGS: Mild dependent subsegmental bibasilar atelectasis. No pneumatosis or pneumoperitoneum. The imaged inf erior cardiac chambers appear unremarkable. Coronary arterial calcifications are noted. 8 mm lymph no de within the right epicardial distribution as mildly decreased in size. Ill-defined wedge-shaped hyp odensity of the posterior right hepatic lobe measuring approximately 5.4 cm is unchanged from compari son. No new hepatic lesions identified. The spleen and adrenal glands are unremarkable. 7 mm hypodens e lesion of the pancreatic body on image 129 series 3 is indeterminate and may reflect a sidebranch I PMN, unchanged from comparison. Cholelithiasis without CT evidence of acute cholecystitis. Multiple bilateral renal cysts. 1.3 cm calcification of the inferior pole left kidney. Punctate nonob structing calculus of the superior pole left kidney. There are several nonobstructing calculi noted a bout the right kidney measuring up to 4 mm. Heterogeneously decreased enhancement of the right kidney with urothelial thickening of the collecting system and ureter. There is decreased hydroureteronephr osis from comparison study, now appears to be moderate bilaterally. Persistent dilation of the bilate ral ureters without obstructing calculi or lesion identified. Circumferential wall thickening of the urinary bladder with partial distention. Absent prostate. Right lower pelvis soft tissue nodule measu ring 1.5 cm previously measured approximately 1.3 cm. 1.3 cm periaortic lymph node on image 158 serie s 3 previously measured 2.2 cm. No new or progressive adenopathy. No aortic aneurysm or IVC is unrema rkable. Metallic density focus of the abdominal right lower quadrant redemonstrated. Surgical clips are noted adjacent to the proximal stomach. There is no bowel obstruction. Trace abdom inopelvic ascites. Nonspecific mild wall thickening of the distal rectum and anus, possibly posttreat ment related. Colonic diverticulosis without acute diverticulitis. Mild fecal retention. Noninflamed appendix. Tiny fat filled periumbilical hernia. Soft tissues are unremarkable. Scattered osseous scle rotic foci redemonstrated suggestive of metastasis. No acute pathologic fracture. IMPRESSION: 1. Persistent bilateral hydroureteronephrosis has moderately improved from 05/30/2019. 2. Heterogeneous enhancement of the right kidney with urothelial thickening is suggestive of polyneph ritis with pyelitis. Correlate clinically. 3. Nonobstructing bilateral nephrolithiasis. 4. Colonic diverticulosis without acute diverticulitis. 5. Cholelithiasis. 6. Decreased size of the abdominal adenopathy. 7. Small volume of pelvic ascites. 8. Additional findings as above. Electronically signed by: Aston Dlegado M.D. 07/13/2019 6:30 PM
[2019-07-13] MEDS ORDERED: CIPROFLOXACIN 400 MG/200 ML BAG IV STA (18:33)
[2019-07-13] MEDS ORDERED: POT PHOSPHATE MONOBASIC W/ SOD TAB PO STA (19:12)
[2019-07-13] MEDS ORDERED: POTASSIUM CHLORIDE 20 MEQ TABCR PO STA (19:12)
[2019-07-13] MEDS ORDERED: POTASSIUM CHLORIDE / WTR 10 MEQ/100 ML PLCT IV STA (19:12)
--- NOTE | 2019-07-13 19:12 | Emergency Department Note ---
Entered by Lennie Garcia acting as a scribe for Nicolás Smith MD History of Present Illness General Chief complaint: Hematuria Stated complaint: BLOOD IN URINE, LETHARGIC, CAN'T THINK CLEARLY Time Seen by Provider: 07/13/19 16:23 Source: patient History of Present Illness Onset (ago): day(s) (4) Location: pelvis Pain Consistency: + intermittent Quality: + other (blood in urine) Associated symptoms: + denies other symptoms (abdominal pain, congestion), + cough, + shortness of breath, + weakness and + other (body aches); no fever/chills The patient is a 69 year old male who presents to the Emergency Room with complaints of intermittent blood in his urine beginning 4 days ago. The patient reports dizziness beginning around the same time. He reports a cough with some dark phlegm, slight shortness of breath, body aches and weakness. The patient denies abdominal pain, fever, chills, and congestion. The patient states he had a Watchman Device placed in his heart for a-fib 8 months ago. He notes a blood clot in his heart was found just after the surgery, but notes it has since dissolved. He states he is on Plavix. He reports some bruising on his arms since starting the Plavix. The patient states he is currently on hormonal treatments f or prostate cancer. He reports a history of kidney stones. He denies smoking. Home Medications Home Medications Medication Instructions Recorded Confirmed Type Centrum Silver 1 tab PO QAM 07/04/18 07/13/19 History metoprolol tartrate 50 mg PO AMPM 07/04/18 07/13/19 History cholecalciferol (vitamin D3) 400 unit PO QAM 01/09/19 07/13/19 History [Vitamin D3] loratadine 10 mg PO DAILY PRN 01/09/19 07/13/19 History melatonin 2.5 mg PO HS 01/09/19 07/13/19 History ezetimibe 10 mg PO QPM 03/11/19 07/13/19 History metoprolol tartrate 50 mg tablet 25 mg PO QDL tab 04/19/19 07/13/19 History digoxin 125 mcg PO Q OTHER DAY 04/30/19 07/13/19 History terazosin 0 mg PO HS 05/16/19 07/13/19 History potassium chloride ER 10 mEq 10 meq PO QAM cap 05/30/19 07/13/19 History capsule,extended release clopidogrel 75 mg tablet 75 mg PO DAILY #90 tab 06/18/19 07/13/19 Rx omeprazole 40 mg capsule,delayed 40 mg PO DAILY #30 cap 06/18/19 07/13/19 Rx release venlafaxine ER 37.5 mg 37.5 mg PO DAILY #30 cap 06/18/19 07/13/19 Rx capsule,extended release 24 hr Allergies Allergy/AdvReac Type Severity Reaction Status Date / Time hazelnut Allergy Severe Swelling Verified 07/13/19 18:07 of Lip/Tongue/Throat atorvastatin Allergy Intermediate "FUZZY Verified 07/13/19 18:07 THOUGHT PROCESS AND DEPRESSION LIKE SYMPTOMS" lisinopril Allergy Intermediate SWELLING Verified 07/13/19 18:07 IN ANKLES Feyzjnn-Iox-Tzk Reductase Allergy Unknown Unknown Verified 07/13/19 18:07 Inhibitor Past Med/Surg History Medical History Adjustment disorder (Acute) Arthritis (Acute) HTN (hypertension) (Chronic) History of prostate cancer (Chronic) s/p surgery, radiation Anemia Anxiety Atrial fibrillation and flutter dx years ago - follows w/ Dr. Martinez - on warfarin CKD (chronic kidney disease) Last creatinine from 05/05/19 was 1.5 Diverticulosis GERD (gastroesophageal reflux disease) Hyperlipidemia Hypertension Intracardiac thrombus Patient on coumadin Kidney stones Osteoarthritis Pneumonia 03/11/19 admitted for pneumonia, resolved per patient. 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 Sleep apnea CPAP Sleep apnea uses CPAP Surgical History Status post implantation of artificial urinary sphincter (Chronic) Colon polyp REMOVED (BENIGN) VIA EGD H/O eye surgery RT EYE-LASER PROCEDURE History of colonoscopy History of esophagogastroduodenoscopy (EGD) History of lithotripsy History of prostatectomy History of tonsillectomy History of tooth extraction History of transesophageal echocardiography (CARMEN) Presence of Watchman left atrial appendage closure device 12/2018 - Sophia Family History Brother Family history of diabetes mellitus Family hx of colon cancer Alcohol abuse Cancer Hypertension Lung disease Cardiac disorder Father Alcohol abuse Hypertension Cardiac disorder Cancer Unknown Myocardial infarction Prostate cancer Colorectal cancer Social History Preferred Language: Mongolian Communication Ability: Effective Clinical Education Consultant Required: No Beliefs That Will Affect Care: None marital status: Current Living Situation: Spouse Other Information That Helps Us Care for You: No Feels Safe at Home: Yes Safety Concerns: Feels Safe At This Time Smoking Status: Never smoker Second Hand Exposure: No ; Hx Alcohol Use: No Hx Substance Use: No Review of Systems See HPI for pertinent positives & negatives. and A total of 10 systems reviewed and were otherwise negative Physical Exam Vital Signs Vital Signs - 24 hr 07/13/19 16:14 07/13/19 18:37 07/13/19 19:35 Temperature 37.2 C Temperature Source Oral Sepsis Recent Fever Within 48 Hours No Sepsis Action Taken by Nursing No Action Required Pulse Rate 63 Pulse Rate [Apical] 57 L 56 L Pulse Rhythm [Apical] Regular Regular Pulse Strength [Apical] Normal Normal Respiratory Rate 20 18 18 Respiratory Effort / Characteristics Non-Labored Non-Labored Non-Labored Spontaneous Respiratory Depth Normal Normal Normal Respiratory Pattern Regular Regular Regular Blood Pressure 161/87 H Blood Pressure [Right Arm] 176/84 H 164/80 H Blood Pressure Mean 111 Blood Pressure Mean [Right Arm] 114 108 Blood Pressure Position Sitting Blood Pressure Position [Right Arm] Sitting Lying Pulse Oximetry 98 97 98 Oxygen Delivery Method Room Air Room Air Room Air GENERAL: Awake, alert, fatigued-appearing, in no distress HENT: Normocephalic, atraumatic. Oropharynx with dry mucous membranes and otherwise unremarkable. EYES: Normal conjunctiva. Sclera non-icteric. NECK: Supple. No nuchal rigidity. FROM. No JVD. RESPIRATORY: CTAB. CARDIAC: Regular rate, normal rhythm. Extremities warm and well perfused. Pulses equal. ABDOMEN: Soft, non-distended. No tenderness to palpation. No rebound or guarding. No masses. RECTAL: Deferred. MUSCULOSKELETAL: Chest examination reveals no tenderness. The back is symmetrical on inspection without obvious abnormality. There is no CVA tenderness to palpation. No joint edema. LOWER EXTREMITIES: Calves are equal size bilaterally and non-tender. No edema. No discoloration. NEURO: Normal sensorium. No sensory or motor deficits noted. Cerebellar function intact, including finger to nose, alternating palms, heel to shepard. 5/5 strength and SILT x4 extremities. SKIN: No rash or jaundice noted. Course 162: Past medical records reviewed. The patient was evaluated in room B03. A complete history and physical exam was performed. 1834: Upon reevaluation, the patient is resting comfortably. I discussed findings and results with the patient. He verbalized agreement of the treatment plan for further management in the hospital. 1939: Upon reevaluation, I discussed findings and results with the patient. He verbalized agreement of the treatment plan. I spoke with Dr. Renae of the [facility] Hospitalist Service. The patient will be evaluated for further management and care. Administered Medications Digoxin (Lanoxin) 0.125 mg PO Q2D@1600 HIMA Stop: 08/12/19 21:51 Last Admin: 07/13/19 22:40 Dose: Not Given Documented by: [id number] Ezetimibe (Zetia) 10 mg PO QPM HIMA Stop: 08/12/19 21:51 Last Admin: 07/13/19 22:41 Dose: 10 mg Documented by: [id number] Ioversol (Optiray 320 100ml) 94 ml IV ONCE PRN PRN Reason: Interaction Checking Stop: 07/17/19 18:05 Last Admin: 07/13/19 18:06 Dose: 94 ml Documented by: [id number] Metoprolol Tartrate (Lopressor) 50 mg PO BID HIMA Stop: 08/12/19 21:51 Last Admin: 07/13/19 22:40 Dose: 50 mg Documented by: [id number] Terazosin HCl (Hytrin) 2 mg PO HS HIMA Stop: 08/12/19 21:51 Last Admin: 07/13/19 22:39 Dose: 2 mg Documented by: [id number] Discontinued Medications Acetaminophen (Ofirmev) 1,000 mg in 100 mls @ 400 mls/hr IV NOW STA Stop: 07/13/19 16:44 Last Infusion: 07/13/19 18:51 Dose: 0 mls/hr Documented by: [id number] Admin: 07/13/19 17:27 Dose: 400 mls/hr Documented by: [id number] Sodium Chloride (Nss 1000ml) 1,000 mls @ 999 mls/hr IV .Q1H1M ONE Stop: 07/13/19 17:31 Last Infusion: 07/13/19 18:51 Dose: 0 mls/hr Documented by: [id number] Admin: 07/13/19 17:27 Dose: 999 mls/hr Documented by: [id number] Ciprofloxacin (Cipro) 400 mg in 200 mls @ 100 mls/hr IV NOW STA; Protocol Stop: 07/13/19 20:32 Last Infusion: 07/13/19 22:04 Dose: 0 mls/hr Documented by: [id number] Admin: 07/13/19 19:28 Dose: 100 mls/hr Documented by: [id number] Potassium Chloride (K Chaitanya / Wtr) 10 meq in 100 mls @ 100 mls/hr IV Q1H STA Stop: 07/13/19 20:11 Last Infusion: 07/13/19 22:04 Dose: 0 mls/hr Documented by: [id number] Admin: 07/13/19 19:29 Dose: 100 mls/hr Documented by: [id number] Potassium Chloride (Klor-Con M20) 40 meq PO NOW STA Stop: 07/13/19 19:13 Last Admin: 07/13/19 19:33 Dose: 40 meq Documented by: [id number] Potassium Phosphate (Phospha 250 Neutral 155-852-130 Mg) 2 tab PO NOW STA Stop: 07/13/19 19:13 Last Admin: 07/13/19 19:34 Dose: 2 tab Documented by: [id number] Medical Decision Making Differential Diagnosis Differential diagnosis: Etiologies such as renal colic, appendicitis, diverticulitis, mesenteric isch emia, aortic pathology, infections, inflammatory bowel disease, PUD, biliary pathology, UTI, as well as others were entertained. Medical Records Attestation: I reviewed the patient's medical records. Home Medications Current Medication List: was personally reviewed by me Laboratory Data Attestation: I reviewed the patient's lab results. Result diagrams: 07/13/19 17:12 07/13/19 17:12 Lab Results 07/13/19 07/13/19 07/13/19 Range/Units 16:40 17:12 17:12 WBC 10.16 (4.8-10.8) K/uL RBC 3.95 L (4.7-6.1) M/uL Hgb 13.4 L (14.0-18.0) g/dL Hct 37.3 L (42-52) % MCV 94.4 (80-100) fL MCH 33.9 (25-34) pg MCHC 35.9 (32-36) g/dL RDW Std Deviation 44.9 (36.4-46.3) fL RDW Coeff of Lauren 13.0 (11.5-14.5) % Plt Count 181 (130-400) K/uL MPV 11.1 H (7.4-10.4) fL Immature Gran % (Auto) 0.2 % Neut % (Auto) 79.5 % Lymph % (Auto) 9.6 % Mccracken % (Auto) 9.4 % Eos % (Auto) 1.0 % Baso % (Auto) 0.3 % Immature Gran # (Auto) 0.02 (0.00-0.02) K/uL Neut # (Auto) 8.07 H (1.4-6.5) K/uL Lymph # (Auto) 0.98 L (1.2-3.4) K/uL Mccracken # (Auto) 0.96 H (0.11-0.59) K/uL Eos # (Auto) 0.10 (0-0.5) K/uL Baso # (Auto) 0.03 (0-0.2) K/uL Sodium 140 (136-145) mmol/L Potassium 2.8 L (3.5-5.1) mmol/L Chloride 102 (98-107) mmol/L Carbon Dioxide 30 (21-32) mmol/L Anion Gap 8.0 (3-11) BUN 15 (7-18) mg/dl Creatinine 1.19 (0.6-1.4) mg/dl Est Cr Clr Drug Dosing Not Reportable Est GFR ( Amer) 72.8 Est GFR (Non-Af Amer) 62.8 BUN/Creatinine Ratio 12.5 (10-20) Glucose 106 H (70-99) mg/dl Calcium 9.2 (8.5-10.1) mg/dl Phosphorus 2.2 L (2.5-4.9) mg/dl Magnesium 1.8 (1.8-2.4) mg/dl Total Bilirubin 0.8 (0.2-1) mg/dl AST 22 (15-37) U/L ALT 26 (12-78) U/L Alkaline Phosphatase 88 (45-117) U/L Troponin I 0.060 H* (0-0.045) ng/ml Total Protein 7.6 (6.4-8.2) gm/dl Albumin 3.8 (3.4-5.0) gm/dl Globulin 3.8 (2.5-4.0) gm/dl Albumin/Globulin Ratio 1.0 (0.9-2) Lipase 136 (73-393) U/L Urine Color Yellow Urine Appearance Clear (Clear) Urine pH 7.0 (4.5-7.5) Ur Specific Roff 1.015 (1.000-1.030) Urine Protein 2+ H (Negative) Urine Glucose (UA) Negative (Negative) Urine Ketones Negative (Negative) Urine Blood 3+ H (Negative) Urine Nitrite Negative (Negative) Urine Bilirubin Negative (Negative) Urine Urobilinogen Negative (Negative) Ur Leukocyte Esterase Trace H (Negative) Urine WBC (Auto) 10-30 H (0-5) /hpf Urine RBC (Auto) >30 H (0-4) /hpf U Hyaline Cast (Auto) 1-5 (0-5) /lpf U Epithel Cells (Auto) 20-30 H (0-5) /lpf Urine Bacteria (Auto) Negative (Negative) Imaging Data Radiologist's Impression: Radiology results as stated below per my review and the radiologist's interpretation: XR chest 1V portable HISTORY: 69 years-old Male Chest Pain acute atypical chest pain COMPARISON: Chest radiograph 05/30/2018 TECHNIQUE: Portable AP view of the chest FINDINGS: Cardiomediastinal and hilar silhouettes are within normal limits. There is no pneumothorax, pleural effusion, focal airspace consolidation or overt pulmonary edema. Degenerative changes of the shoulders and spine. Surgical clips project over the epigastric region. IMPRESSION: No acute process. The above report was generated using voice recognition software. It may contain grammatical, syntax or spelling errors. Electronically signed by: Aston Delgado M.D. 07/13/2019 5:03 PM ABDOMEN AND PELVIS CT WITH IV CONTRAST CT DOSE: 768.57 mGy.cm HISTORY: Acute hematuria with back pain and acute generalized abdominal pain hematuria, back, abd pain, prostate ca TECHNIQUE: Multiaxial CT images of the abdomen and pelvis were performed following the IV administration of 94 cc of Optiray 320, A dose lowering technique was utilized adhering to the principles of ALARA. COMPARISON STUDY: CT abdomen and pelvis 05/30/2019 FINDINGS: Mild dependent subsegmental bibasilar atelectasis. No pneumatosis or pneumoperitoneum. The imaged inferior cardiac chambers appear unremarkable. Coronary arterial calcifications are noted. 8 mm lymph node within the right epicardial distribution as mildly decreased in size. Ill-defined wedge-shaped hypodensity of the posterior right hepatic lobe measuring approximately 5.4 cm is unchanged from comparison. No new hepatic lesions identified. The spleen and adrenal glands are unremarkable. 7 mm hypodense lesion of the pancreatic body on image 129 series 3 is indeterminate and may reflect a sidebranch IPMN, unchanged from comparison. Cholelithiasis without CT evidence of acute cholecystitis. Multiple bilateral renal cysts. 1.3 cm calcification of the inferior pole left kidney. Punctate nonobstructing calculus of the superior pole left kidney. There are several nonobstructing calculi noted about the right kidney measuring up to 4 mm. Heterogeneously decreased enhancement of the right kidney with urothelial thickening of the collecting system and ureter. There is decreased hydroureteronephrosis from comparison study, now appears to be moderate bilaterally. Persistent dilation of the bilateral ureters without obstructing calculi or lesion identified. Circumferential wall thickening of the urinary bladder with partial distention. Absent prostate. Right lower pelvis soft tissue nodule measuring 1.5 cm previously measured approximately 1.3 cm. 1.3 cm periaortic lymph node on image 158 series 3 previously measured 2.2 cm. No new or progressive adenopathy. No aortic aneurysm or IVC is unremarkable. Metallic density focus of the abdominal right lower quadrant redemonstrated. Surgical clips are noted adjacent to the proximal stomach. There is no bowel obstruction. Trace abdominopelvic ascites. Nonspecific mild wall thickening of the distal rectum and anus, possibly posttreatment related. Colonic diverticulosis without acute diverticulitis. Mild fecal retention. Noninflamed appendix. Tiny fat filled periumbilical hernia. Soft tissues are unremarkable. Scattered osseous sclerotic foci redemonstrated suggestive of metastasis. No acute pathologic fracture. IMPRESSION: 1. Persistent bilateral hydroureteronephrosis has moderately improved from 05/30/2019. 2. Heterogeneous enhancement of the right kidney with urothelial thickening is suggestive of polynephritis with pyelitis. Correlate clinically. 3. Nonobstructing bilateral nephrolithiasis. 4. Colonic diverticulosis without acute diverticulitis. 5. Cholelithiasis. 6. Decreased size of the abdominal adenopathy. 7. Small volume of pelvic ascites. 8. Additional findings as above. Electronically signed by: Aston Delgdao M.D. 07/13/2019 6:30 PM ECG Data Attestation: I personally reviewed and interpreted this ECG as follows: Indication: + SOB/dyspnea Rate (beats per minute): 60 Rhythm: + normal sinus ECG Findings: + PACs (no), + PVCs (no) and + Other (LVH with repolarization abnormality, QRS 92, QTC 410) Blood Pressure Blood Pressure Findings: Elevated blood pressure Blood Pressure Disposition: further management by hospitalist EDITH Narrative The patient is a pleasant 69-year-old gentleman with a past medical history of prostate cancer with report of, by the patient, of liver metastases, managed at [facility], afib s/p Watchman, HTN, HLD who presents emergency department with dyspnea on exertion, generalized weakness in the setting of developing hematuria per hpi. On arrival the patient is fatigued appearing but no acute distress, afebrile stable vital signs. The patient appears clinically dry. He is neurologically intact. Abdomen is benign. EKG demonstrates LVH with repolarization abnormality. Chest x-ray without acute process. WBC and platelets within normal limits. H/H 13.4/37.3 improved from prior values. Potassium 2.8 and phosphorus 2.2 with repletion provided. Chemistry without acidosis. Troponin 0.06 without prior elevations. Given the patient does not have any chest pain ACS is not not likely however we will continue to trend. UA demonstrates WBCs although with epithelial cells as well. CT the abdomen pelvis demonstrates stable hydronephrosis however with possible evidence of pyelitis/pyelonephritis. Thus, given UA will treat with IV Cipro for now. Given the patient's findings reasonable to admit the patient for further management. Patient is agreeable. Case was discussed with Dr. Renae, [facility] [place], who will evaluate the patient for admission. Impression & Plan Elevated troponin, History of prostate cancer, Dyspnea on exertion, Pyelonephritis, Hypokalemia, Hypophosphatemia Discharge Plan Visit Data *Final* Discharge Date/Time: 07/13/19 21:12 Chief Complaint: Hematuria Stated Complaint: BLOOD IN URINE, LETHARGIC, CAN'T THINK CLEARLY ED Provider: Nicolás Smith Discharge Problem: Elevated troponin, History of prostate cancer, Dyspnea on exertion, Pyelonephritis, Hypokalemia, Hypophosphatemia Patient Disposition: Admitted As Inpatient Discharge Instructions Interventions: ED Discharge Assessment Last Done: 07/13/19 21:12 The scribe's documentation has been prepared under my direction and personally reviewed by me in its entirety. I confirm that the note above accurately ref lects all work, treatment, procedures, and medical decision making performed by me.
--- NOTE | 2019-07-13 20:15 | History & Physical Report ---
Date of Service July 13, 2019 Assessment & Plan (1) Elevated troponin: Mr. Suresh is a very pleasant 69 year old male with a past medical history significant for metastatic prostate cancer, atrial flutter with RVR, diverticulosis, hypertension, hyperlipidemia, GERD, MARTHA, anxiety, prior GI bleed, and osteoarthritis who presented to the emergency department due to a 4- day history of hematuria. ED course: 1 g IV acetaminophen, 1 L normal saline bolus, 400 mg IV ciprofloxacin, 10 mEq of KCl, Phospha 250 x 2 tabs, 40 mEq potassium chloride p.o. -admit to telemetry -Troponin elevated to 0.06 - unlikely to be ACS, given no ischemic changes on EKG, no concerning chest pain, and normal nuclear stress test 2 years ago -We will trend troponin every 6 hours -EKG as needed for chest pain Pyelonephritis -CT abdomen and pelvis shows urothelial thickening in the right kidney, suggestive of pyelonephritis with pyelitis -UA positive for blood, leukocyte esterase, white cells, but also positive for epithelial cells -Afebrile, no elevation in white cell counts -Treated with 1 dose of IV ciprofloxacin in the ED, will continue to treat with 400 mg IV ciprofloxacin twice daily -Blood and urine cultures ordered and pending -Hemoglobin stable at 13.4, will repeat CBC tomorrow morning -Urology consulted given recent stent removal, and history of sepsis after removal of stents in the past- patient follows with Dr. Schmitt Electrolyte abnormalitieshypokalemia, hypophosphatemia -Potassium 2.8 on admission, and phosphorus 2.2 -Repleted in the ER, will recheck levels in a.m. Atrial flutter s/p watchman procedure -Continue home digoxin and metoprolol -Hold home Plavix given hematuria Osteoporosis -Continue home vitamin D3 Dyslipidemia -Continue daily ezetimibe GERD -home omeprazole nonformulary, switch to pantoprazole MARTHA -Continue nightly CPAP Mood disorder -Continue home venlafaxine CODE STATUS: Full DVT prophylaxis: SCDs, chemical prophylaxis contraindicated in the setting of hematuria Disposition: Admit to telemetry (2) History of prostate cancer: (3) Pyelonephritis: (4) Hypokalemia: (5) Hypophosphatemia: (6) Hydronephrosis: (7) Dyslipidemia: (8) GERD (gastroesophageal reflux disease): (9) Osteoarthritis: (10) History of GI bleed: (11) Atrial flutter: History of Present Illness Chief Complaint: Hematuria Primary Care Provider: Bruce Ness MD Mr. Suresh is a very pleasant 69 year old male with a past medical history significant for metastatic prostate cancer, atrial flutter with RVR, diverticulosis, hypertension, hyperlipidemia, GERD, MARTHA, anxiety, prior GI bleed, and osteoarthritis who presented to the emergency department due to a 4- day history of hematuria. He states that he noticed his blood was dark red 4 days ago, however denies the presence of clots. He states that it normalized yesterday, however today he noticed his urine was pink in color. He denies dysuria, urgency, or worsening frequency. He denies fever, or chills, however states that he has been very fatigued today, sleeping more than usual and has found himself breaking out into sweats. He also endorses lightheadedness, and poor appetite. He states that he follows with urology for his history of hydronephrosis, secondary to stricturing from radiation. He recently had a stent placed in either ureter, which were both successfully removed last month. He reports 2 short episodes [facility] He states that the first episode was on his left side, and second episode was on his right side. He states that the episodes lasted 15 to 20 seconds, and resolved without intervention. He states the pain was not too severe, and more of a discomfort. He reports that he has had elevated troponin in the past, 2 years ago, which was felt to be secondary to supply/demand mismatch in the setting of rapid atrial flutter. He states that he underwent a nuclear stress test at that time which was normal. He denies ever having a cardiac catheterization. With his history of atrial flutter, he had a watchman procedure done in December 2018. He used to be on Coumadin for a small clot on his device, however his repeat CARMEN showed that the clot had resolved, and he is now only maintained on Plavix. Regarding his metastatic prostate cancer, he had a radical prostatectomy, and follows with oncology at [facility]. He used to be on rucaparib as part of a clinical trial, however he developed dizziness and anorexia, resulting in a 35 pound weight loss while on this medication. It was since discontinued. He has a follow-up appointment with his oncologist in the next month to discuss whether he wants to try hormone therapy versus chemotherapy. He and his state that he is leaning towards chemotherapy. PMHx: Metastatic prostate cancer, atrial flutter, hypertension, hyperlipidemia, GERD, MARTHA, anxiety, prior GI bleed (2012), osteoarthritis PSHx: Radical prostatectomy, implantation of artificial urinary sphincter, cataract surgery Medications: Centrum Silver, vitamin D3, Plavix, digoxin, ezetimibe, loratadine, melatonin, metoprolol tartrate, omeprazole, potassium chloride, terazosin, venlafaxine Allergies: Atorvastatin, lisinopril SHx: Lives at home with his . In the process of moving to [place]. Recently retired. Has never smoked. Rare alcohol use. No history of recreational drug abuse. Allergies Allergy/AdvReac Type Severity Reaction Status Date / Time hazelnut Allergy Severe Swelling Verified 07/13/19 18:07 of Lip/Tongue/Throat atorvastatin Allergy Intermediate "FUZZY Verified 07/13/19 18:07 THOUGHT PROCESS AND DEPRESSION LIKE SYMPTOMS" lisinopril Allergy Intermediate SWELLING Verified 07/13/19 18:07 IN ANKLES Mcldzbn-Yut-Ial Reductase Allergy Unknown Unknown Verified 07/13/19 18:07 Inhibitor Home Medications Home Medications Medication Instructions Recorded Confirmed Type Centrum Silver 1 tab PO QAM 07/04/18 07/13/19 History metoprolol tartrate 50 mg PO AMPM 07/04/18 07/13/19 History cholecalciferol (vitamin D3) 400 unit PO QAM 01/09/19 07/13/19 History [Vitamin D3] loratadine 10 mg PO DAILY PRN 01/09/19 07/13/19 History melatonin 2.5 mg PO HS 01/09/19 07/13/19 History ezetimibe 10 mg PO QPM 03/11/19 07/13/19 History metoprolol tartrate 50 mg tablet 25 mg PO QDL tab 04/19/19 07/13/19 History digoxin 125 mcg PO Q OTHER DAY 04/30/19 07/13/19 History terazosin 0 mg PO HS 05/16/19 07/13/19 History potassium chloride ER 10 mEq 10 meq PO QAM cap 05/30/19 07/13/19 History capsule,extended release clopidogrel 75 mg tablet 75 mg PO DAILY #90 tab 06/18/19 07/13/19 Rx omeprazole 40 mg capsule,delayed 40 mg PO DAILY #30 cap 06/18/19 07/13/19 Rx release venlafaxine ER 37.5 mg 37.5 mg PO DAILY #30 cap 06/18/19 07/13/19 Rx capsule,extended release 24 hr Past Med/Surg History Medical History Adjustment disorder (Acute) Arthritis (Acute) HTN (hypertension) (Chronic) History of prostate cancer (Chronic) s/p surgery, radiation Anemia Anxiety Atrial fibrillation and flutter dx years ago - follows w/ Dr. Martinez - on warfarin CKD (chronic kidney disease) Last creatinine from 05/05/19 was 1.5 Diverticulosis GERD (gastroesophageal reflux disease) Hyperlipidemia Hypertension Intracardiac thrombus Patient on coumadin Kidney stones Osteoarthritis Pneumonia 03/11/19 admitted for pneumonia, resolved per patient. 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 Sleep apnea CPAP Sleep apnea uses CPAP Surgical History Status post implantation of artificial urinary sphincter (Chronic) Colon polyp REMOVED (BENIGN) VIA EGD H/O eye surgery RT EYE-LASER PROCEDURE History of colonoscopy History of esophagogastroduodenoscopy (EGD) History of lithotripsy History of prostatectomy History of tonsillectomy History of tooth extraction History of transesophageal echocardiography (CARMEN) Presence of Watchman left atrial appendage closure device 12/2018 - [place] Family History Brother Family history of diabetes mellitus Family hx of colon cancer Alcohol abuse Cancer Hypertension Lung disease Cardiac disorder Father Alcohol abuse Hypertension Cardiac disorder Cancer Unknown Myocardial infarction Prostate cancer Colorectal cancer Social History Preferred Language: Austrian Communication Ability: Effective Energy Management Specialist Required: No Beliefs That Will Affect Care: None marital status: Current Living Situation: Spouse Other Information That Helps Us Care for You: No Feels Safe at Home: Yes Safety Concerns: Feels Safe At This Time Smoking Status: Never smoker Second Hand Exposure: No ; Hx Alcohol Use: No Hx Substance Use: No Review of Systems Constitutional: + sweats, + fatigue, + weakness and + anorexia; no fever and no chills Respiratory: + cough; no dyspnea, no sputum production and no wheezing Cardiovascular: + chest pain; no syncope, no edema and no calf pain Gastrointestinal: + constipation; no abdominal pain, no nausea and no vomiting Genitourinary: + hematuria; no dysuria and no difficulty urinating Integumentary: no rash and no lesions Physical Exam Constitutional: WD/WN, vitals as above cooperative and comfortable Eyes: PERRL, conjunctivae normal, anicteric sclerae ENMT: external ear and nose normal, oropharynx normal Respiratory: normal respiratory effort, lungs clear to auscultation Cardiovascular: RRR, no murmur, no edema Gastrointestinal (Abdomen): Percussion/Palpation: + abdomen tender (discomfort noted in LLQ) and abdomen soft; no guarding and abdomen not rigid Skin: no rashes, warm and dry Neurologic: PERRL, EOMI, accommodation nl, no face palsy, no dysarthria Results & Data Vital Signs (Past 12 Hours) Vital Signs Temp Pulse Pulse Resp BP BP Pulse Ox 07/13/19 19:35 56 L 18 164/80 H 98 07/13/19 18:37 57 L 18 176/84 H 97 07/13/19 16:14 37.2 C 63 20 161/87 H 98 Code Status & VTE Plan VTE Prophylaxis Plan VTE Prophylaxis will be ordered: Yes Supervising Physician Co-Signing Physician Notes Attending addendum: I have physically seen this patient, have supervised the medical residents activities, and agree with the H&P unless as otherwise noted. Assessment and Plan: Elevated troponin- The patient will be admitted to telemetry for serial cardiac enzymes, serial EKG's, cardiac rhythm monitoring and a 2-D echocardiogram with Dopplers. Likely type II MS, supply demand mismatch. Bilateral hydronephrosis/pyelonephritis- Cipro 40 mg IV every 12 hours. Follow urine culture and sensitivity. Status post recent stent removal. Consult with Dr. Schmitt, his urologist. Remainder of orders and notations as noted. PG Care Time/CCT Total # of Minutes Spent Total Time Spent with Patient: Total time spent is greater than 50% in coordination of care (as documented) at patient's floor/unit and/or counseling patient: Resident Activity Tracking Resident Involvement: Resident Care Provided Care Provided: Adult [facility] Medicine (1) Hydronephrosis Hydronephrosis type: unspecified Qualified Code(s): N13.30 - Unspecified hydronephrosis
[2019-07-13] MEDS ORDERED: LORATADINE 10 MG TAB PO PRN (21:52)
[2019-07-13] MEDS ORDERED: ACETAMINOPHEN 325 MG TAB PO PRN (21:52)
[2019-07-13] MEDS ORDERED: POLYETHYLENE (MIRALAX) 17 GM PACK PO PRN (21:52)
[2019-07-13] MEDS: TERAZOSIN HCL 1 MG CAP PO SCH (22:39)
[2019-07-13] MEDS: METOPROLOL TARTRATE 50 MG TAB PO SCH (22:40)
[2019-07-13] MEDS: DIGOXIN 0.125 MG TAB PO SCH (22:40)
[2019-07-13] MEDS: EZETIMIBE 10 MG TABLET PO SCH (22:41)
[2019-07-14 04:36] LABS: Basophils # (auto) 0.02 K/uL (0-0.2); Basophils % (auto) 0.3 %; Eosinophils # (auto) 0.28 K/uL (0-0.5); Eosinophils % (auto) 4.4 %; Immature Granulocytes # (auto) 0.01 K/uL (0.00-0.02); Immature Granulocytes % (auto) 0.2 %; Lymphocytes # (auto) 1.29 K/uL (1.2-3.4); Lymphocytes % (auto) 20.2 %; Mean Corpuscular Hemoglobin 33.1 pg (25-34); Mean Corpuscular Hgb Conc 35.3 g/dL (32-36); Mean Corpuscular Volume 93.9 fL (80-100); Mean Platelet Volume 11.1 fL (7.4-10.4); Monocytes # (auto) 0.78 K/uL (0.11-0.59); Monocytes % (auto) 12.2 %; Neutrophils # (auto) 4.01 K/uL (1.4-6.5); Neutrophils % (auto) 62.7 %; Platelet Count 157 K/uL (130-400); RDW Coefficient of Variation 13.4 % (11.5-14.5); RDW Standard Deviation 46.1 fL (36.4-46.3); Red Blood Count 3.62 M/uL (4.7-6.1); White Blood Count 6.39 K/uL (4.8-10.8)
[2019-07-14 04:55] LABS: BUN Creatinine Ratio 13.8 (10-20); Creatinine Clr Calc Pharmacy 70.2 ml/min; Est GFR (African American) 76.7; Est GFR (Non-African American) 66.2; Potassium 2.9 mmol/L (3.5-5.1)
[2019-07-14 04:57] LABS: Phosphorus 3.6 mg/dl (2.5-4.9)
[2019-07-14] MEDS ORDERED: POTASSIUM CHLORIDE 20 MEQ TABCR PO STA ×2 (05:03→16:53)
[2019-07-14] MEDS: CIPROFLOXACIN 400 MG/200 ML BAG IV SCH ×2 (07:52→21:22)
[2019-07-14] MEDS: POTASSIUM CHLORIDE 10 MEQ TABCR PO SCH (08:43)
[2019-07-14] MEDS: CHOLECALCIFEROL (VITAMIN D) 400 UNITS TABLET PO SCH (08:43)
[2019-07-14] MEDS: PANTOprazole 40 MG TAB PO SCH (08:43)
[2019-07-14] MEDS: VENLAFAXINE HCL XR 37.5 MG CAPXR PO SCH (08:43)
[2019-07-14] MEDS ORDERED: HydrALAZINE HCL 20 MG/ML VIAL ONE (09:03)
[2019-07-14] MEDS: HydrALAZINE HCL 20 MG/ML VIAL IV PRN (09:06)
[2019-07-14] MEDS ORDERED: AMLODIPINE BESYLATE 5 MG TAB PO ONE (09:10)
[2019-07-14] MEDS: METOPROLOL TARTRATE 50 MG TAB PO SCH ×2 (09:12→21:26)
--- NOTE | 2019-07-14 10:42 | Urology Consultation ---
Date of Consultation July 14, 2019 Assessment & Plan (1) Hydronephrosis: (2) Hematuria, gross: Patient doing well. Has cleared this morning. No clots or major discomfort. Has been an ongoing intermittent issue. Patient appears stable from urologic issues. Is being worked up for heart related issues. No other major changes. Discussed long-term follow-up. Patient is set to change service to [place] where he is now living. Otherwise will be available for any issues while in [place]. We will continue to follow. Reviewed imaging at length with patient discussed previous history. Discussed complicated urologic history and surgical history. (3) History of prostate cancer: History of Present Illness Attending Physician: Clark Gotti, History of Present Illness Patient with hematuria. Patient admitted for chest pain and heart related issues. Has a very complicated long urologic history with history of AUS, prostate cancer, pelvic radiation, and history of previous hematuria. Patient has been peeing some small clots. No major obstructions. No severe discomfort or burning or irritation. Patient states this is been going on and off for the last week or 2. Has coming on in the past. No fevers or chills. No other major changes. Is on Plavix. Patient has hydronephrosis on imaging. This has been chronic. No other major changes. Overall has improved over the last few hours. Patient has moved to [place]. He is only up here to sell his house. Has plans to transfer service to someone at [facility]. Allergies Allergy/AdvReac Type Severity Reaction Status Date / Time hazelnut Allergy Severe Swelling Verified 07/13/19 18:07 of Lip/Tongue/Throat atorvastatin Allergy Intermediate "FUZZY Verified 07/13/19 18:07 THOUGHT PROCESS AND DEPRESSION LIKE SYMPTOMS" lisinopril Allergy Intermediate SWELLING Verified 07/13/19 18:07 IN ANKLES Iczbqvi-Pss-Jlm Reductase Allergy Unknown Unknown Verified 07/13/19 18:07 Inhibitor Home Medications Home Medications Medication Instructions Recorded Confirmed Type Centrum Silver 1 tab PO QAM 07/04/18 07/13/19 History metoprolol tartrate 50 mg PO AMPM 07/04/18 07/13/19 History cholecalciferol (vitamin D3) 400 unit PO QAM 01/09/19 07/13/19 History [Vitamin D3] loratadine 10 mg PO DAILY PRN 01/09/19 07/13/19 History melatonin 2.5 mg PO HS 01/09/19 07/13/19 History ezetimibe 10 mg PO QPM 03/11/19 07/13/19 History metoprolol tartrate 50 mg tablet 25 mg PO QDL tab 04/19/19 07/13/19 History digoxin 125 mcg PO Q OTHER DAY 04/30/19 07/13/19 History terazosin 0 mg PO HS 05/16/19 07/13/19 History potassium chloride ER 10 mEq 10 meq PO QAM cap 05/30/19 07/13/19 History capsule,extended release clopidogrel 75 mg tablet 75 mg PO DAILY #90 tab 06/18/19 07/13/19 Rx omeprazole 40 mg capsule,delayed 40 mg PO DAILY #30 cap 06/18/19 07/13/19 Rx release venlafaxine ER 37.5 mg 37.5 mg PO DAILY #30 cap 06/18/19 07/13/19 Rx capsule,extended release 24 hr Patient History Medical History Adjustment disorder (Acute) Arthritis (Acute) HTN (hypertension) (Chronic) History of prostate cancer (Chronic) s/p surgery, radiation Anemia Anxiety Atrial fibrillation and flutter dx years ago - follows w/ Dr. Martinez - on warfarin CKD (chronic kidney disease) Last creatinine from 05/05/19 was 1.5 Diverticulosis GERD (gastroesophageal reflux disease) Hyperlipidemia Hypertension Intracardiac thrombus Patient on coumadin Kidney stones Osteoarthritis Pneumonia 03/11/19 admitted for pneumonia, resolved per patient. 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 Sleep apnea CPAP Sleep apnea uses CPAP Surgical History Status post implantation of artificial urinary sphincter (Chronic) Colon polyp REMOVED (BENIGN) VIA EGD H/O eye surgery RT EYE-LASER PROCEDURE History of colonoscopy History of esophagogastroduodenoscopy (EGD) History of lithotripsy History of prostatectomy History of tonsillectomy History of tooth extraction History of transesophageal echocardiography (CARMEN) Presence of Watchman left atrial appendage closure device 12/2018 - [place] Family History Brother Family history of diabetes mellitus Family hx of colon cancer Alcohol abuse Cancer Hypertension Lung disease Cardiac disorder Father Alcohol abuse Hypertension Cardiac disorder Cancer Unknown Myocardial infarction Prostate cancer Colorectal cancer Social History Preferred Language: Turkmen Communication Ability: Effective Mri Tech Required: No Beliefs That Will Affect Care: None marital status: Current Living Situation: Spouse Other Information That Helps Us Care for You: No Feels Safe at Home: Yes Safety Concerns: Feels Safe At This Time Smoking Status: Never smoker Second Hand Exposure: No ; Hx Alcohol Use: No Hx Substance Use: No Physical Exam Physical Exam: General: Alert in no acute distress. HEENT: Normocephalic Atraumatic. Inspection normal. Cranial Nerves 2-12 Grossly intact. Normal inspection of face. Normal inspection of neck. Psychologic: Normal affect. Respiratory: Nonlabored. No use of accessory muscles. No tachypnea or dyspnea. Cardiovascular: No tachycardia Skin: [place] and Dry. No rashes or visible lesions. Extremities/Lymphatics: No edema Abdomen: Soft Non-distended. No rebound or guarding. Results & Data Vital Signs (Past 12 Hours) Vital Signs Temp Pulse Pulse Resp BP BP Pulse Ox 07/14/19 07:15 52 L 07/14/19 07:01 36.7 C 54 L 20 184/88 H 97 07/14/19 03:23 36.8 C 56 L 18 178/84 H 97 07/14/19 00:07 57 L PG Care Time/CCT Total # of Minutes Spent Total Time Spent with Patient: Total time spent is greater than 50% in coordination of care (as documented) at patient's floor/unit and/or counseling patient: (1) Hydronephrosis Hydronephrosis type: unspecified Qualified Code(s): N13.30 - Unspecified hydronephrosis
[2019-07-14] MEDS: METOPROLOL TARTRATE 25 MG TAB PO SCH (11:37)
--- NOTE | 2019-07-14 13:35 | Hospitalist Progress Note ---
Date of Service July 14, 2019 Assessment & Plan (1) Pyelonephritis: CT scan suggested Pyelitis/pyelonephritis on the right side due to heterogenous enhancement certainly an infection is possible had lethargy, malaise, poor appetite for several days prior to admission was weak and could not stand up however, no true fever or chills, no flank pain had some hematuria but had recent ureteral stent removal WBC has been normal x 2 checks, normal vitals here, no growth on urine culture he feels a lot better after some fluids and Cipro over night continue on Cipro for time being, unsure if he warrants treatment on discharge would lean towards treating since he feels so much better, no other explanation (2) Acute UTI: as above 10-30 WBC in urine urine culture with no growth however continue Cipro (3) Atrial fibrillation: h/o such with Watchman procedure so no anticoagulation rates controlled on Digoxin, metoprolol (4) Hypertension: markedly elevated, 180's systolic reviewing prior visits his pressures are always elevated gave a dose of Norvasc today, 5mg, tolerated well and BP coming down could consider continuing Norvasc 5mg daily he is in process of moving to [place], only in [employer] for closing on old home he will need to follow up with a PCP in [place] for further management (5) Hematuria, gross: resolved completely this morning could be related to infection? 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 Plan: check labs in AM, ask PT/OT to see for weakness should be able to go home tomorrow late morning/early afternoon would d/c home on Cipro for 10 day course would give script for Norvasc 5mg daily to continue Subjective patient feeling a lot better this morning after some fluids and Ciprofloxacin his urine is clearing up, no blood or clots seen no growth on urine or blood cultures at this point WBC normal, Hb 12 K was 2.9 this morning, received 90mEq PO total, repeat BMP updated his at the bedside d/w Urology, no significant concerns for them at this time, no plans for interventions will establish care in the [facility] patient overall feels better but not sure he feels up to going home discussed blood pressure, how it is always high he swears it is better in the office gave Norvasc 5mg this morning, will monitor Review of Systems Review of Systems: All systems reviewed & are unremarkable except as noted in HPI & below Constitutional: + fatigue and + weakness; no fever, no chills and no sweats Respiratory: no cough and no dyspnea Cardiovascular: + chest pain (2 episodes in the past few days, lasted seconds each); no palpitations and no edema Gastrointestinal: no abdominal pain, no nausea, no vomiting, no constipation and no diarrhea/loose stools Genitourinary: no dysuria, no hematuria (resolved this morning) and no flank pain Musculoskeletal: + muscle weakness Physical Exam Constitutional: WD/WN, vitals as above Eyes: PERRL, conjunctivae normal, anicteric sclerae ENMT: external ear and nose normal, oropharynx normal Neck: trachea midline, no thyromegaly Respiratory: normal respiratory effort, lungs clear to auscultation Cardiovascular: RRR, no murmur, no edema Gastrointestinal (Abdomen): normal bowel sounds, soft, nontender, no hepatosplenomegaly Musculoskeletal: no cyanosis or clubbing, extremities motor strength 5/5 Skin: no rashes, warm and dry Neurologic: patellar DTR's 2+ bilat, sensation intact and PERRL, EOMI, accommodation nl, no face palsy, no dysarthria Psychiatric: A+Ox3, euthymic affect Lymphatic: no cervical or axillary lymphadenopathy Results & Data Vital Signs (Past 12 Hours) Vital Signs Temp Pulse Pulse Resp BP BP Pulse Ox 07/14/19 11:36 36.8 C 57 L 20 162/79 H 96 07/14/19 07:15 52 L 07/14/19 07:01 36.7 C 54 L 20 184/88 H 97 07/14/19 03:23 36.8 C 56 L 18 178/84 H 97 Laboratory Results Laboratory Results - last 24 hr 07/13/19 07/13/19 07/13/19 16:40 17:12 17:12 WBC 10.16 RBC 3.95 L Hgb 13.4 L Hct 37.3 L MCV 94.4 MCH 33.9 MCHC 35.9 RDW Std Deviation 44.9 RDW Coeff of Lauren 13.0 Plt Count 181 MPV 11.1 H Immature Gran % (Auto) 0.2 Neut % (Auto) 79.5 Lymph % (Auto) 9.6 Williamson % (Auto) 9.4 Eos % (Auto) 1.0 Baso % (Auto) 0.3 Immature Gran # (Auto) 0.02 Neut # (Auto) 8.07 H Lymph # (Auto) 0.98 L Williamson # (Auto) 0.96 H Eos # (Auto) 0.10 Baso # (Auto) 0.03 Sodium 140 Potassium 2.8 L Chloride 102 Carbon Dioxide 30 Anion Gap 8.0 BUN 15 Creatinine 1.19 Est Cr Clr Drug Dosing Not Reportable Est GFR ( Amer) 72.8 Est GFR (Non-Af Amer) 62.8 BUN/Creatinine Ratio 12.5 Glucose 106 H Calcium 9.2 Phosphorus 2.2 L Magnesium 1.8 Total Bilirubin 0.8 AST 22 ALT 26 Alkaline Phosphatase 88 Troponin I 0.060 H* Total Protein 7.6 Albumin 3.8 Globulin 3.8 Albumin/Globulin Ratio 1.0 Lipase 136 Urine Color Yellow Urine Appearance Clear Urine pH 7.0 Ur Specific [place] 1.015 Urine Protein 2+ H Urine Glucose (UA) Negative Urine Ketones Negative Urine Blood 3+ H Urine Nitrite Negative Urine Bilirubin Negative Urine Urobilinogen Negative Ur Leukocyte Esterase Trace H Urine WBC (Auto) 10-30 H Urine RBC (Auto) >30 H U Hyaline Cast (Auto) 1-5 U Epithel Cells (Auto) 20-30 H Urine Bacteria (Auto) Negative 07/13/19 07/14/19 07/14/19 22:54 04:12 04:12 WBC 6.39 RBC 3.62 L Hgb 12.0 L Hct 34.0 L MCV 93.9 MCH 33.1 MCHC 35.3 RDW Std Deviation 46.1 RDW Coeff of Lauren 13.4 Plt Count 157 MPV 11.1 H Immature Gran % (Auto) 0.2 Neut % (Auto) 62.7 Lymph % (Auto) 20.2 Williamson % (Auto) 12.2 Eos % (Auto) 4.4 Baso % (Auto) 0.3 Immature Gran # (Auto) 0.01 Neut # (Auto) 4.01 Lymph # (Auto) 1.29 Williamson # (Auto) 0.78 H Eos # (Auto) 0.28 Baso # (Auto) 0.02 Sodium 142 Potassium 2.9 L Chloride 106 Carbon Dioxide 30 Anion Gap 6.0 BUN 16 Creatinine 1.14 Est Cr Clr Drug Dosing 70.2 Est GFR ( Amer) 76.7 Est GFR (Non-Af Amer) 66.2 BUN/Creatinine Ratio 13.8 Glucose 110 H Calcium 9.0 Phosphorus 3.6 D Magnesium Total Bilirubin AST ALT Alkaline Phosphatase Troponin I 0.058 H* Total Protein Albumin Globulin Albumin/Globulin Ratio Lipase Urine Color Urine Appearance Urine pH Ur Specific [place] Urine Protein Urine Glucose (UA) Urine Ketones Urine Blood Urine Nitrite Urine Bilirubin Urine Urobilinogen Ur Leukocyte Esterase Urine WBC (Auto) Urine RBC (Auto) U Hyaline Cast (Auto) U Epithel Cells (Auto) Urine Bacteria (Auto) Microbiology 07/13/19 16:40 Urine,Clean Catch Urine Culture - Preliminary No growth - Less than 1,000 colonies/mL, Final report to follow. Medications Administered Current Inpatient Medications Acetaminophen (Tylenol) 650 mg PO Q4H PRN PRN Reason: Pain or Fever Stop: 08/12/19 21:51 Digoxin (Lanoxin) 0.125 mg PO Q2D@1600 HIMA Stop: 08/12/19 21:51 Last Admin: 07/13/19 22:40 Dose: Not Given Documented by: Ezetimibe (Zetia) 10 mg PO QPM [facility] Stop: 08/12/19 21:51 Last Admin: 07/13/19 22:41 Dose: 10 mg Documented by: Hydralazine HCl (Hydralazine Hcl) 10 mg IV Q6 PRN PRN Reason: Blood Pressure - High Stop: 08/13/19 08:55 Last Admin: 07/14/19 09:06 Dose: 10 mg Documented by: Ciprofloxacin (Cipro) 400 mg in 200 mls @ 100 mls/hr IV Q12H HIMA; Protocol Stop: 07/24/19 07:59 Last Infusion: 07/14/19 10:15 Dose: Infused Documented by: Ioversol (Optiray 320 100ml) 94 ml IV ONCE PRN PRN Reason: Interaction Checking Stop: 07/17/19 18:05 Last Admin: 07/13/19 18:06 Dose: 94 ml Documented by: Loratadine (Claritin) 10 mg PO DAILY PRN PRN Reason: allergies Stop: 08/12/19 21:51 Metoprolol Tartrate (Lopressor) 25 mg PO QDL [facility] Stop: 08/13/19 11:29 Last Admin: 07/14/19 11:37 Dose: Not Given Documented by: Metoprolol Tartrate (Lopressor) 50 mg PO BID [facility] Stop: 08/12/19 21:51 Last Admin: 07/14/19 09:12 Dose: Not Given Documented by: Pantoprazole Sodium (Protonix) 40 mg PO QAM [facility] Stop: 08/13/19 08:59 Last Admin: 07/14/19 08:43 Dose: 40 mg Documented by: Polyethylene Glycol (Miralax Powder Packet) 17 gm PO DAILY PRN PRN Reason: Constipation Stop: 08/12/19 21:51 Potassium Chloride (Klor-Con M10) 10 meq PO QAM [facility] Stop: 08/13/19 08:59 Last Admin: 07/14/19 08:43 Dose: 10 meq Documented by: Terazosin HCl (Hytrin) 2 mg PO HS [facility] Stop: 08/12/19 21:51 Last Admin: 07/13/19 22:39 Dose: 2 mg Documented by: Venlafaxine HCl (Effexor Extended Release) 37.5 mg PO DAILY [facility] Stop: 08/13/19 08:59 Last Admin: 07/14/19 08:43 Dose: 37.5 mg Documented by: Vitamin D (Vitamin D3) 400 units PO QAM [facility] Stop: 08/13/19 08:59 Last Admin: 07/14/19 08:43 Dose: 400 units Documented by: PG Care Time/CCT Total # of Minutes Spent Total Time Spent with Patient: Total time spent is greater than 50% in coordination of care (as documented) at patient's floor/unit and/or counseling patient: (1) Atrial fibrillation Atrial fibrillation type: persistent Qualified Code(s): I48.1 - Persistent atrial fibrillation
[2019-07-14 14:44] LABS: BUN Creatinine Ratio 11.7 (10-20); Calcium 9.2 mg/dl (8.5-10.1); Creatinine Clr Calc Pharmacy 66.5 ml/min; Est GFR (African American) 71.4; Est GFR (Non-African American) 61.6
[2019-07-14] MEDS ORDERED: SODIUM CHLORIDE 0.65% NA SOLN 45 ML (OCEAN) ONE (15:24)
[2019-07-14] MEDS ORDERED: METOPROLOL TARTRATE 1 MG/ML VIAL IV ONE (15:43)
[2019-07-14] MEDS ORDERED: METOPROLOL TARTRATE 1 MG/ML VIAL IV STA (15:45)
[2019-07-14] MEDS ORDERED: NITROGLYCERIN SL 0.4 MG/TAB TAB SL STA (15:47)
[2019-07-14] MEDS ORDERED: CLOPIDOGREL BISULFATE 75 MG TAB PO ONE (15:48)
[2019-07-14] MEDS ORDERED: METOPROLOL TARTRATE 50 MG TAB PO ONE (16:00)
[2019-07-14] MEDS ORDERED: INFLUENZA VACCINE HIGH DOSE 65+ 0.5 ML SYR IM ONE (18:30)
[2019-07-14] MEDS ORDERED: INFLUENZA ADMINISTRATION CHARGE ONE (18:30)
[2019-07-14] MEDS: TERAZOSIN HCL 1 MG CAP PO SCH (21:25)
[2019-07-14] MEDS: EZETIMIBE 10 MG TABLET PO SCH (21:27)
[2019-07-15] MEDS: HydrALAZINE HCL 20 MG/ML VIAL IV PRN (00:18)
[2019-07-15 07:11] LABS: Basophils # (auto) 0.04 K/uL (0-0.2); Basophils % (auto) 0.7 %; Eosinophils # (auto) 0.46 K/uL (0-0.5); Eosinophils % (auto) 7.5 %; Hematocrit (blood only) 35.3 % (42-52); Hemoglobin 12.4 g/dL (14.0-18.0); Immature Granulocytes # (auto) 0.02 K/uL (0.00-0.02); Immature Granulocytes % (auto) 0.3 %; Lymphocytes # (auto) 1.09 K/uL (1.2-3.4); Lymphocytes % (auto) 17.8 %; Mean Corpuscular Hemoglobin 33.4 pg (25-34); Mean Corpuscular Volume 95.1 fL (80-100); Mean Platelet Volume 10.8 fL (7.4-10.4); Monocytes # (auto) 0.95 K/uL (0.11-0.59); Monocytes % (auto) 15.5 %; Neutrophils # (auto) 3.56 K/uL (1.4-6.5); Neutrophils % (auto) 58.2 %; Platelet Count 163 K/uL (130-400); RDW Coefficient of Variation 13.3 % (11.5-14.5); RDW Standard Deviation 46.5 fL (36.4-46.3); Red Blood Count 3.71 M/uL (4.7-6.1); White Blood Count 6.12 K/uL (4.8-10.8)
[2019-07-15 07:17] LABS: Mean Corpuscular Hgb Conc 35.1 g/dL (32-36)
[2019-07-15 07:26] LABS: BUN Creatinine Ratio 12.9 (10-20); Calcium 9.5 mg/dl (8.5-10.1); Creatinine Clr Calc Pharmacy 63.8 ml/min; Est GFR (African American) 75.1; Est GFR (Non-African American) 64.8; Potassium 3.1 mmol/L (3.5-5.1)
[2019-07-15] MEDS: CHOLECALCIFEROL (VITAMIN D) 400 UNITS TABLET PO SCH (08:10)
[2019-07-15] MEDS: POTASSIUM CHLORIDE 10 MEQ TABCR PO SCH (08:10)
[2019-07-15] MEDS: PANTOprazole 40 MG TAB PO SCH (08:10)
[2019-07-15] MEDS: METOPROLOL TARTRATE 50 MG TAB PO SCH ×2 (08:11→20:23)
[2019-07-15] MEDS: VENLAFAXINE HCL XR 37.5 MG CAPXR PO SCH (08:11)
[2019-07-15] MEDS: CIPROFLOXACIN 400 MG/200 ML BAG IV SCH (09:59)
--- NOTE | 2019-07-15 10:32 | Cardiology Consultation ---
Date of Consultation July 15, 2019 Assessment & Plan (1) Paroxysmal atrial flutter: Symptomatic in association with acute presenting issues. In part likely aggravated by hypokalemia possible beta-faith withdrawal. Discussed with patient we will plan on supplementing potassium to above 4 add low-dose spironolactone 12.5 mg p.o. daily Continue antihypertensive regimen including beta-faith His acute plans to move to [place] in the next days and will establish with [facility] cardiology/EP for ongoing management, discussion of antiarrhythmic therapy/A. fib flutter ablation (2) Hypokalemia: Patient since admission is received 120 medical events p.o. potassium with potassium 3.1 this morning We will give an additional 40 mg of p.o. potassium now as well as spironolactone 12.5 mg p.o. Daily potassium should be increased to 20 meq/day (3) Pyelonephritis: (4) Hypertension: History of Present Illness Reason for Consultation: Paroxysmal atrial flutter with chest discomfort Requesting Physician: Dr. Villa Ordaz Attending Physician: Villa Ordaz History of Present Illness Patient is a very complex 69-year-old male with underlying issues 1. Longstanding labileand difficult to controlhypertension 2. Hypertensive heart disease 3. Chronic obstructive sleep apnea with CPAP therapy 4. Paroxysmal atrial flutter 5. Dyslipidemia 6. Family history of ischemic heart disease 7. Metastaticprostate cancer status post proctectomy with reoccurrence status post chemo and radiation therapy now on Lupron therapy, care coordinated at [facility] currently off research trial based therapy 8. BPH 9. GERD 10. History of GI bleeding with hospitalization in November 2009 secondary to lower GI bleeding without source identified via EGD or colonoscopyat that time status post repeat endoscopy and colonoscopy February 25, 2019 with polypectomy 11. Paroxysmal atrial fibrillation with amaurosis fugax /stroke September 2018 chads vas 2 score greater than 5 12. Status post Watchman device insertion January 03, 2019 with device thrombus on followup CARMEN February 19, 2019 resolving on follow-up CARMEN May 2019 now on antiplatelet therapy with clopidogrel Patient presents and is referred now for evaluation having developed symptoms of hematuria last week an episode of acute lightheadedness on standing day of admission. Evaluation is demonstrated evidence of pyelonephritis. During hospital stay demonstrated episodes of paroxysmal atrial flutter with elevated ventricular response rate with associated transient chest pressure/pain symptoms. Patient this morning is comfortable. Notes no current fevers chills. Hematuria is resolved. Notes no melena hematochezia dysuria hematuria. Appetite's been fair. He notes increased stress in the course of closing his home and transitioning to living in [place]. Patient anticipates to establishing all care including cardiology through [facility] Lab work on admission has been notable for significant hypokalemia, potassium 2.8. Lab work has demonstrated difficulties with refractory hypokalemia recently and in the past. Allergies Allergy/AdvReac Type Severity Reaction Status Date / Time hazelnut Allergy Severe Swelling Verified 07/13/19 18:07 of Lip/Tongue/Throat atorvastatin Allergy Intermediate "FUZZY Verified 07/13/19 18:07 THOUGHT PROCESS AND DEPRESSION LIKE SYMPTOMS" lisinopril Allergy Intermediate SWELLING Verified 07/13/19 18:07 IN ANKLES [id number]-Ici-Dnx Reductase Allergy Unknown Unknown Verified 07/13/19 18:07 Inhibitor Home Medications Home Medications Medication Instructions Recorded Confirmed Type Centrum Silver 1 tab PO QAM 07/04/18 07/13/19 History metoprolol tartrate 50 mg PO AMPM 07/04/18 07/13/19 History cholecalciferol (vitamin D3) 400 unit PO QAM 01/09/19 07/13/19 History [Vitamin D3] loratadine 10 mg PO DAILY PRN 01/09/19 07/13/19 History melatonin 2.5 mg PO HS 01/09/19 07/13/19 History ezetimibe 10 mg PO QPM 03/11/19 07/13/19 History metoprolol tartrate 50 mg tablet 25 mg PO QDL tab 04/19/19 07/13/19 History digoxin 125 mcg PO Q OTHER DAY 04/30/19 07/13/19 History terazosin 0 mg PO HS 05/16/19 07/13/19 History potassium chloride ER 10 mEq 10 meq PO QAM cap 05/30/19 07/13/19 History capsule,extended release clopidogrel 75 mg tablet 75 mg PO DAILY #90 tab 06/18/19 07/13/19 Rx omeprazole 40 mg capsule,delayed 40 mg PO DAILY #30 cap 06/18/19 07/13/19 Rx release venlafaxine ER 37.5 mg 37.5 mg PO DAILY #30 cap 06/18/19 07/13/19 Rx capsule,extended release 24 hr Patient History Medical History Adjustment disorder (Acute) Arthritis (Acute) HTN (hypertension) (Chronic) History of prostate cancer (Chronic) s/p surgery, radiation Anemia Anxiety Atrial fibrillation and flutter dx years ago - follows w/ Dr. Martinez - on warfarin CKD (chronic kidney disease) Last creatinine from 05/05/19 was 1.5 Diverticulosis GERD (gastroesophageal reflux disease) Hyperlipidemia Hypertension Intracardiac thrombus Patient on coumadin Kidney stones Osteoarthritis Pneumonia 03/11/19 admitted for pneumonia, resolved per patient. 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 Sleep apnea CPAP Sleep apnea uses CPAP Surgical History Status post implantation of artificial urinary sphincter (Chronic) Colon polyp REMOVED (BENIGN) VIA EGD H/O eye surgery RT EYE-LASER PROCEDURE History of colonoscopy History of esophagogastroduodenoscopy (EGD) History of lithotripsy History of prostatectomy History of tonsillectomy History of tooth extraction History of transesophageal echocardiography (CARMEN) Presence of Watchman left atrial appendage closure device 12/2018 - [facility] Family History Brother Family history of diabetes mellitus Family hx of colon cancer Alcohol abuse Cancer Hypertension Lung disease Cardiac disorder Father Alcohol abuse Hypertension Cardiac disorder Cancer Unknown Myocardial infarction Prostate cancer Colorectal cancer Social History Preferred Language: Tajik Communication Ability: Effective 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 Beliefs That Will Affect Care: None marital status: Current Living Situation: Spouse Other Information That Helps Us Care for You: No Feels Safe at Home: Yes Safety Concerns: Feels Safe At This Time Smoking Status: Never smoker Second Hand Exposure: No ; Hx Alcohol Use: No Hx Substance Use: No Review of Systems Review of Systems: All systems reviewed & are unremarkable except as noted in HPI & below Physical Exam Constitutional: WD/WN, vitals as above Eyes: PERRL, conjunctivae normal, anicteric sclerae ENMT: external ear and nose normal, oropharynx normal Neck: trachea midline, no thyromegaly Respiratory: normal respiratory effort, lungs clear to auscultation Cardiovascular: Rate/Rhythm: regular rate and regular rhythm Heart Sounds: normal S1 and normal S2; no gallop and no murmur Palpation: normal PMI Vessels: normal carotid upstroke and radial pulses present; no JVD and no carotid bruit Extremities: no edema Gastrointestinal (Abdomen): normal bowel sounds, soft, nontender, no hepatosplenomegaly Musculoskeletal: no cyanosis or clubbing, extremities motor strength 5/5 Skin: no rashes, warm and dry Neurologic: PERRL, EOMI, accommodation nl, no face palsy, no dysarthria Psychiatric: A+Ox3, euthymic affect Results & Data Vital Signs (Past 12 Hours) Vital Signs Temp Pulse Pulse Resp BP BP Pulse Ox 07/15/19 09:38 60 07/15/19 07:59 36.7 C 54 L 16 161/84 H 96 07/15/19 03:12 37.0 C 56 L 20 167/80 H 95 07/15/19 00:58 157/79 H 07/15/19 00:00 59 L 07/14/19 23:29 36.7 C 57 L 20 187/83 H 97
--- NOTE | 2019-07-15 10:47 | Infectious Disease Consult ---
Date of Consultation July 15, 2019 Assessment & Plan (1) Pyelonephritis: no clear infectious etiology found during this admission but due to previous recurrent infection with corybacterium would suggest ongoing treatment. has had surgery and prostate cancer so would suggest longer course of abx in the range of 21 days. He is moving to [place] later today if he is d/c from hospital, doubt IV abx would be feasible in this situation. will change to omnicef. Ok for d/c from ID standpoint when otherwise stable. History of Present Illness Attending Physician: Villa Ordaz pt admitted due to hematuria x 4 days, now resolved. afebrile since admission. has h/o prostate cancer, being treated at [facility], has had multiple culture from urine dating back to 11/03/18 growing corynebacterium, has been treated with multiple short courses of po abx, can not remember, last course in late May. Urine cultures + 11/03, 01/09.05/30. UA done this admission, 10-30 wbc no bacteria, culture negative, blood culture negative. ct done, unchanged hydronephrosis from ct on 05/30. Pt is currently on IV cipro. Sensitivities done on 05/30 culture, sensitive to rocephin and vanco. ID consulted for outpt abx. Pt states he would like to be d/c later today as he is in the process of moving to [place] and has an appt to close on his house in [place] this afternoon. He has no f/c. no abd pain, no n/v/d. no abx allergies. no cp, sob, cough. overall feeling better. no gu complaints. Allergies Allergy/AdvReac Type Severity Reaction Status Date / Time hazelnut Allergy Severe Swelling Verified 07/13/19 18:07 of Lip/Tongue/Throat atorvastatin Allergy Intermediate "FUZZY Verified 07/13/19 18:07 THOUGHT PROCESS AND DEPRESSION LIKE SYMPTOMS" lisinopril Allergy Intermediate SWELLING Verified 07/13/19 18:07 IN ANKLES Kyxiyjb-[id number]-Exq Reductase Allergy Unknown Unknown Verified 07/13/19 18:07 Inhibitor Home Medications Home Medications Medication Instructions Recorded Confirmed Type Centrum Silver 1 tab PO QAM 07/04/18 07/13/19 History metoprolol tartrate 50 mg PO AMPM 07/04/18 07/13/19 History cholecalciferol (vitamin D3) 400 unit PO QAM 01/09/19 07/13/19 History [Vitamin D3] loratadine 10 mg PO DAILY PRN 01/09/19 07/13/19 History melatonin 2.5 mg PO HS 01/09/19 07/13/19 History ezetimibe 10 mg PO QPM 03/11/19 07/13/19 History metoprolol tartrate 50 mg tablet 25 mg PO QDL tab 04/19/19 07/13/19 History digoxin 125 mcg PO Q OTHER DAY 04/30/19 07/13/19 History terazosin 0 mg PO HS 05/16/19 07/13/19 History potassium chloride ER 10 mEq 10 meq PO QAM cap 05/30/19 07/13/19 History capsule,extended release clopidogrel 75 mg tablet 75 mg PO DAILY #90 tab 06/18/19 07/13/19 Rx omeprazole 40 mg capsule,delayed 40 mg PO DAILY #30 cap 06/18/19 07/13/19 Rx release venlafaxine ER 37.5 mg 37.5 mg PO DAILY #30 cap 06/18/19 07/13/19 Rx capsule,extended release 24 hr Patient History Medical History Adjustment disorder (Acute) Arthritis (Acute) HTN (hypertension) (Chronic) History of prostate cancer (Chronic) s/p surgery, radiation Anemia Anxiety Atrial fibrillation and flutter dx years ago - follows w/ Dr. Martinez - on warfarin CKD (chronic kidney disease) Last creatinine from 05/05/19 was 1.5 Diverticulosis GERD (gastroesophageal reflux disease) Hyperlipidemia Hypertension Intracardiac thrombus Patient on coumadin Kidney stones Osteoarthritis Pneumonia 03/11/19 admitted for pneumonia, resolved per patient. 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 Sleep apnea CPAP Sleep apnea uses CPAP Surgical History Status post implantation of artificial urinary sphincter (Chronic) Colon polyp REMOVED (BENIGN) VIA EGD H/O eye surgery RT EYE-LASER PROCEDURE History of colonoscopy History of esophagogastroduodenoscopy (EGD) History of lithotripsy History of prostatectomy History of tonsillectomy History of tooth extraction History of transesophageal echocardiography (CARMEN) Presence of Watchman left atrial appendage closure device 12/2018 - [facility] Family History Brother Family history of diabetes mellitus Family hx of colon cancer Alcohol abuse Cancer Hypertension Lung disease Cardiac disorder Father Alcohol abuse Hypertension Cardiac disorder Cancer Unknown Myocardial infarction Prostate cancer Colorectal cancer Social History Preferred Language: Latvian Communication Ability: Effective Patent Chemist Required: No Beliefs That Will Affect Care: None marital status: Current Living Situation: Spouse Other Information That Helps Us Care for You: No Feels Safe at Home: Yes Safety Concerns: Feels Safe At This Time Smoking Status: Never smoker Second Hand Exposure: No ; Hx Alcohol Use: No Hx Substance Use: No Review of Systems Review of Systems: All systems reviewed & are unremarkable except as noted in HPI & below Physical Exam Constitutional: WD/WN, vitals as above Eyes: PERRL, conjunctivae normal, anicteric sclerae ENMT: external ear and nose normal, oropharynx normal Neck: normal visual inspection Respiratory: normal respiratory effort, lungs clear to auscultation Cardiovascular: RRR, no murmur, no edema Gastrointestinal (Abdomen): normal bowel sounds, soft, nontender, no hepatosplenomegaly Musculoskeletal: no cyanosis or clubbing, extremities motor strength 5/5 Skin: no rashes, warm and dry Psychiatric: A+Ox3, euthymic affect Results & Data Vital Signs (Past 12 Hours) Vital Signs Temp Pulse Pulse Resp BP BP Pulse Ox 07/15/19 09:38 60 07/15/19 07:59 36.7 C 54 L 16 161/84 H 96 07/15/19 03:12 37.0 C 56 L 20 167/80 H 95 07/15/19 00:58 157/79 H 07/15/19 00:00 59 L 07/14/19 23:29 36.7 C 57 L 20 187/83 H 97 Laboratory Results Microbiology 07/13/19 18:55 Blood Aerobic Blood Culture - Preliminary No growth in Aerobic bottle after 24 hours. 07/13/19 18:55 Blood Anaerobic Blood Culture - Preliminary No growth in Anaerobic bottle after 24 hours. 07/13/19 19:02 Blood Aerobic Blood Culture - Preliminary No growth in Aerobic bottle after 24 hours. 07/13/19 19:02 Blood Anaerobic Blood Culture - Preliminary No growth in Anaerobic bottle after 24 hours. 07/13/19 16:40 Urine,Clean Catch Urine Culture - Preliminary No growth - Less than 1,000 colonies/mL, Final report to follow. PG Care Time/CCT Total # of Minutes Spent Total Time Spent with Patient: Total time spent is greater than 50% in coordination of care (as documented) at patient's floor/unit and/or counseling patient:
[2019-07-15] MEDS ORDERED: POTASSIUM CHLORIDE 20 MEQ TABCR PO STA ×2 (11:15→21:24)
--- NOTE | 2019-07-15 12:16 | Urology Progress Note ---
Date of Service July 15, 2019 Assessment & Plan (1) Hematuria, gross: 69yo M with extensive PMHx, admitted with cardiac issues and hematuria. Hematuria now resolved. Agree with ID recommendations for treatment of UTI. Awaiting cardiac clearance for discharge home. Pt plans to f/u with [facility] urology as he is in the process of moving to [place]. Thank you for allowing us to participate in the acute care of Mr. Suresh. Please reconsult us with additional questions, concerns or changes in patient status. Subjective Pt sitting up at side of bed eating lunch at time of evaluation today. Hematuria has resolved. Voiding spontaneously- clear yellow. Observed in urinal today. No new issues from perspective. ID recommendations appreciated for treatment of UTI. No dysuria, LUTS Review of Systems Review of Systems: All systems reviewed & are unremarkable except as noted in HPI & below Physical Exam Constitutional: no acute distress and not ill appearing Eyes: no nystagmus ENMT: Ears: no hearing impairment Neck: trachea midline Respiratory: no respiratory distress and no cough Cardiovascular: Vessels: no JVD Chest (Breasts): Chest: normal inspection of chest Gastrointestinal (Abdomen): Inspection/Auscultation: abdomen not distended and no abdominal edema Percussion/Palpation: abdomen soft; abdomen nontender Musculoskeletal: Head/Neck/Chest: normocephalic and head atraumatic Skin: no rashes, warm and dry Neurologic: awake; not confused and not obtunded Psychiatric: Orientation: alert and oriented x 3 Eye Contact: good eye contact Affect: no depressed affect Genitourinary: bladder normal to inspection; no CVA tenderness Lymphatic: no lymphadenopathy and no lymphedema Results & Data Vital Signs (Past 12 Hours) Vital Signs Temp Pulse Pulse Resp BP BP Pulse Ox 07/15/19 11:07 97 07/15/19 10:47 36.6 C 50 L 20 175/83 H 97 07/15/19 09:38 60 07/15/19 07:59 36.7 C 54 L 16 161/84 H 96 07/15/19 03:12 37.0 C 56 L 20 167/80 H 95 07/15/19 00:58 157/79 H PG Care Time/CCT Total # of Minutes Spent Total Time Spent with Patient: Total time spent is greater than 50% in coordination of care (as documented) at patient's floor/unit and/or counseling patient:
[2019-07-15] MEDS: METOPROLOL TARTRATE 25 MG TAB PO SCH (12:59)
[2019-07-15] MEDS: SPIRONOLACTONE 25 MG TAB PO SCH (12:59)
[2019-07-15] MEDS: CEFDINIR 300 MG CAP PO SCH ×2 (12:59→20:23)
[2019-07-15] MEDS: DIGOXIN 0.125 MG TAB PO SCH (16:04)
--- NOTE | 2019-07-15 17:55 | Hospitalist Progress Note ---
Date of Service July 15, 2019 Assessment & Plan (1) Elevated troponin: Peaked at 0.06. Now trending down. Likely demand ischemia. (2) History of prostate cancer: will be moving care to [place] area (3) Pyelonephritis: CT scan suggested Pyelitis/pyelonephritis on the right side due to heterogenous enhancement certainly an infection is possible had lethargy, malaise, poor appetite for several days prior to admission was weak and could not stand up however, no true fever or chills, no flank pain had some hematuria but had recent ureteral stent removal WBC has been normal x 2 checks, normal vitals here, no growth on urine culture he feels a lot better after some fluids and Cipro over night. D/W infectious disease on 07/15 switched to omnicef as obtained previous urine culture which showed cor ynebacterium sensitive to vanco and ceftriaxone. Resistant to pen/meropem. Patient will take oral dose today. (4) Hypokalemia: Patient continues to have hypokalemia. will recheck potassium in afternoon. will monitor trend. Added potassium sparing diuretic. (5) Hypophosphatemia: replaced on admission (6) Hydronephrosis: (7) Dyslipidemia: (8) GERD (gastroesophageal reflux disease): (9) Osteoarthritis: (10) History of GI bleed: (11) Atrial flutter: Subjective This is a pleasant 69-year-old male, currently denies any new symptoms at this time, except for lightheadedness after receiving his antibiotic. He reports that he moved to [place]. He will continue his care when he goes there later this week Review of Systems Review of Systems: All systems reviewed & are unremarkable except as noted in HPI & below Physical Exam Physical Exam: Constitutional: WD/WN, vitals as above Eyes: PERRL, conjunctivae normal, anicteric sclerae ENMT: external ear and nose normal, oropharynx normal Neck: trachea midline, no thyromegaly Respiratory: normal respiratory effort, lungs clear to auscultation Cardiovascular: RRR, no murmur, no edema Gastrointestinal (Abdomen): normal bowel sounds, soft, nontender, no hepatosplenomegaly Musculoskeletal: no cyanosis or clubbing, extremities motor strength 5/5 Skin: no rashes, warm and dry Neurologic: patellar DTR's 2+ bilat, sensation intact and PERRL, EOMI, accommodation nl, no face palsy, no dysarthria Psychiatric: A+Ox3, euthymic affect Lymphatic: no cervical or axillary lymphadenopathy Results & Data Vital Signs (Past 12 Hours) Vital Signs Temp Pulse Pulse Resp BP BP Pulse Ox 07/15/19 16:04 62 07/15/19 15:59 48 L 07/15/19 15:15 37.2 C 51 L 18 165/85 H 96 07/15/19 11:07 97 07/15/19 10:47 36.6 C 50 L 20 175/83 H 97 07/15/19 09:38 60 07/15/19 07:59 36.7 C 54 L 16 161/84 H 96 PG Care Time/CCT Total # of Minutes Spent Total Time Spent with Patient: Total time spent is greater than 50% in coordination of care (as documented) at patient's floor/unit and/or counseling patient: (1) Hydronephrosis Hydronephrosis type: unspecified Qualified Code(s): N13.30 - Unspecified hydronephrosis
[2019-07-15 19:33] LABS: BUN Creatinine Ratio 13.7 (10-20); Calcium 9.2 mg/dl (8.5-10.1); Creatinine Clr Calc Pharmacy 59.7 ml/min; Est GFR (African American) 69.3; Est GFR (Non-African American) 59.8; Potassium 3.2 mmol/L (3.5-5.1)
[2019-07-15] MEDS: TERAZOSIN HCL 1 MG CAP PO SCH (20:23)
[2019-07-15] MEDS: EZETIMIBE 10 MG TABLET PO SCH (20:23)
[2019-07-15] MEDS ORDERED: AMLODIPINE BESYLATE 5 MG TAB PO ONE (21:25)
[2019-07-16] MEDS: HydrALAZINE HCL 20 MG/ML VIAL IV PRN (00:19)
[2019-07-16 07:48] LABS: BUN Creatinine Ratio 14.1 (10-20); Calcium 9.6 mg/dl (8.5-10.1); Creatinine Clr Calc Pharmacy 63.3 ml/min; Est GFR (African American) 74.3; Est GFR (Non-African American) 64.1; Potassium 3.6 mmol/L (3.5-5.1)
[2019-07-16] MEDS: VENLAFAXINE HCL XR 37.5 MG CAPXR PO SCH (09:29)
[2019-07-16] MEDS: SPIRONOLACTONE 25 MG TAB PO SCH (09:29)
[2019-07-16] MEDS: CHOLECALCIFEROL (VITAMIN D) 400 UNITS TABLET PO SCH (09:29)
[2019-07-16] MEDS: POTASSIUM CHLORIDE 10 MEQ TABCR PO SCH (09:29)
[2019-07-16] MEDS: PANTOprazole 40 MG TAB PO SCH (09:30)
[2019-07-16] MEDS: METOPROLOL TARTRATE 50 MG TAB PO SCH ×2 (09:31→21:32)
[2019-07-16] MEDS: CEFDINIR 300 MG CAP PO SCH ×2 (09:31→21:31)
[2019-07-16] MEDS: NITROGLYCERIN 2% OINTMENT 30GM TUBE EXT SCH ×3 (09:55→21:32)
--- NOTE | 2019-07-16 10:21 | Cardiology Progress Note ---
Date of Service July 16, 2019 Assessment & Plan (1) Paroxysmal atrial flutter: No further episodes of atrial flutter as potassium replaced however blood pressures are climbing higher We will reinitiate hydralazine at reduced dose 25 mg 3 times daily, add topical nitrates until blood pressure controlled (2) Hypokalemia: Potassium 3.6 this morning. Spironolactone added yesterday we will give additional 20 me q. of potassium today and increase daily dosing to 20 M EQ per day (3) Pyelonephritis: (4) Hypertension: Patient with long-standing labile and difficult to control hypertension with recent difficulties with hypotension in association with infection and chemotherapeutic medications resulting in medication reduction As noted this admission blood pressures are higher will resume hydralazine as above Subjective Patient seen and examined, chart, medications reviewed. Overnight transient less chest discomfort tender to touch as well as left arm pain. Blood pressure significantly elevated. No signs of tachypalpitations by patient description though patient usually not cognizant of episodes No fevers or chills. No further hematuria. Records reviewed antihypertensives recently reduced in the last 3 months including discontinuation of hydralazine and diltiazem, reduction in terazosin Potassium improved 3.6 this morning Review of Systems Review of Systems: All systems reviewed & are unremarkable except as noted in HPI & below Physical Exam Constitutional: WD/WN, vitals as above Eyes: PERRL, conjunctivae normal, anicteric sclerae ENMT: external ear and nose normal, oropharynx normal Neck: trachea midline, no thyromegaly Respiratory: normal respiratory effort, lungs clear to auscultation Cardiovascular: Rate/Rhythm: regular rate and regular rhythm Heart Sounds: normal S1 and normal S2; no gallop and no murmur Palpation: normal PMI Vessels: normal carotid upstroke and radial pulses present; no JVD and no carotid bruit Extremities: no edema Chest (Breasts): Additional Comments: Mild left sternal tenderness to palpation as well as left arm tenderness with small healing ecchymosis left arm Gastrointestinal (Abdomen): normal bowel sounds, soft, nontender, no h epatosplenomegaly Musculoskeletal: no cyanosis or clubbing, extremities motor strength 5/5 Skin: no rashes, warm and dry Neurologic: PERRL, EOMI, accommodation nl, no face palsy, no dysarthria Psychiatric: A+Ox3, euthymic affect Results & Data Vital Signs (Past 12 Hours) Vital Signs Temp Pulse Pulse Resp BP BP Pulse Ox 07/16/19 07:44 74 54 L 20 183/88 H 175/84 H 97 07/16/19 07:11 36.7 C 57 L 18 176/86 H 96 07/16/19 02:18 56 L 164/77 H 07/16/19 00:17 182/87 H 07/15/19 23:04 36.4 C L 57 L 18 184/86 H 96
[2019-07-16] MEDS ORDERED: POTASSIUM CHLORIDE 20 MEQ TABCR PO ONE (10:41)
[2019-07-16] MEDS: METOPROLOL TARTRATE 25 MG TAB PO SCH (12:47)
[2019-07-16] MEDS: EZETIMIBE 10 MG TABLET PO SCH (21:31)
[2019-07-16] MEDS: TERAZOSIN HCL 1 MG CAP PO SCH (21:31)
[2019-07-16] MEDS ORDERED: AMLODIPINE BESYLATE 5 MG TAB PO ONE (22:09)
[2019-07-16] MEDS ORDERED: LOSARTAN POTASSIUM 50 MG TAB PO STA (22:09)
--- NOTE | 2019-07-16 22:12 | Hospitalist Progress Note ---
Date of Service July 16, 2019 Assessment & Plan (1) Elevated troponin: Peaked at 0.06. Now trending down. Likely demand ischemia. EKG negaive.dw cardio, no further workup required. chest pain likely muscularskeletal. (2) History of prostate cancer: will be moving care to [facility] (3) Pyelonephritis: CT scan suggested Pyelitis/pyelonephritis on the right side due to heterogenous enhancement certainly an infection is possible had lethargy, malaise, poor appetite for several days prior to admission was weak and could not stand up however, no true fever or chills, no flank pain had some hematuria but had recent ureteral stent removal WBC has been normal x 2 checks, normal vitals here, no growth on urine culture he feels a lot better after some fluids and Cipro over night. D/W infectious disease on 07/15 switched to omnicef as obtained previous urine culture which showed corynebacterium sensitive to vanco and ceftriaxone. Resistant to pen/meropem. Patient will take oral dose today. (4) Hypokalemia: Patient continues to have hypokalemia. will recheck potassium in afternoon. will monitor trend. Added potassium sparing diuretic. (5) Hypophosphatemia: replaced on admission (6) Hydronephrosis: (7) Dyslipidemia: (8) GERD (gastroesophageal reflux disease): (9) Osteoarthritis: (10) History of GI bleed: (11) Atrial flutter: (12) Hypertension: will restart home meds which were recently stopped. these include losartan, amlodipine. reviewed outpatient records Subjective Patient awoke with chest pain in the left side of the chest. This pain was dull and radiated to his left shoulder. Patient reports pain when manually pressing on chest. Patient denies diaphoresis, nausea, vomiting. Review of Systems Review of Systems: All systems reviewed & are unremarkable except as noted in HPI & below Physical Exam Physical Exam: Constitutional: WD/WN, vitals as above Eyes: PERRL, conjunctivae normal, anicteric sclerae ENMT: external ear and nose normal, oropharynx normal Neck: trachea midline, no thyromegaly Respiratory: normal respiratory effort, lungs clear to auscultation Cardiovascular: RRR, no murmur, no edema Gastrointestinal (Abdomen): normal bowel sounds, soft, nontender, no hepatosplenomegaly Musculoskeletal: no cyanosis or clubbing, extremities motor strength 5/5 Skin: no rashes, warm and dry Neurologic: patellar DTR's 2+ bilat, sensation intact and PERRL, EOMI, accommodation nl, no face palsy, no dysarthria Psychiatric: A+Ox3, euthymic affect Lymphatic: no cervical or axillary lymphadenopathy Results & Data Vital Signs (Past 12 Hours) Vital Signs Temp Pulse Resp BP BP Pulse Ox 07/16/19 21:26 94 H 194/90 H 189/88 H 07/16/19 15:30 36.7 C 55 L 20 114/67 97 07/16/19 12:52 36.4 C L 54 L 18 177/85 H 171/83 H 96 PG Care Time/CCT Total # of Minutes Spent Total Time Spent with Patient: Total time spent is greater than 50% in coordination of care (as documented) at patient's floor/unit and/or counseling patient: (1) Hydronephrosis Hydronephrosis type: unspecified Qualified Code(s): N13.30 - Unspecified hydronephrosis
[2019-07-17] MEDS: NITROGLYCERIN 2% OINTMENT 30GM TUBE EXT SCH ×2 (03:50→11:04)
[2019-07-17] MEDS: SPIRONOLACTONE 25 MG TAB PO SCH (08:35)
[2019-07-17] MEDS: PANTOprazole 40 MG TAB PO SCH (08:36)
[2019-07-17] MEDS: CEFDINIR 300 MG CAP PO SCH (08:36)
[2019-07-17] MEDS: METOPROLOL TARTRATE 50 MG TAB PO SCH (08:36)
[2019-07-17] MEDS: CHOLECALCIFEROL (VITAMIN D) 400 UNITS TABLET PO SCH (08:36)
[2019-07-17] MEDS: VENLAFAXINE HCL XR 37.5 MG CAPXR PO SCH (08:37)
[2019-07-17] MEDS ORDERED: POTASSIUM CHLORIDE 20 MEQ TABCR PO SCH (09:00)
--- NOTE | 2019-07-17 10:50 | Cardiology Progress Note ---
Date of Service July 17, 2019 Assessment & Plan (1) Paroxysmal atrial flutter: No further episodes of atrial flutter observed Repeat BMP today to assess potassium level No sensed arrhythmias or documented arrhythmias on vital signs (2) Hypokalemia: Lab work ordered Patient will need close renal function fall on discharge given the addition of spironolactone, increased potassium and losartan on medical regimen (3) Pyelonephritis: (4) Hypertension: Improved today. Topical nitrates will be discontinued Renal function ordered for day with electrolytes Will need close renal follow-up post hospital disc Subjective Patient seen and examined, chart, medications reviewed. Patient feels better this morning no further arm or chest discomfort. No d izziness or lightheadedness. Blood pressures have improved. No tachypalpitations or elevated heart rates observed. Ambulatory in room without difficulty Physical Exam Constitutional: WD/WN, vitals as above Eyes: PERRL, conjunctivae normal, anicteric sclerae ENMT: external ear and nose normal, oropharynx normal Neck: trachea midline, no thyromegaly Respiratory: normal respiratory effort, lungs clear to auscultation Cardiovascular: Rate/Rhythm: regular rate and regular rhythm Heart Sounds: normal S1 and normal S2; no gallop and no murmur Palpation: normal PMI Vessels: normal carotid upstroke and radial pulses present; no JVD and no carotid bruit Extremities: no edema Gastrointestinal (Abdomen): normal bowel sounds, soft, nontender, no hepatosplenomegaly Musculoskeletal: no cyanosis or clubbing, extremities motor strength 5/5 Skin: no rashes, warm and dry Neurologic: PERRL, EOMI, accommodation nl, no face palsy, no dysarthria Psychiatric: A+Ox3, euthymic affect Results & Data Vital Signs (Past 12 Hours) Vital Signs Temp Pulse Resp BP BP Pulse Ox 07/17/19 07:19 36.6 C 72 20 132/67 98 07/17/19 05:37 162/83 H 07/16/19 23:32 36.9 C 55 L 19 182/112 H 97 Laboratory Results Laboratory Results - last 24 hr 07/17/19 05:19 Troponin I 0.033
[2019-07-17 11:31] LABS: BUN Creatinine Ratio 13.3 (10-20); Calcium 9.6 mg/dl (8.5-10.1); Creatinine Clr Calc Pharmacy 64.4 ml/min; Est GFR (African American) 75.9; Est GFR (Non-African American) 65.5; Potassium 3.2 mmol/L (3.5-5.1)
[2019-07-17 11:35] LABS: Troponin I 0.031 ng/ml (0-0.045)
[2019-07-17] MEDS: METOPROLOL TARTRATE 25 MG TAB PO SCH (12:24)
[2019-07-17] MEDS ORDERED: POTASSIUM CHLORIDE 20 MEQ TABCR PO STA (12:44)
== END 2019-07-17 15:56 | disposition home or self-care (01) | DRG 690 ==
LOC: 2E 16:06 → ED 16:06 → SUATTDRO 20:14 → 2E 21:12 → SUATTDRO 07-14 13:15 → 4W 07-15 14:20